=== PATIENT | female | born 1965 | race African-American/Black ===

== ENCOUNTER 2021-12-27 08:59 | Emergency (ER) | payer OTHER, SELFPAY ==
[2021-12-27 09:09] VITALS: BP 130/74; BP 130/85; PULSE 75; PULSE 91; RESP 16; TEMP 36.7; O2SAT 97; O2SAT 98; BMI 20.5
[2021-12-27 09:55] LABS: Glucose, Whole Blood 202 mg/dL (60-115)
[2021-12-27 10:04] LABS: MANUAL DIFF FLAG NO
[2021-12-27 10:06] LABS: Hematocrit 40.7 % (37.0-47.0); Hemoglobin 13.3 g/dl (12.0-16.0); Imm Gran Abs Auto 0.01 X10*3/uL (0.00-0.03); Imm Gran Pct Auto 0.3 % (0.0-0.4); Lymphocytes Absolute Auto 1.1 X10*3/uL (1.2-4.9); Lymphocytes Percent Auto 33.4 % (20-40); Mean Corpuscular HGB Conc 32.7 g/dl (31.0-35.0); Mean Corpuscular Hemoglobin 30.4 pg (27.0-33.0); Mean Corpuscular Volume 93.1 fL (80.0-98.0); Mean Platelet Volume 9.5 fL (9.4-12.3); Monocytes Absolute Auto 0.3 X10*3/uL (0.1-1.2); Monocytes Percent Auto 9.2 % (2-11); Neutrophils Absolute Auto 1.9 x10*3/uL (2.0-8.3); Neutrophils Percent Auto 57.1 % (45-73); Platelet Count 152 X10*3/uL (160-400); Red Blood Count 4.37 X10*6/uL (4.20-5.50); White Blood Count 3.3 X10*3/uL (4.8-10.8)
[2021-12-27 10:26] LABS: Alanine Aminotransferase 22 U/L (0-31); Albumin Level 4.1 g/dL (3.5-5.0); Alkaline Phosphatase 87 U/L (39-117); Anion Gap 11 (12-20); Aspartate Amino Transferase 25 U/L (5-31); Bilirubin Total 0.4 mg/dL (0.0-1.0); Blood Urea Nitrogen 16 mg/dL (9-16); Calcium 9.1 mg/dL (8.4-10.2); Carbon Dioxide 26 mmol/L (22-29); Chloride 103 mmol/L (96-108); Creatinine Clr Calc Pharmacy 64.8; Estimated Glomerular Filt Rate > 60; Glucose Random 247 mg/dL (60-115); Potassium 4.4 mmol/L (3.3-5.1); Sodium 136 mmol/L (135-145); Total Protein 7.7 g/dL (6.5-8.0)
--- NOTE | 2021-12-27 11:00 | ECG_ITS ---
Test Reason : NEAR SYNOPE Blood Pressure : / mmHG Vent. Rate : 063 BPM Atrial Rate : 063 BPM P-R Int : 194 ms QRS Dur : 082 ms QT Int : 426 ms P-R-T Axes : 061 031 037 degrees QTc Int : 435 ms Normal sinus rhythm Septal infarct (cited on or before 27-DEC-2021) Abnormal ECG When compared with ECG of 12-NOV-2018 21:11, No significant change was found Referred By: Rosa Elena Linton Electronically Signed By:Emmanuel Means
[2021-12-27] MEDS: Ketorolac Tromethamine 30 MG/ML VIAL IVPUSH (11:19)
[2021-12-27] MEDS: Cyclobenzaprine HCl 10 MG TABLET PO (11:19)
--- NOTE | 2021-12-27 11:33 | ED.BACK ---
HPI - Back Pain/Injury General Chief Complaint: Back Pain/Injury Stated Complaint: NEAR SYNCOPE Time Seen by Provider: 12/27/21 10:59 Source: patient Mode of arrival: EMS Limitations: no limitations History of Present Illness HPI Narrative: Patient presents to the emergency department for evaluation of right mid back pain. She reports that she experiences chronic lower back pain Secondary to bulging discs, arthritis, degenerative disc disease for which she treats with topical heat and Aleve. For the past week she has been having mid right-sided back pain that feels like a spasm . Today while she was at work the pain became very severe, and she sat herself on the floor. Denies lower extremity weakness or giving out of her legs. No head strike or precipitating dizziness/lightheadedness. Upon EMS arrival noted to have blood sugar of 351, reports she a yogurt earlier this morning, no history of diabetes, but has not been seen by primary care provider for at least 2 years. Denies fevers, chills, lightheadedness, dizziness, neck pain, chest pain, palpitations, shortness of breath, difficulty breathing, nausea, vomiting, abdominal pain, diarrhea, constipation, bloody or dark stools, dysuria, urinary frequency, hematuria, lower extremity edema, numbness or tingling to the extremities or perineum, bowel or bladder dysfunction. Denies any recent surgical procedures, any known immune compromising conditions, personal history of cancer, or IV drug usage. Related Data Allergies Allergy/AdvReac Type Severity Reaction Status Date / Time No Known Allergies Allergy Verified 12/27/21 09:13 Review of Systems Review of Systems: Constitutional: No weight loss, fever, chills, weakness or fatigue. Skin: No rash or itching. Cardiovascular: No chest pain, chest pressure or chest discomfort. No palpitations or pedal edema. Respiratory: No shortness of breath, cough or sputum production. Gastrointestinal: No anorexia, nausea, vomiting or diarrhea. No abdominal pain or blood in stool. Genitourinary: No burning micturition. No urinary frequency or incontinence. Musculoskeletal: positive back pain. No muscle pain, joint pain or stiffness. Psychiatric: No depression or anxiety. Yes all other systems are reviewed and are negative PMFSH Past Medical History Attestation statement: The following information was validated with the patient. Source: old records reviewed Medical History Arthritis DJD (degenerative joint disease) Hepatitis C Social History Social History Alcohol intake: current Patient Tobacco Use Status: Current everyday Tobacco user Use of substances other than those prescribed or required for medical reasons: No Advance Directives: No Advance Directives Information Provided: No Physical Exam Vital Signs: Vital Signs: Last Vital Signs Temp 98.1 F 12/27/21 09:09 Pulse 75 12/27/21 09:09 Resp 16 12/27/21 09:09 BP 130/74 12/27/21 09:09 Pulse Ox 97 12/27/21 09:09 BMI result Body Mass Index 20.5 Vital signs have been reviewed as normal and appeared to be correct. Blood pressure normal.? Heart rate normal.? Respiration rate normal. Temperature normal.? Oxygen saturation normal. Appearance: Alert.?Oriented to person, place and time. No acute distress.?Normal affect. Eyes: Pupils equal, round and reactive to light.? ENT: Pharynx normal.?? Neck: Normal inspection.? Neck supple.?? CVS: Heart sounds normal. Normal heart rate and rhythm.? Pulses normal; bilateral radial pulses 2+, bilateral posterior tibial/dorsalis pedis pulses 2+.? Respiratory: No respiratory distress.? Lung sounds clear to auscultation bilaterally?? Abdomen: Soft and non-tender. Normoactive bowel sounds. No pulsatile mass.?? Skin: Skin warm and dry.? Normal skin color.? Normal skin turgor.?? Extremities: No lower extremity edema.? No calf ttp? Back: + mild paraspinal muscular tenderness from lumbar region to coccyx. No CVA tenderness. No midline spinal tenderness, step-off's, or deformity. Full ROM intact in bilateral lower extremities. Straight leg test negative / positive on right; Straight leg test negative / positive on left. No rashes, lesions, areas of induration or fluctuance, or signs of infection noted., Neuro: Moves all extremities spontaneously. 5/5 strength in hip extension/flexion, abduction, adduction. Sensation to light touch intact bilaterally. Patellar and Achilles reflex 2+ bilaterally. No ataxia, gait normal and steady.. No focal neuro deficits. ( Squat and rise - L4 / Heel walk or dorsiflex - L5 / Toe walk - S1) Course Course Course Narrative: patient is a 56-year-old female with a past medical history degenerative disc disease, arthritis, hepatitis C reportedly has not been on treatment for the past 2 years, presenting to the emergency department for evaluation of right mid back pain that feels like spasming. Denies precipitating injury and does have chronic lower back pain. Pain seems most consistent with muscular pain, although cannot completely exclude herniated disc. On neurological exam there are no deficits. Not consistent with spinal fracture, spinal infection, epidural abscess, AAA, epidural abscess, or dissection. No high risk past medical history including incontinence, fever, immunosuppression, recent surgery or lumbar puncture, coagulopathy, significant trauma, recent unintentional weight loss, pulsatile mass, history of cancer, history of TB, history of IV drug use that would warrant MRI or CT. On exam no concern for cauda equina syndrome. No imaging is currently indicated at this time. For EMS patient was noted to have an elevated blood glucose reading in the 300s, without any prior history of known diabetes, repeat point of care glucose was 202. Discussed with patient that she may be diabetic based on this finding alone as it has been many hours since she last ate, will obtain urinalysis to evaluate for glucosuria. In addition will obtain CBC, CMP, troponin, EKG. Patient has arrived, her significant other, patient to be medicated with Toradol 30 mg IV push and Flexeril 10 mg p.o. Reevaluation(s) Reevaluation #1: presented to patient's room for re-evaluation at this time and she is not present, hospital attire on the bed, advised by nursing staff that patient had eloped. Urinalysis does reveal glucosuria, concern for new diagnosis of diabetes, BUN and creatinine are stable, anion gap is Magalys, not suspect DKA at this time. Troponin <3.5, EKG reveals normal sinus rhythm. Attempted to contact patient at her listed contact phone number, to advise her of concern for new diagnosis of diabetes, unable to make contact, left voicemail. Of note patient did report to me that she has an upcoming appointment with a new primary care provider next week, She reported she has not seen a primary care provider within the past 2 years at least. Time: 14:19 [facility] - Back Pain/Injury Medical Records Attestation: I reviewed the patient's medical records. Lab Data Attestation: I reviewed the patient's lab results. Result diagrams: 12/27/21 09:57 12/27/21 09:57 Labs: Lab Results 12/27/21 12/27/21 12/27/21 Range/Units 09:50 09:57 09:57 WBC 3.3 L (4.8-10.8) X10*3/uL RBC 4.37 (4.20-5.50) X10*6/uL Hgb 13.3 (12.0-16.0) g/dl Hct 40.7 (37.0-47.0) % MCV 93.1 (80.0-98.0) fL MCH 30.4 (27.0-33.0) pg MCHC 32.7 (31.0-35.0) g/dl RDW 11.0 (11.0-16.0) % Plt Count 152 L (160-400) X10*3/uL MPV 9.5 (9.4-12.3) fL Immature Gran % (Auto) 0.3 (0.0-0.4) % Neut % (Auto) 57.1 (45-73) % Lymph % (Auto) 33.4 (20-40) % Sanders % (Auto) 9.2 (2-11) % Eos % (Auto) 0.0 (0-4) % Baso % (Auto) 0.0 (0-2) % Lymph # (Auto) 1.1 L (1.2-4.9) X10*3/uL Sanders # (Auto) 0.3 (0.1-1.2) X10*3/uL Eos # (Auto) 0.0 (0.0-0.4) X10*3/uL Baso # (Auto) 0.0 (0.0-0.2) X10*3/uL Abs Immat Gran (auto) 0.01 (0.00-0.03) X10*3/uL Absolute Neuts (auto) 1.9 L (2.0-8.3) x10*3/uL Absolute Nucleated RBC 0.000 (0.0-0.012) X10*3/uL Nucleated RBC % (auto) 0.0 (0.0-0.2) /100WBC Sodium 136 (135-145) mmol/L Potassium 4.4 (3.3-5.1) mmol/L Chloride 103 (96-108) mmol/L Carbon Dioxide 26 (22-29) mmol/L Anion Gap 11 L (12-20) BUN 16 (9-16) mg/dL Creatinine 0.86 (0.5-1.4) mg/dL Estim Creat Clear Calc 64.8 Estimated GFR > 60 POC Glucose 202 H (60-115) mg/dL Random Glucose 247 H (60-115) mg/dL Calcium 9.1 (8.4-10.2) mg/dL Total Bilirubin 0.4 (0.0-1.0) mg/dL AST 25 (5-31) U/L ALT 22 (0-31) U/L Alkaline Phosphatase 87 (39-117) U/L Troponin I High Sens (<3.5-17.0) ng/L Total Protein 7.7 (6.5-8.0) g/dL Albumin 4.1 (3.5-5.0) g/dL Urine Color Urine Appearance Urine pH (5.0-8.0) Ur Specific [place] (1.005-1.025) Urine Protein (NEG-TRACE) MG/DL Urine Glucose (UA) (NEG) MG/DL Urine Ketones (NEG) MG/DL Urine Blood (NEG) Urine Nitrite (NEG) Ur Leukocyte Esterase (NEG) 12/27/21 12/27/21 Range/Units 09:57 11:22 WBC (4.8-10.8) X10*3/uL RBC (4.20-5.50) X10*6/uL Hgb (12.0-16.0) g/dl Hct (37.0-47.0) % MCV (80.0-98.0) fL MCH (27.0-33.0) pg MCHC (31.0-35.0) g/dl RDW (11.0-16.0) % Plt Count (160-400) X10*3/uL MPV (9.4-12.3) fL Immature Gran % (Auto) (0.0-0.4) % Neut % (Auto) (45-73) % Lymph % (Auto) (20-40) % Sanders % (Auto) (2-11) % Eos % (Auto) (0-4) % Baso % (Auto) (0-2) % Lymph # (Auto) (1.2-4.9) X10*3/uL Sanders # (Auto) (0.1-1.2) X10*3/uL Eos # (Auto) (0.0-0.4) X10*3/uL Baso # (Auto) (0.0-0.2) X10*3/uL Abs Immat Gran (auto) (0.00-0.03) X10*3/uL Absolute Neuts (auto) (2.0-8.3) x10*3/uL Absolute Nucleated RBC (0.0-0.012) X10*3/uL Nucleated RBC % (auto) (0.0-0.2) /100WBC Sodium (135-145) mmol/L Potassium (3.3-5.1) mmol/L Chloride (96-108) mmol/L Carbon Dioxide (22-29) mmol/L Anion Gap (12-20) BUN (9-16) mg/dL Creatinine (0.5-1.4) mg/dL Estim Creat Clear Calc Estimated GFR POC Glucose (60-115) mg/dL Random Glucose (60-115) mg/dL Calcium (8.4-10.2) mg/dL Total Bilirubin (0.0-1.0) mg/dL AST (5-31) U/L ALT (0-31) U/L Alkaline Phosphatase (39-117) U/L Troponin I High Sens < 3.5 (<3.5-17.0) ng/L Total Protein (6.5-8.0) g/dL Albumin (3.5-5.0) g/dL Urine Color YELLOW Urine Appearance CLEAR Urine pH 6.0 (5.0-8.0) Ur Specific [place] 1.015 (1.005-1.025) Urine Protein NEG (NEG-TRACE) MG/DL Urine Glucose (UA) 250 H (NEG) MG/DL Urine Ketones NEG (NEG) MG/DL Urine Blood NEG (NEG) Urine Nitrite NEG (NEG) Ur Leukocyte Esterase NEG (NEG) ECG Data Attestation: I personally reviewed and interpreted this ECG as follows: ECG interpretation date: 12/27/21 Interpretation: Rate: 63 Rhythm:? normal sinus rhythm [place]:? normal Normal P waves.? Normal RADHA.?? Normal QRS complex.?? ST T wave :?? no ST elevation, no ST depression qTC: 435 prior studies:? November 2018 The study has been interpreted contemporaneously by me. Discharge Plan Discharge Clinical Impression: Back pain, Acute hyperglycemia Patient Disposition: Elopement
[2021-12-27 11:36] LABS: Appearance Urine CLEAR; Color Urine YELLOW; Glucose Urine UA 250 MG/DL (NEG); Leukocyte Esterase Urine NEG (NEG); Nitrite Urine NEG (NEG); Specific Gravity - Urine 1.015 (1.005-1.025); Urine Blood NEG (NEG); Urine Ketones NEG (NEG); Urine Protein NEG (NEG-TRACE)
[2021-12-27 12:15] LABS: Troponin-I High Sensitivity < 3.5 ng/L (<3.5-17.0)
== END 2021-12-27 14:24 | disposition left against medical advice (07) ==
PROVIDERS: Nurse Practitioner Family; Emergency Provider Emergency Medicine Emergency Medical Services
DX: R55 Syncope and collapse (principal); M54.50 Low back pain, unspecified; E72.51 Non-ketotic hyperglycinemia; F17.200 Nicotine dependence, unspecified, uncomplicated; Z71.6 Tobacco abuse counseling; Z79.899 Other long term (current) drug therapy
CPT/HCPCS: 36415; 80053; 81003; 82947; 84484; 85025; 93005; 96374; 99284; J1885

== ENCOUNTER 2021-12-28 08:08 | Emergency (ER) | payer OTHER, SELFPAY ==
[2021-12-28 08:28] VITALS: BP 128/85; PULSE 88; RESP 18; TEMP 36.8; O2SAT 100; BMI 21.3
--- NOTE | 2021-12-28 10:55 | ED.FALL ---
HPI - Fall General Chief Complaint: Fall Stated Complaint: FALL WRI Time Seen by Provider: 12/28/21 09:58 Source: patient Mode of arrival: ambulatory Limitations: no limitations History of Present Illness HPI Narrative: 56 y/o female presenting to the ER for work clearance. She was seen here yesterday for low back pain s/p slip and fall at work. She eloped after being here for 7+ hours and went home without her d/c paperwork. Her work is requesting she get re-evaluated for clearance to return to work. She reports her low back is mildly sore but nothing unbearable. She took tylenol with some relief. She slept well. No numbness, weakness, or tingling in the legs. No bowel or bladder incontinence. She is walking well and would like to go back to work today. MD complaint: fall Onset (ago): day(s) (1) Fall from: standing Fall witnessed: yes, by bystander Place fall occurred: work Loss of consciousness: none Prolonged down time: no Symptoms prior to fall: none Context: tripped/slipped Location of injury: back and buttocks Severity: mild Severity scale (1-10): 2 Quality: aching Associated symptoms (after fall): denies Related Data Allergies Allergy/AdvReac Type Severity Reaction Status Date / Time No Known Allergies Allergy Verified 12/28/21 08:28 Review of Systems Review of Systems: Constitutional: No Fever, No Chills Cardiovascular: No Chest Pain, No SOB Gastrointestinal: No Nausea, No Vomiting, No abdominal Pain Genitourinary: No Dysuria, No Urinary Frequency, No Hematuria Musculoskeletal: + joint pain, + Myalgias Skin: No Skin Lesions, No rash Neuro: No Weakness, No Numbness, No Dizziness, No Headache Heme/Lymph: No Bruising Endocrine: No Polyuria, No Polydipsia PMFSH Past Medical History Medical History Arthritis DJD (degenerative joint disease) Hepatitis C Social History Social History Alcohol intake: current Patient Tobacco Use Status: Current everyday Tobacco user Advance Directives: No Advance Directives Information Provided: No Physical Exam Vital Signs: Vital Signs: Last Vital Signs Temp 98.3 F 12/28/21 08:28 Pulse 88 12/28/21 08:28 Resp 18 12/28/21 08:28 BP 128/85 12/28/21 08:28 Pulse Ox 100 12/28/21 08:28 BMI result Body Mass Index 21.3 Appearance: Alert. Oriented X3. No acute distress. HEENT: normal inspection CVS: Normal heart rate and rhythm. Pulses normal. Respiratory: No respiratory distress. Skin: Skin warm and dry. Normal skin color. Normal skin turgor. No rashes. ack: Normal inspection. Mild soft tissue tenderness of the low lumbar area bilaterally, no ecchymosis. Normal range of motion of the spine. No point tenderness or midline tenderness. Extremities: Atraumatic x4, normal inspection. Neuro: Oriented X 3. No motor deficit. No sensory deficit. steady gait. Course Course Course Narrative: 56-year-old female presents for re-evaluation and return to work after a low being from the ER yesterday after a fall. Her examination is largely unremarkable and she has no red flag symptoms of low back pain. At this time she is cleared to go back to work. She is meeting with her PCP next Saturday for the 1st time evaluation. She was hyperglycemic yesterday with no history of diabetes. She is stable for discharge home with outpatient follow-up. May return to work. Critical Care Time Critical Care Time Critical Care Time: No Discharge Plan Discharge Clinical Impression: Low back pain Patient Disposition: Home, Self-Care Additional Instructions: Follow up with your doctor next week as scheduled. Take Motrin and/or Tylenol as needed for back pain. If you develop new or worsening symptoms call 911 or come back to the ER for further evaluation. Stand Alone Forms: Work/School Release
== END 2021-12-28 11:11 | disposition home or self-care (01) ==
PROVIDERS: Emergency Provider Emergency Medicine
DX: Z04.2 Encounter for examination and observation following work accident (principal); M54.50 Low back pain, unspecified
CPT/HCPCS: 99282

== ENCOUNTER 2023-09-15 14:50 | Emergency (ER) | payer OTHER, SELFPAY ==
[2023-09-15 14:57] VITALS: BP 140/76; PULSE 90; RESP 18; TEMP 35.7; O2SAT 100; BMI 17.6
--- NOTE | 2023-09-15 15:02 | ED_ITS ---
HPI - Back Pain/Injury General Chief Complaint: Back Pain/Injury Stated Complaint: Dizziness/leg weakness Time Seen by Provider: 09/15/23 15:42 Source: patient Mode of arrival: ambulatory Limitations: no limitations History of Present Illness HPI Narrative: Patient is a 58 year old assigned female at with no reported medical history presenting to the emergency department today with low back pain. Patient states that she has been having low back pain for a few days that radiates down her legs, left more than right. Patient states that she had a muscle relaxer at home that she took and that made her dizzy. Patient states that Diclofenac works well but she does not have any more at home. Patient denies any dizziness, lightheadedness, abdominal pain, nausea, vomiting, fever, chills, blurry vision, double vision, loss of vision, chest pain, difficulty breathing, shortness of breath, night sweats, pain with urination, increased urinary frequency, increased urinary urgency, blood in her urine or stool, syncope or a near syncopal episode, recent trauma or falls, bowel incontinence, bladder incontinence, bowel retention, bladder retention, or any other complaints at this time. Onset (ago): day(s) Timing: constant Severity: mild Related Data Previous Rx's Medication Instructions Recorded diclofenac potassium 50 mg tablet 50 mg PO BID #14 tabs 09/15/23 Allergies Allergy/AdvReac Type Severity Reaction Status Date / Time No Known Allergies Allergy Verified 09/15/23 14:57 Review of Systems Constitutional: Constitutional: Reports no additional constitutional complaints, Denies chills, Denies fever(s) and Denies night sweats Eyes: Eyes: Reports no additional eye complaints, Denies blurry vision, Denies change in vision, Denies diplopia, Denies eye discharge, Denies loss of vision and Denies eye pain ENT: Denies dizziness Cardiovascular: Cardiovascular: Reports no additional cardiovascular complaints, Denies chest pain, Denies lightheadedness, Denies Loss of Consciousness and Denies dyspnea Respiratory: Respiratory: Reports no additional respiratory complaints and Denies dyspnea Gastrointestinal: Gastrointestinal: Reports no additional gastrointestinal complaints, Denies abdominal pain, Denies melena, Denies hematochezia, Denies change in bowel habits and Denies change in stool character Genitourinary: Genitourinary: Denies hematuria, Denies urinary frequency, Denies dysuria, Denies urinary incontinence, Denies urinary hesitancy and Denies urinary urgency Musculoskeletal: Musculoskeletal: Reports no additional musculoskeletal complaints, Reports back pain, Denies numbness and Denies tingling Neurologic: Denies dizziness, Denies loss of vision, Denies numbness and Denies tingling Psychiatric: Psychiatric: Reports no additional psychiatric complaints Endocrine: Endocrine: Reports no additional endocrine complaints Hematologic/Lymphatic: Hematologic/Lymphatic: Reports no additional hematologic/lymphatic complaints Allergic/Immunologic: Allergic/Immunologic: Reports no additional allergic/immunologic complaints [facility] Past Medical History Attestation statement: The following information was validated with the patient. Source: old records reviewed and nursing notes reviewed Medical History Hepatitis C Arthritis DJD (degenerative joint disease) Social History Social History Alcohol intake: current Patient Tobacco Use Status: Current everyday Tobacco user Advance Directives: No Advance Directives Information Provided: Yes Physical Exam Vital Signs: Vital Signs: Last Vital Signs Temp 96.2 F L 09/15/23 14:57 Pulse 90 09/15/23 14:57 Resp 18 09/15/23 14:57 BP 140/76 H 09/15/23 14:57 Pulse Ox 100 09/15/23 14:57 O2 Del Method Room Air 09/15/23 14:57 BMI result Body Mass Index 17.6 Const: General: cooperative, no acute distress, alert and awake Nutritional Appearance: well nourished Orientation/consciousness: patient oriented x3 Limitations: no limitations HEENT: Head: Yes normal to inspection and Yes atraumatic Ears: hearing grossly normal bilaterally and external ears normal General nose exam: Normal external nose present, no nasal discharge noted and no epistaxis Face and sinus: Yes normal facial exam, No abrasion and No laceration Mouth: Normal oral and palatal mucosa present, no drooling and no muffled voice Eyes: General: appearance normal, both eyes and all related structures Periorbital: periorbital findings normal Eyelids: Yes eyelids normal Conjunctivae: conjunctivae normal Pupils: Equal, round and reactive pupils present EOM: EOMs intact bilaterally Neck: Neck: Yes normal visual inspection, Yes full ROM and Yes no lymphadenopathy Chest: Chest palpation & inspection: normal inspection of the chest Resp: Effort & Inspection: normal respiratory effort and able to speak in complete sentences GI: Inspection: Yes normal to inspection : General: Yes no CVA tenderness Back/Spine/Pelvis: Back: no CVA tenderness Cervical Spine: normal cervical lordosis and cervical ROM normal Thoracic/Lumbar Spine: thoracic and lumbar spine normal to inspection Pelvis: no pain with anterior-posterior compression Neuro: General: patient oriented x3 and moves all extremities Cranial nerves: Yes Equal, round and reactive pupils present Cognition (Neuro): normal cognition Motor exam (neuro): 5/5 motor strength present throughout Sensory Exam: Normal double simultaneous stimulation for sensation Coordination: [id number] test normal Extrem: General: Yes normal to inspection, Yes full ROM and Yes capillary re fill normal Psych: Appearance: grossly normal Mental Status: mental status grossly normal Affect: normal affect Attitude: cooperative Thought process: Normal thought process present Thought content: Normal thought content present Insight: Good insight present (Psych) Course Course Course Narrative: RME; 58 yold female presents tot he ED for worsenig back pain. patient has known PMH of lumbar and cervical discs herniaiaont. feels sleepy due to taking muscle relaxer. be evaluated in [facility] Medications Administered Discontinued Medications Generic Name Dose Route Start Last Admin Trade Name Freq PRN Reason Stop Dose Admin Ketorolac Tromethamine 15 mg 09/15/23 15:56 09/15/23 16:51 Ketorolac Tromethamine 15 Mg/Ml Vial IM 09/15/23 15:57 15 mg ONCE ONE Administration Medical Decision Making Medical Decision Making [facility] Narrative: Patient is a 58 year old assigned female at with no reported medical histo ry presenting to the emergency department today with low back pain. Patient's physical exam was unremarkable. I explained my physical exam findings to the patient. I answered all questions asked by the patient. I stressed the importance of the patient taking her medication as prescribed. I stressed the importance of the patient following up with her primary care provider. I stressed the importance of the patient returning to the emergency department immediately if her symptoms were to worsen or if she were to develop any dizziness, shortness of breath, difficulty breathing, chest pain, blurry vision, loss of vision, nausea, vomiting, abdominal pain, fever, chills, back pain, or any other complaints. Patient verbalized agreement and understanding with this treatment plan and discharge. Differential Diagnosis Differential Diagnoses: The differential diagnosis associated with the presentation includes Low back pain Lumbar strain Sciatica Admission/Observation Consideration of admission/observation: Escalation of care including admission/observation considered Patient would have been admitted to the hospital had her clinical presentation warranted hospital admission. Prescription Management I considered prescription management with: Pain Medication (patient prescribed pain medication) Discharge Plan Discharge Clinical Impression: Strain of lumbar region Patient Disposition: Home, Self-Care Instructions: Acute Low Back Pain (ED) Additional Instructions: Follow up with your primary care provider. Return to the emergency department immediately if your symptoms worsen or if you develop any dizziness, shortness of breath, difficulty breathing, chest pain, blurry vision, loss of vision, nausea, vomiting, abdominal pain, fever, chills, back pain, or any other complaints. Prescriptions: New diclofenac potassium 50 mg tablet 50 mg PO BID Qty: 14 0RF Referrals: Dagoberto Miranda DO [Primary Care Provider] - Stand Alone Forms: Work/School Release Print Language: Pakistani
[2023-09-15] MEDS: Ketorolac Tromethamine 15 MG/ML VIAL IM (16:51)
--- NOTE | 2023-09-15 17:03 | PC.NURSE ---
pt medicated per OCT for 6/10 back pain.
== END 2023-09-15 17:04 | disposition home or self-care (01) ==
PROVIDERS: Emergency Provider Emergency Medicine Emergency Medical Services; PCP Pediatrics
DX: S39.012A Strain of muscle, fascia and tendon of lower back, initial encounter (principal); X58.XXXA Exposure to other specified factors, initial encounter; Y93.9 Activity, unspecified; Y92.9 Unspecified place or not applicable; Y99.8 Other external cause status
CPT/HCPCS: 96372; 99283; 99284; J1885

== ENCOUNTER 2023-09-18 08:49 | Outpatient (REF) | payer OTHER, SELFPAY | END 2023-09-18 08:50 | disposition home or self-care (01) | LOC: HO.HOSX 08:49 | PROVIDERS: Visit Provider Physical Medicine & Rehabilitation | DX: Z13.89 Encounter for screening for other disorder (principal) ==

== ENCOUNTER 2023-09-18 10:35 | Outpatient (AMB) | payer OTHER, SELFPAY ==
--- NOTE | 2023-09-18 10:54 | A.OFFVIS_ITS ---
Intake Intake Visit Reasons: Acute Low Back Pain Intake Note: Cele is a 58 year old female who presents toay with complaints of lower back pain. Patient reports that she has chronic lower back pain with tingling/pain radiating down the legs, left worse than right. She has tried muscle relaxer but this made her dizzy. She takes diclofenac which is helpful but she has run out. Hx of physical therapy that has been helpful. She feels pain all the time, with little releif. Allergies No Known Allergies Allergy (Verified 09/15/23 14:57) Medication List - Last Reconciled 09/18/23 by Marie Cowan MD diclofenac potassium 50 mg PO BID duloxetine 60 mg PO DAILY HPI HPI Comments History of Present Illness Details Here with . Been having lower back pain and leg pain, 3 weeks. Denies falls or accidents prior. 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 New onset constant left back pain, radiates goes to left groin, knee and you. Sometimes numbness on bottom of left foot. Pain with walking, left knee feels like it will give way. No incontinence. Been constipated. No urination issues. Had similar incident, 12 years ago, treated with PT, got better after. 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 Patient was appropriately conversant and oriented. Good historian. MSK: No specific abnormalities found on inspection of the spine and all extremities. Tender lumbar paraspinals and SI joints bilateral. No tenderness over spinous processes. Lumbar ROM was full. Bilateral hip, knee and ankle ROM WNL. No ligamentous laxity or crepitance. No increased effusion. Straight-leg raising test negative. FABERE test negative. Strength is 5/5 in all muscle groups tested. No increased tone noted. Neurological: Strength 5/5. Depressed reflexes bilateral patellar? Intact reflexes on ankles. Kimball?s negative bilaterally. Babinski was down going bilaterally. Clonus was negative. Gait is non-antalgic without loss of balance. Results Reviewed Results Reviewed: I independently reviewed the results of the following: She brought a CD of lumbar x-rays done externally. Decreased disc space seen between L3, L4, L5. Did not see fracture but images unclear. No official reading came with the CD. 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 Sending patient for urgent lumbar MRI to evaluate for disc herniation. Patient returning to work tomorrow but I will give her restrictions, no lifting above 10 lb and no bending. May continue NSAIDs and duloxetine. Discussed red flags to watch out for and to seek Urgent Care if so. Assessment and plan discussed with patient, and patient was agreeable. All questions were answered thoroughly. Follow-up after MRI. 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
== END 2023-09-18 11:29 | disposition home or self-care (01) ==
PROVIDERS: PCP Pediatrics; Visit Provider Physical Medicine & Rehabilitation
DX: M51.36 Other intervertebral disc degeneration, lumbar region (principal); M51.26 Other intervertebral disc displacement, lumbar region; M54.12 Radiculopathy, cervical region
CPT/HCPCS: 99204

== ENCOUNTER 2023-11-14 18:03 | Outpatient (REF) | payer SELFPAY ==
--- NOTE | ~2023-11-14 | MR_ITS ---
EXAMINATION: MR LUMBAR SPINE WITHOUT CONTRAST CLINICAL INFORMATION: Radiculopathy COMPARISON: Outside MRI lumbar spine 11/14/2018 TECHNIQUE: MRI of the lumbar spine was obtained using routine sequences without contrast. FINDINGS: Motion degraded examination Normal anatomic alignment. No suspicious marrow signal or focal osseous lesion. The vertebral body heights are maintained. Disc desiccation and height loss at L3-L4 and L4-L5 where there are degenerative endplate contour changes and mixed type I and type II endplate marrow signal changes. The conus medullaris terminates at the level of T12-L1. The distal spinal cord is normal in appearance. The cauda equina nerve roots appear normal. No significant abnormalities of the paraspinal musculature. Limited evaluation of the intra-abdominal structures without significant abnormalities. The abdominal aorta is of normal contour and caliber. SPINAL LEVELS: L1-L2: No significant spinal canal or neuroforaminal narrowing. L2-L3: Shallow broad-based disc bulge. Stable mild bilateral neural foraminal narrowing. L3-L4: Disc osteophyte complex, facet arthropathy. No significant central spinal canal stenosis. Stable subarticular zone narrowing with compression of the traversing L4 nerve roots and moderate right and severe left neural foraminal narrowing with impingement of the exiting L3 nerve roots. L4-L5: Disc osteophyte complex, facet arthropathy. No significant central spinal canal stenosis. Stable subarticular zone narrowing with mass effect on the traversing L5 nerve roots and severe right and moderate left neural foraminal narrowing with impingement of the exiting L4 nerve roots. L5-S1: No significant spinal canal or neuroforaminal narrowing. Shallow central disc protrusion and facet arthropathy. MR/MR lumbar spine wo con IMPRESSION: Motion degraded examination. Multilevel lumbar spondylosis has not significantly progressed compared to MRI from 11/14/2018, most notable at L3-L4 and L4-L5 where there is bilateral subarticular zone narrowing with mass effect on the traversing L4 and L5 nerve roots and moderate to severe bilateral neural foraminal narrowing with impingement of the exiting L3 and L4 nerve roots.
== END 2023-11-14 18:04 | disposition home or self-care (01) ==
LOC: HO.MRI 18:03
PROVIDERS: PCP Pediatrics; Visit Provider Physical Medicine & Rehabilitation
DX: M54.12 Radiculopathy, cervical region (principal); M51.36 Other intervertebral disc degeneration, lumbar region; M51.26 Other intervertebral disc displacement, lumbar region
CPT/HCPCS: 72148

== ENCOUNTER 2023-12-26 14:09 | Emergency (ER) | payer OTHER, SELFPAY ==
--- NOTE | ~2023-12-26 | XR_ITS ---
EXAMINATION: XR LUMBOSACRAL SPINE CLINICAL INFORMATION: Low back pain COMPARISON: MRI lumbar spine from 11/14/2023 TECHNIQUE: Three views of the lumbosacral spine. FINDINGS: 5 nonrib-bearing lumbar-type vertebral bodies. No acute visible fracture or dislocation. Slight levocurvature of the thoracolumbar junction. Moderate multilevel degenerative changes greatest at L3-L4 and L4-L5 with disc space narrowing, endplate process, vacuum disc phenomenon, osteophyte from it, and lower lumbar spine facet arthropathy. Vertebral body heights and disc spaces are maintained. Posterior bones are intact. Paraspinal soft tissues are unremarkable. Fecal loading the visualized colon. XR/XR lumbar spine 2-3V IMPRESSION: 1. No acute visible fracture or dislocation. 2. Slight levocurvature of the thoracolumbar junction. 3. Moderate multilevel degenerative changes greatest at L3-L4 and L4-L5.
--- NOTE | ~2023-12-26 | XR_ITS ---
EXAMINATION: XR ABDOMEN KUB CLINICAL INDICATION: Constipation COMPARISON: None available. TECHNIQUE: AP view of the abdomen. FINDINGS: No dilated loops of bowel to suggest obstruction. Mild to moderate fecal loading greatest in the distal transverse, descending, and sigmoid colon. Dextrocurvature of the thoracal lumbar spine. Visualized portions of the chest are unremarkable. Soft tissues are unremarkable. XR/XR KUB IMPRESSION: 1. No dilated loops of bowel to suggest obstruction. 2. Mild to moderate fecal loading greatest in the distal transverse, descending, and sigmoid colon.
[2023-12-26 14:25] VITALS: BP 131/84; PULSE 97; RESP 18; TEMP 36.2; O2SAT 100; BMI 17.0
--- NOTE | 2023-12-26 14:29 | ED_ITS ---
HPI - General Adult General Chief complaint: General Medical Stated complaint: Pain both legs, constipation Time Seen by Provider: 12/26/23 19:01 Source: patient Mode of arrival: ambulatory Limitations: no limitations History of Present Illness ED Provider: Lia Glez PA-C HPI narrative: 58 yo female with PMH significant for degeneration of lumbar intervertebral disc with acute herniation and recently diagnosed DM, presents to the ED for evaluation of constipation and lower back pain s/p injury. The patient states she has been constipated for greater than one month now. She reports having approximately one BM per week. Last BM was earlier today and described as small marbles. No blood in stool. She is passing flatus. Endorses associated abdominal pain at the level of the umbilicus, as well as abdominal bloating. She describes nausea, but no vomiting. She was prescribed stool softeners and laxatives by PCP, but provided minimal relief. Additionally, patient describes an injury to her back approximately one week ago. 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 She describes feeling lower back pain days following injury. She states she has taken tramadol prescribed by PCP, which has provided no relief. She has also taken Flexeril, which she states helps momentarily. Last taken yesterday. She describes movement and the cold worsen symptoms. She describes some relief with use of heat. Endorses associated radiation of pain and paresthesias into lower extremities bilaterally. She denies urinary symptoms. She thinks she may have experienced saddle paresthesias, but was unsure. complaint: Constipation, lower back pain Onset (ago): week(s) Location: back and abdomen (Abdominal discomfort ) Radiation: extremity Associated symptoms: nausea/vomiting Related Data Home Medications ?Medication ?Instructions ?Recorded ?Confirmed duloxetine 60 mg capsule,delayed 60 mg PO DAILY 09/18/23 09/18/23 release Previous Rx's ?Medication ?Instructions ?Recorded diclofenac potassium 50 mg tablet 50 mg PO BID #14 tabs 09/15/23 Allergies Allergy/AdvReac Type Severity Reaction Status Date / Time No Known Allergies Allergy Verified 12/26/23 14:26 Review of Systems 2 Review of Systems: Yes all other systems are reviewed and are negative PMFSH Past Medical History Medical History Hepatitis C Arthritis DJD (degenerative joint disease) Social History Social History (Updated 09/18/23 @ 10:59 by Ne Vera CMA) Alcohol intake: current Patient Tobacco Use Status: Current everyday Tobacco user Advance Directives: No Advance Directives Information Provided: No Do you have a plan to hurt others: No Plan Current occupational status: employed 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 Oriented X3. No acute distress. Head: normocephalic, atraumatic. Eyes: Pupils equal, round and reactive to light. ENT: Pharynx normal. Neck: Normal inspection. Neck supple. CVS: Normal heart rate and rhythm. Pulses normal. Respiratory: No respiratory distress. Abdomen: Tenderness to palpation right lateral umbilical region. Firm. Remainer of abdomen soft and non-tender. +BS x4 Skin: Skin warm and dry. Normal skin color. Normal skin turgor. No rashes. Extremities: No lower extremity edema. No joint swelling. Pedal pulses intact bilaterally. Tenderness to palpation of lumbar spine into right lateral region. Neuro/psych: Oriented X 3. No motor deficit. No sensory deficit. CN II-XII intact. Normal speech and cognition. Decreased sensation of bilateral feet. Course Course Course Narrative: This is a Rapid Medical Examination (RME) performed by Ilan Mtz PA-C in triage. Full HPI, ROS, assessment and treatment plan per primary provider in the Main ED. 58 yo female here for eval of constipation x1 month. Reports small bowel movement today the size of marbles. Last bowel movement for this was 1 week ago. She has been on bowel regimen the past month without much relief. +passing flatus. Additionally she endorses low back pain radiating to bilateral legs. History of ruptured and herniated discs. abd nd/nt. no peripheral or pedal edema. No midline spinous tenderness or step off deformity. No paraspinal muscle tenderness. Plan: labs, UA, KUB Medications Administered Discontinued Medications Generic Name Dose Route Start Last Admin Trade Name Florentino PRN Reason Stop Dose Admin Bisacodyl 10 mg 12/26/23 19:18 12/26/23 19:32 Bisacodyl 10 Mg Supp.Rect VA 12/26/23 19:19 10 mg ONCE ONE Administration Cyclobenzaprine HCl 10 mg 12/26/23 19:18 12/26/23 19:32 Cyclobenzaprine Hcl 10 Mg Tablet PO 12/26/23 19:19 10 mg ONCE ONE Administration Ketorolac Tromethamine 15 mg 12/26/23 19:18 12/26/23 19:33 Ketorolac Tromethamine 15 Mg/Ml Vial IM 12/26/23 19:19 Not Given ONCE ONE Lidocaine 1 patch 12/26/23 19:18 12/26/23 19:33 Lidocaine 4 % Patch Adh..Patch TRANSDERMA 12/26/23 19:19 Not Given ONCE ONE Protocol Polyethylene Glycol 17 gm 12/26/23 19:18 12/26/23 19:32 Polyethylene Glycol 3350 17 Gm Powd.Pack PO 12/26/23 19:19 17 gm ONCE ONE Administration Medical Decision Making Medical Decision Making [facility] Narrative: 58 yo female with PMH significant for degeneration of lumbar intervertebral disc with acute herniation and recently diagnosed DM, presents to the ED for evaluation of constipation and lower back pain s/p injury. HPI and physical exam as noted above. Labs unremarkable. KUB x-ray not concerning for bowel obstruction. Revealed mild to moderate fecal loading. Lumbar spine x-ray showed no acute fracture or dislocation. Patient most likely experiencing lower lumbar strain. Patient has no red flag symptoms of low back pain. She is comfortable. will plan to refer her to the product design specialist and have given multiple options for laxatives and stool softeners. She was given a Dulcolax suppository here. stable for discharge. Return precautions were discussed. Differential Diagnosis Differential Diagnoses: The differential diagnosis associated with the presentation includes Constipation, bowel obstruction, lumbar strain, herniated disc, sciatica. Low suspicion for cauda equina syndrome. Lab Data [facility] Lab Attestation statement: I reviewed the patient's lab results. Labs revealed no acute findings. 12/26/23 14:46 12/26/23 14:46 Labs: Lab Results 12/26/23 12/26/23 Range/Units 14:46 18:22 WBC 3.5 L (4.8-10.8) X10*3/uL RBC 4.16 L (4.20-5.50) X10*6/uL Hgb 13.0 (12.0-16.0) g/dl Hct 37.0 (37.0-47.0) % MCV 88.9 (80.0-98.0) fL MCH 31.3 (27.0-33.0) pg MCHC 35.1 H (31.0-35.0) g/dl RDW 11.1 (11.0-16.0) % Plt Count 232 D (160-400) X10*3/uL MPV 8.9 L (9.4-12.3) fL Immature Gran % (Auto) 0.0 (0.0-0.4) % Neut % (Auto) 40.7 L (45-73) % Lymph % (Auto) 48.6 H (20-40) % [place] % (Auto) 10.4 (2-11) % Eos % (Auto) 0.0 (0-4) % Baso % (Auto) 0.3 (0-2) % Lymph # (Auto) 1.7 (1.2-4.9) X10*3/uL [place] # (Auto) 0.4 (0.1-1.2) X10*3/uL Eos # (Auto) 0.0 (0.0-0.4) X10*3/uL Baso # (Auto) 0.0 (0.0-0.2) X10*3/uL Abs Immat Gran (auto) 0.00 (0.00-0.03) X10*3/uL Absolute Neuts (auto) 1.4 L (2.0-8.3) x10*3/uL Absolute Nucleated RBC 0.000 (0.0-0.012) X10*3/uL Nucleated RBC % (auto) 0.0 (0.0-0.2) /100WBC Sodium 138 (135-145) mmol/L Potassium 4.0 (3.3-5.1) mmol/L Chloride 98 (96-108) mmol/L Carbon Dioxide 30 H (22-29) mmol/L Anion Gap 14 (12-20) BUN 26 H (9-16) mg/dL Creatinine 1.08 (0.5-1.4) mg/dL Estim Creat Clear Calc 40.4 Estimated GFR 52 Random Glucose 210 H (60-115) mg/dL Calcium 9.4 (8.4-10.2) mg/dL Magnesium 2.0 (1.6-2.6) mg/dL Total Bilirubin 0.2 (0.0-1.0) mg/dL AST 20 (5-31) U/L ALT 28 (0-31) U/L Alkaline Phosphatase 73 (39-117) U/L Total Protein 7.9 (6.5-8.0) g/dL Albumin 4.1 (3.5-5.0) g/dL Lipase 26 (8-78) U/L Urine Color Yellow Urine Appearance Clear Urine pH 5.5 (5.0-9.0) Ur Specific [place] >= 1.030 H (1.005-1.025) Urine Protein Negative (Neg-Trace) mg/dL Urine Glucose (UA) >=1000 H (Negative) mg/dL Urine Ketones Negative (Negative) mg/dL Urine Blood Negative (Negative) Urine Nitrite Negative (Negative) Ur Leukocyte Esterase Trace H (Negative) Urine RBC 0-2 (0-2) /HPF Urine WBC 21-50 H (0-5) /HPF Ur Squamous Epith Cells 11-20 (0-2) /HPF Urine Bacteria 1+ (None Seen) Hyaline Casts 0-2 (0-2) /LPF Independent Interpretation I performed an independent interpretation of an: Plain X-Ray Interpretation: No acute fracture or dislocation of lumbar spine. KUB x-ray not suggestive of bowel obstruction. Revealed stool in colon. Radiology Impression Discussion of test interpretation with radiology: I have reviewed the radiologist's reading. Radiologist Impression: EXAMINATION: XR ABDOMEN KUB CLINICAL INDICATION: Constipation COMPARISON: None available. TECHNIQUE: AP view of the abdomen. FINDINGS: No dilated loops of bowel to suggest obstruction. Mild to moderate fecal loading greatest in the distal transverse, descending, and sigmoid colon. Dextrocurvature of the thoracal lumbar spine. Visualized portions of the chest are unremarkable. Soft tissues are unremarkable. XR/XR KUB IMPRESSION: 1. No dilated loops of bowel to suggest obstruction. 2. Mild to moderate fecal loading greatest in the distal transverse, descending, and sigmoid colon. EXAMINATION: XR LUMBOSACRAL SPINE CLINICAL INFORMATION: Low back pain COMPARISON: MRI lumbar spine from 11/14/2023 TECHNIQUE: Three views of the lumbosacral spine. FINDINGS: 5 nonrib-bearing lumbar-type vertebral bodies. No acute visible fracture or dislocation. Slight levocurvature of the thoracolumbar junction. Moderate multilevel degenerative changes greatest at L3-L4 and L4-L5 with disc space narrowing, endplate process, vacuum disc phenomenon, osteophyte from it, and lower lumbar spine facet arthropathy. Vertebral body heights and disc spaces are maintained. Posterior bones are intact. Paraspinal soft tissues are unremarkable. Fecal loading the visualized colon. XR/XR lumbar spine 2-3V IMPRESSION: 1. No acute visible fracture or dislocation. 2. Slight levocurvature of the thoracolumbar junction. 3. Moderate multilevel degenerative changes greatest at L3-L4 and L4-L5. Independent Historian Clinical information obtained from an independent historian. History obtained from or confirmed by: Spouse External Record Review External record reviewed: Inpatient record, Office record and Outpatient record Prescription Management I considered prescription management with: Pain Medication Chronic Conditions Patient?s care impacted by: Diabetes and Other (Acute on chronic lower back pain ) Critical Care Time Critical Care Time Critical Care Time: No Discharge Plan Discharge Clinical Impression: Sciatica, Lumbar spine strain, Constipation Patient Disposition: Home, Self-Care Instructions: Constipation (DC), Sciatica (ED) Additional Instructions: Your abdominal x-ray showed constipation. Your back x-ray showed degenerative disc changes which is similar to the MRI that you had done a month ago. Take Motrin and Tylenol as needed for your back pain. Recommend following up with the primary care doctor for further evaluation and treatment. Also recommend following up with the minimally invasive product design specialist. Call for an appointment. Recommend [id number] MiraLax, senna and Colace. You can also try magnesium citrate Or milk of magnesia If you develop new or worsening symptoms call 911 or come back to the ER for further evaluation. Prescriptions: No Action diclofenac potassium 50 mg tablet 50 mg PO BID Qty: 14 0RF duloxetine 60 mg capsule,delayed release(DR/EC) 60 mg PO DAILY Referrals: Dagoberto Miranda DO [Primary Care Provider] - Juan Carlos Meraz MD, PhD [Physician] - Interventions: ED Discharge Assessment Last Done: 12/26/23 20:36 Discharge Date/Time: 12/26/23 20:37 Print Language: Divehi
[2023-12-26 14:52] LABS: MANUAL DIFF FLAG NO
[2023-12-26 14:56] LABS: Basophils Percent Auto 0.3 % (0-2); Lymphocytes Absolute Auto 1.7 X10*3/uL (1.2-4.9); Lymphocytes Percent Auto 48.6 % (20-40); Mean Corpuscular HGB Conc 35.1 g/dl (31.0-35.0); Mean Corpuscular Hemoglobin 31.3 pg (27.0-33.0); Mean Corpuscular Volume 88.9 fL (80.0-98.0); Mean Platelet Volume 8.9 fL (9.4-12.3); Monocytes Absolute Auto 0.4 X10*3/uL (0.1-1.2); Monocytes Percent Auto 10.4 % (2-11); Neutrophils Absolute Auto 1.4 x10*3/uL (2.0-8.3); Neutrophils Percent Auto 40.7 % (45-73); Platelet Count 232 X10*3/uL (160-400); Red Blood Count 4.16 X10*6/uL (4.20-5.50); Red Cell Distribution Width 11.1 % (11.0-16.0); White Blood Count 3.5 X10*3/uL (4.8-10.8)
[2023-12-26 15:28] LABS: Alanine Aminotransferase 28 U/L (0-31); Albumin Level 4.1 g/dL (3.5-5.0); Alkaline Phosphatase 73 U/L (39-117); Anion Gap 14 (12-20); Aspartate Amino Transferase 20 U/L (5-31); Bilirubin Total 0.2 mg/dL (0.0-1.0); Blood Urea Nitrogen 26 mg/dL (9-16); Calcium 9.4 mg/dL (8.4-10.2); Carbon Dioxide 30 mmol/L (22-29); Chloride 98 mmol/L (96-108); Creatinine Clr Calc Pharmacy 40.4; Estimated Glomerular Filt Rate 52; Glucose Random 210 mg/dL (60-115); Lipase 26 U/L (8-78); Sodium 138 mmol/L (135-145); Total Protein 7.9 g/dL (6.5-8.0)
[2023-12-26 18:20] VITALS: BP 144/90; PULSE 95; RESP 16; TEMP 36.2; O2SAT 96
[2023-12-26 18:30] LABS: Appearance Urine Clear; Color Urine Yellow; Glucose Urine UA >=1000 mg/dL (Negative); Leukocyte Esterase Urine Trace (Negative); Nitrite Urine Negative (Negative); PH 5.5 (5.0-9.0); Specific Gravity - Urine >= 1.030 (1.005-1.025); UMIC TRIGGER UACC YES; Urine Blood Negative (Negative); Urine Ketones Negative (Negative); Urine Protein Negative (Neg-Trace)
[2023-12-26 18:32] LABS: Bacteria Urine 1+ (None Seen); Hyaline Casts Urine 0-2 /LPF (0-2); RBC Urine 0-2 /HPF (0-2); UACC Culture Trigger YES; WBC Urine 21-50 /HPF (0-5)
[2023-12-26] MEDS: Cyclobenzaprine HCl 10 MG TABLET PO (19:32)
[2023-12-26] MEDS: bisacodyL 10 MG SUPP.RECT PR (19:32)
[2023-12-26] MEDS: polyethylene glycoL 3350 17 GM POWD.PACK PO (19:32)
[2023-12-26 19:49] VITALS: BP 130/84; PULSE 92; RESP 16; TEMP 36.9; O2SAT 97
[2023-12-26 20:36] VITALS: BP 138/84; PULSE 92; RESP 16; TEMP 36.9; O2SAT 98
--- NOTE | 2023-12-26 20:37 | PC.NURSE ---
pt discharge by Lauren Morrison
== END 2023-12-26 20:37 | disposition home or self-care (01) ==
PROVIDERS: Physician Assistant Medical; Emergency Provider Emergency Medicine; PCP Pediatrics
DX: K59.00 Constipation, unspecified (principal); S39.012A Strain of muscle, fascia and tendon of lower back, initial encounter; X50.9XXA Other and unspecified overexertion or strenuous movements or postures, initial encounter; Y93.9 Activity, unspecified; Y92.9 Unspecified place or not applicable; Y99.9 Unspecified external cause status; M54.30 Sciatica, unspecified side; E11.9 Type 2 diabetes mellitus without complications; Z79.899 Other long term (current) drug therapy
CPT/HCPCS: 36415; 72100; 74018; 80053; 81001; 83690; 83735; 85025; 87086; 99283; 99284

== ENCOUNTER → 2024-01-02 09:30 | Outpatient (BNVA) | payer OTHER, SELFPAY | PROVIDERS: PCP Pediatrics; Visit Provider Physician Assistant ==

== ENCOUNTER 2024-01-06 09:57 | Outpatient (AMB) | payer OTHER, SELFPAY ==
--- NOTE | 2024-01-06 10:15 | A.SPINEOV_ITS ---
Intake Visit Reasons: ED follow up Intake Note: Ms. Bruner is here today for an ED F/u Recordak Operator Required: No Allergies No Known Allergies Allergy (Verified 01/02/24 09:46) Assessment & Plan Assessment & Plan (1) Degenerative disc disease, lumbar: Code(s): M51.36 - Other intervertebral disc degeneration, lumbar region Category: Medical Plan Dear colleague, Thank you for referring Davina to our office today. 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 She comes in today with a chief complaint of atraumatic low back pain with shooting pains into her bilateral legs. She denies any numbness/tingling /burning. No issues with micturition or bowel movements. She states that this has been ongoing for the last 6-7 years, but has worsened over the course of the last 1 month. When describing her radiation of pain she runs her hand down her right lateral thigh over her right knee, across the right anterior tibialis and over the top of her right foot. She states that her left lower extremity experi ences a similar radicular pain but it is waxing/waning and not nearly as bad as the right. She reports that ambulation is also quite difficult for. She is only able to walk with the assistance of a cane, and can only walk a short distance without needing to stop and rest. She has been to physical therapy past feels as though it was not helpful to mitigate her pain. She most recently has tried taking courses of Aleve, Tylenol, and tramadol without resolution of her pain. PMH: Depression. Osteoarthritis. Hepatitis C. Social hx: Patient does not smoke, reports no substance use. Medications: Duloxetine, diclofenac gel, tramadol, Aleve. Allergies: NKDA. Physical exam: The patient has 4/5 strength with left-sided EHL/dorsiflexion. The rest of her bilateral lower extremity strength is 5/5, however she does elicit pain to full strength testing of bilateral hip flexion. Hypoesthesia of left foot noted, with no other sensational changes. Reflexes completely diminished in bilateral patella. All other reflexes are 2+ intact, including Achilles. The patient ambulates with an antalgic gait favoring her right side. She rises from a seated position with the assistance of a chair. (-) Kimball's, (-) clonus, (-) bilateral straight leg raise. Imaging review: MRI of the lumbar spine completed here at [facility] shows severe degenerative disc disease at L3-4 and L4-5 with Type V degenerative modic endplate changes noted at these levels. There is severe bilateral foraminal stenosis at both of these levels. Only very mild central canal stenosis is noted. The patient does appear to have a level scoliosis that starts in the late thoracic spine on localize review of the MRI. Impression: Cele is a pleasant 58-year-old female who comes in today with severe degenerative disc disease causing bilateral foraminal stenosis and subsequent lumbar radiculopathy. Her radiation of pain is in a classic L4/L5 dermatomal distribution on the right. She does report it also affects the left foot is less severe. Interestingly her loss of strength and hypoesthesia is on the left, but her radiculopathy is worse on the right. I believe there are 2 possibilities to help alleviate the patient's symptoms. We discussed the possibility of a 2 level lumbar fusion to restore her disc height and free up space for the bilateral exiting nerve roots. She was informed that this would predominantly be to address her severe back pain and radiculopathy. Alternatively, we could do a 2 level decompression at L3-4 and L4-5, but this likely would not address her back pain. I would like to discuss this case with Dr. Meraz in clinic later this week, then we will call the patient back with an update. Thank you for allowing us to care for your patient. The total time spent with this visit with this patient was 45 minutes reviewing history, physical exam, MRI imaging review, and implementation of treatment plan or further diagnostic testing Raymond Meraz MD,PhD [facility] Coding Level of Care Code New Pt Level 4 (42561) Diagnoses Degenerative disc disease, lumbar M51.36
== END 2024-01-06 10:57 | disposition home or self-care (01) ==
PROVIDERS: PCP Pediatrics; Visit Provider Physician Assistant
DX: M51.36 Other intervertebral disc degeneration, lumbar region (principal)
CPT/HCPCS: 99204

== ENCOUNTER → 2024-01-06 09:57 | Outpatient (BNVA) | payer OTHER, SELFPAY | PROVIDERS: PCP Pediatrics; Visit Provider Physician Assistant ==

== ENCOUNTER 2024-01-24 16:24 | Emergency (ER) | payer OTHER, SELFPAY ==
--- NOTE | ~2024-01-24 | XR_ITS ---
RADIOGRAPH BILATERAL KNEES CLINICAL HISTORY: Pain, injury. COMPARISON: No relevant prior studies are available for comparison. TECHNIQUE: 4 views of each knee were obtained. FINDINGS: No acute fracture or subluxation. Mild bilateral tricompartmental degenerative osteoarthritis. No osseous erosions. No abnormal soft tissue calcifications. No joint effusion. XR/XR knee RT 4V IMPRESSION: No acute fracture or subluxation. Mild bilateral tricompartmental degenerative osteoarthritis.
--- NOTE | ~2024-01-24 | XR_ITS ---
RADIOGRAPH BILATERAL KNEES CLINICAL HISTORY: Pain, injury. COMPARISON: No relevant prior studies are available for comparison. TECHNIQUE: 4 views of each knee were obtained. FINDINGS: No acute fracture or subluxation. Mild bilateral tricompartmental degenerative osteoarthritis. No osseous erosions. No abnormal soft tissue calcifications. No joint effusion. XR/XR knee LT 4V IMPRESSION: No acute fracture or subluxation. Mild bilateral tricompartmental degenerative osteoarthritis.
--- NOTE | 2024-01-24 16:37 | ED_ITS ---
HPI - General Adult General Chief complaint: Extremity Injury, Lower Stated complaint: Fall Time Seen by Provider: 01/24/24 18:54 Source: patient Mode of arrival: wheelchair Limitations: no limitations History of Present Illness ED Provider: Fátima Lawson PA-C HPI narrative: Patient is a 58 year old assigned female at with no reported medical history presenting to the emergency department today with bilateral knee pain after a fall. Patient states that 2 days ago she fell off of a porch onto both of her knees and is having pain. Patient denies any head strike or loss of consciousness. Patient denies any dizziness, lightheadedness, abdominal pain, nausea, vomiting, fever, chills, blurry vision, double vision, loss of vision, chest pain, difficulty breathing, shortness of breath, back pain, night sweats, pain with urination, increased urinary frequency, increased urinary urgency, blood in her urine or stool, syncope or a near syncopal episode, bowel incontinence, bladder incontinence, or any other complaints at this time. Onset (ago): day(s) (2) Location: left, right and lower extremity Radiation: non-radiation Severity: mild Severity scale (1-10): 3 Quality: aching and dull Pain Consistency: constant Relieving factors: none Exacerbating factors: none Associated symptoms: denies other symptoms Treatments prior to arrival: none Related Data Home Medications ?Medication ?Instructions ?Recorded ?Confirmed duloxetine 60 mg capsule,delayed 60 mg PO DAILY 09/18/23 09/18/23 release Previous Rx's ?Medication ?Instructions ?Recorded diclofenac potassium 50 mg tablet 50 mg PO BID #14 tabs 09/15/23 Allergies Allergy/AdvReac Type Severity Reaction Status Date / Time No Known Allergies Allergy Verified 01/24/24 16:39 Review of Systems Constitutional: Constitutional: Reports no additional constitutional complaints, Denies chills, Denies fever(s) and Denies night sweats Eyes: Eyes: Reports no additional eye complaints, Denies blurry vision, Denies change in vision, Denies diplopia, Denies eye discharge, Denies loss of vision and Denies eye pain ENT: Denies dizziness Cardiovascular: Cardiovascular: Reports no additional cardiovascular complaints, Denies chest pain, Denies lightheadedness, Denies Loss of Consciousness and Denies dyspnea Respiratory: Respiratory: Reports no additional respiratory complaints and Denies dyspnea Gastrointestinal: Gastrointestinal: Reports no additional gastrointestinal complaints, Denies abdominal pain, Denies melena, Denies hematochezia, Denies change in bowel habits and Denies change in stool character Genitourinary: Genitourinary: Denies hematuria, Denies urinary frequency, Denies dysuria, Denies urinary incontinence, Denies urinary hesitancy and Denies urinary urgency Musculoskeletal: Musculoskeletal: Reports no additional musculoskeletal complaints, Denies numbness and Denies tingling Comments: bilateral knee pain Neurologic: Denies dizziness, Denies loss of vision, Denies numbness and Denies tingling Psychiatric: Psychiatric: Reports no additional psychiatric complaints Endocrine: Endocrine: Reports no additional endocrine complaints Hematologic/Lymphatic: Hematologic/Lymphatic: Reports no additional hematologic/lymphatic complaints Allergic/Immunologic: Allergic/Immunologic: Reports no additional allergic/immunologic complaints FOR[facility]LY [facility], [facility] Past Medical History Attestation statement: The following information was validated with the patient. 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 Physical Exam ED Vital Signs: Vital Signs - 24 hr 01/24/24 16:38 01/24/24 19:18 01/24/24 19:19 Temperature 97.8 F 98.6 F 98.6 F Pulse Rate 92 94 94 Respiratory Rate 20 17 17 Blood Pressure 144/78 H 142/90 H 142/90 H Pulse Oximetry 100 100 100 Oxygen Delivery Method Room Air Room Air Room Air BMI result Body Mass Index 16.0 Const General: cooperative, no acute distress, alert and awake Nutritional Appearance: well nourished Orientation/consciousness: patient oriented x3 Limitations: no limitations HENMT Head: Yes normal to inspection and Yes atraumatic Ears: hearing grossly normal bilaterally and external ears normal General nose exam: Normal external nose present, no nasal discharge noted and no epistaxis Face and sinus: Yes normal facial exam, No abrasion and No laceration Mouth: Normal oral and palatal mucosa present, no drooling and no muffled voice Eyes General: appearance normal, both eyes and all related structures Periorbital: periorbital findings normal Eyelids: Yes eyelids normal Conjunctivae: conjunctivae normal Pupils: Equal, round and reactive pupils present EOM: EOMs intact bilaterally Neck Neck: Yes normal visual inspection, Yes full ROM and Yes no lymphadenopathy Chest Chest palpation & inspection: normal inspection of the chest Resp Effort & Inspection: normal respiratory effort and able to speak in complete sentences GI Inspection: Yes normal to inspection Neuro General: patient oriented x3 and moves all extremities Cranial nerves: Yes Equal, round and reactive pupils present Cognition (Neuro): normal cognition Motor exam (neuro): 5/5 motor strength present throughout Sensory Exam: Normal double simultaneous stimulation for sensation Coordination: [id number] test normal Extrem General: Yes normal to inspection, Yes full ROM and Yes capillary refill normal Psych Appearance: grossly normal Mental Status: mental status grossly normal Affect: normal affect Attitude: cooperative Thought process: Normal thought process present Thought content: Normal thought content present Insight: Good insight present (Psych) Course Course Course Narrative: RME performed by Fátima Lawson PA-C. Patient is a 58 year old assigned female at presenting to the emergency department with bilateral knee pain. Patient states she fell off a country porch and landed on her knees. Patient denies any head strike or loss of consciousness. Detailed physical exam and review of systems are deferred to the summer law associate. Imaging ordered. Patient placed back in the waiting room pending room availability and results. Medications Administered Discontinued Medications Generic Name Dose Route Start Last Admin Trade Name Freq PRN Reason Stop Dose Admin Oxycodone HCl 10 mg 01/24/24 19:05 01/24/24 19:14 Oxycodone Hcl Immed Release 5 Mg Tablet PO 01/24/24 19:06 10 mg ONCE ONE Administration Medical Decision Making Medical Decision Making MDM Narrative: Patient is a 58 year old assigned female at with no reported medical history presenting to the emergency department today with bilateral knee pain. Patient's physical exam was unremarkable. Patient was able to ambulate without incident. Patient's left and right knee x-rays showed no acute process. I explained my physical exam findings as well as all test results to the patient. I answered all questions asked by the patient. I stressed the importance of the patient taking her medication as prescribed. I stressed the importance of the patient following up with her primary care provider. I stressed the importance of the patient returning to the emergency department immediately if her symptoms were to worsen or if she were to develop any dizziness, shortness of breath, difficulty breathing, chest pain, blurry vision, loss of vision, nausea, vomiting, abdominal pain, fever, chills, back pain, or any other complaints. Patient verbalized agreement and understanding with this treatment plan and discharge. Differential Diagnosis Differential Diagnoses: The differential diagnosis associated with the presentation includes Knee pain Knee fracture Knee strain Contusion Admission/Observation Consideration of admission/observation: Escalation of care including admission/observation considered Patient would have been admitted to the hospital had her work up had any findings where hospital admission was appropriate and her clinical presentation warranted hospital admission. Independent Interpretation I performed an independent interpretation of an: Plain X-Ray Interpretation: My interpretation is in agreement with the radiologist's impression of these imaging studies. RADIOGRAPH BILATERAL KNEES CLINICAL HISTORY: Pain, injury. COMPARISON: No relevant prior studies are available for comparison. TECHNIQUE: 4 views of each knee were obtained. FINDINGS: No acute fracture or subluxation. Mild bilateral tricompartmental degenerative osteoarthritis. No osseous erosions. No abnormal soft tissue calcifications. No joint effusion. XR/XR knee RT 4V IMPRESSION: No acute fracture or subluxation. Mild bilateral tricompartmental degenerative osteoarthritis. Dictated By: Dianna Gonzalez Signed By: Electronically signed by Dianna Gonzalez 01/24/24 3507 Radiology Impression Discussion of test interpretation with radiology: I have reviewed the radiologist's reading. Discharge Plan Discharge Clinical Impression: Fall, Acute pain of both knees Patient Disposition: Home, Self-Care Instructions: Fall Prevention for Older Adults (ED), Knee Pain (ED) Additional Instructions: Follow up with your primary care provider. Return to the emergency department immediately if your symptoms worsen or if you develop any dizziness, shortness of breath, difficulty breathing, chest pain, blurry vision, loss of vision, nausea, vomiting, abdominal pain, fever, chills, back pain, or any other complaints. Prescriptions: No Action diclofenac potassium 50 mg tablet 50 mg PO BID Qty: 14 0RF duloxetine 60 mg capsule,delayed release(DR/EC) 60 mg PO DAILY Referrals: Dagoberto Miranda DO [Primary Care Provider] - Interventions: ED Discharge Assessment Last Done: 01/24/24 19:19 Discharge Date/Time: 01/24/24 19:20 Print Language: Tajik
[2024-01-24 16:38] VITALS: BP 144/78; PULSE 92; RESP 20; TEMP 36.6; O2SAT 100; BMI 16.0
[2024-01-24] MEDS: oxyCODONE HCl Immed Release 5 MG TABLET 10 MG PO (19:14)
[2024-01-24 19:18] VITALS: BP 142/90; PULSE 94; RESP 17; TEMP 37; O2SAT 100
[2024-01-24 19:19] VITALS: BP 142/90; PULSE 94; RESP 17; TEMP 37; O2SAT 100
== END 2024-01-24 19:20 | disposition home or self-care (01) ==
PROVIDERS: Emergency Provider Emergency Medicine; PCP Pediatrics
DX: M25.561 Pain in right knee (principal); M25.562 Pain in left knee; Z79.899 Other long term (current) drug therapy
CPT/HCPCS: 73564; 99283; 99284

== ENCOUNTER 2024-02-05 09:03 | Outpatient (AMB) | payer OTHER, SELFPAY ==
--- NOTE | 2024-02-05 09:09 | A.OFFVIS_ITS ---
Vital Signs 02/05/24 09:10 Height 5 ft 5 in Weight 100 lb BMI 16.6 Intake Visit Reasons: OV - MRI review of the Lumbar spine Intake Note: Cele is a 58 year old female who presents today for a MRI review of the Lumbar spine. Patient reports she is in a lot of pain and is finding no relief with Tylenol or Advil. She has not returned back to work due to her pain. Allergies No Known Allergies Allergy (Verified 02/05/24 09:12) Medication List - Last Reconciled 02/05/24 by Marie Cowan MD diclofenac potassium 50 mg PO BID duloxetine 60 mg PO DAILY HPI Comments Details: 09/18/23 - Been having lower back pain and leg pain, 3 weeks. Denies falls or accidents prior. 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 New onset constant left back pain, radiates goes to left groin, knee and you. Sometimes numbness on bottom of left foot. Pain with walking, left knee feels like it will give way. No incontinence. Been constipated. No urination issues. Had similar incident, 12 years ago, treated with PT, got better after. Treatment done so far: NSAIDs, duloxetin chronically for depression but found it helps with pain therapy - finished (She tells me today she has not had PT for years) We obtained MRI done 11/13. Attempted to call patient but usually no answer. Patient has no showed to appointments since then. Looks like she did see Neurospine 01/06/24 - offered her a L3-4, L4-5 transkambin lumbar fusion to address her low back pain and shooting radicular pains. After some discussion Cele would like to proceed with surgery . Had gone to ED 01/26 after fall and for knee pain. She tells me that she has not scheduled the surgery yet. She wants to get PT first because she does not think she's in shape for such surgery. Continues to have back pain, goes down both legs, knees, and feet. Numbness on both feet and you. No new bladder/bowel changes. Does not work at [employer] anymore. 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 Sometimes she has to lift mom which aggravates for surgery. Takes flexeril, alleve. Takes aspirin also as needed, says works faster. 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 Patient was appropriately conversant and oriented. Good historian. MSK: No specific abnormalities found on inspection of the spine and all extremities. Tender lumbar paraspinals and SI joints bilateral. No tenderness over spinous processes. Lumbar ROM was full. Bilateral hip, knee and ankle ROM WNL. No ligamentous laxity or crepitance. No increased effusion. Straight-leg raising test negative. FABERE test negative. Give-way weakness left dorsiflexion. Neurological: Question left footdrop. Depressed reflexes bilateral patellar. Kimball?s negative bilaterally. Babinski was down going bilaterally. Clonus was negative. Gait is antalgic without loss of balance. Results Reviewed Results Reviewed: Ordering Physician: Marie Guzmán Date of Service: 11/14/23 Procedure(s): MR lumbar spine wo con Accession Number(s): [id number] cc: Dagoberto Miranda DO; Marie Guzmán~ EXAMINATION: MR LUMBAR SPINE WITHOUT CONTRAST CLINICAL INFORMATION: Radiculopathy COMPARISON: Outside MRI lumbar spine 11/14/2018 TECHNIQUE: MRI of the lumbar spine was obtained using routine sequences without contrast. FINDINGS: Motion degraded examination Normal anatomic alignment. No suspicious marrow signal or focal osseous lesion. The vertebral body heights are maintained. Disc desiccation and height loss at L3-L4 and L4-L5 where there are degenerative endplate contour changes and mixed type I and type II endplate marrow signal changes. The conus medullaris terminates at the level of T12-L1. The distal spinal cord is normal in appearance. The cauda equina nerve roots appear normal. No significant abnormalities of the paraspinal musculature. Limited evaluation of the intra-abdominal structures without significant abnormalities. The abdominal aorta is of normal contour and caliber. SPINAL LEVELS: L1-L2: No significant spinal canal or neuroforaminal narrowing. L2-L3: Shallow broad-based disc bulge. Stable mild bilateral neural foraminal narrowing. L3-L4: Disc osteophyte complex, facet arthropathy. No significant central spinal canal stenosis. Stable subarticular zone narrowing with compression of the traversing L4 nerve roots and moderate right and severe left neural foraminal narrowing with impingement of the exiting L3 nerve roots. L4-L5: Disc osteophyte complex, facet arthropathy. No significant central spinal canal stenosis. Stable subarticular zone narrowing with mass effect on the traversing L5 nerve roots and severe right and moderate left neural foraminal narrowing with impingement of the exiting L4 nerve roots. L5-S1: No significant spinal canal or neuroforaminal narrowing. Shallow central disc protrusion and facet arthropathy. MR/MR lumbar spine wo con IMPRESSION: Motion degraded examination. Multilevel lumbar spondylosis has not significantly progressed compared to MRI from 11/14/2018, most notable at L3-L4 and L4-L5 where there is bilateral subarticular zone narrowing with mass effect on the traversing L4 and L5 nerve roots and moderate to severe bilateral neural foraminal narrowing with impingement of the exiting L3 and L4 nerve roots. Reviewed notes from Neurosurgery. Assessment & Plan Assessment & Plan (1) Degenerative disc disease, lumbar: Code(s): M51.36 - Other intervertebral disc degeneration, lumbar region Category: Medical (2) Lumbar radiculopathy: Code(s): M54.16 - Radiculopathy, lumbar region Category: Medical (3) Left foot drop: Code(s): M21.372 - Foot drop, left foot Category: Medical Plan Appears more weak now, especially left foot dorsiflexion, since I first saw her in September. [facility] has offered surgery but patient is afraid. She would like to trial PT first, which I will order. I will ask PT to evaluate need for left AFO. I did encourage her to call [facility] meg to schedule the surgery as I believe it would prevent further weakness. She is emotional about this but says she will think about it. She was also advised against taking Alleve with ASA together, discussed side effects and complications. Advised against lifting her mom at home, fall prevention. Assessment and plan discussed with patient, and patient was agreeable. All questions were answered thoroughly. Marie Cowan MD, AMY Board Certified, [place] Board [employer] and Rehabilitation (ABPMR) Board Certified, [place] Board [employer] Electrodiagnostic [employer] (ABEM) Orders: Orders PT Evaluation and Treatment Today M21.372 - Foot drop, left foot, M51.36 - Other intervertebral disc degeneration, lumbar region, M54.16 - Radiculopathy, lumbar region Coding Level of Care Code Est Pt Level 4 (67865) Diagnoses Degenerative disc disease, lumbar M51.36 Lumbar radiculopathy M54.16 Left foot drop M21.372
[2024-02-05 09:10] VITALS: BMI 16.6
== END 2024-02-05 09:28 | disposition home or self-care (01) ==
PROVIDERS: PCP Pediatrics; Visit Provider Physical Medicine & Rehabilitation
DX: M51.36 Other intervertebral disc degeneration, lumbar region (principal); M54.16 Radiculopathy, lumbar region; M21.372 Foot drop, left foot
CPT/HCPCS: 99213

== ENCOUNTER → 2024-02-05 09:03 | Outpatient (BNVA) | payer OTHER, SELFPAY | PROVIDERS: PCP Pediatrics; Visit Provider Physical Medicine & Rehabilitation ==

== ENCOUNTER 2024-03-02 08:30 | Outpatient (REF) | payer OTHER, SELFPAY | END 2024-03-02 08:31 | disposition home or self-care (01) | LOC: HO.HOSX 08:30 | PROVIDERS: Visit Provider Physician Assistant | DX: Z13.89 Encounter for screening for other disorder (principal) ==

== ENCOUNTER 2024-05-12 | Outpatient (REF) | payer OTHER, SELFPAY ==
--- NOTE | 2024-05-12 | ECG_ITS ---
Test Reason : Pre OP Blood Pressure : / mmHG Vent. Rate : 076 BPM Atrial Rate : 076 BPM P-R Int : 172 ms QRS Dur : 074 ms QT Int : 396 ms P-R-T Axes : 008 038 048 degrees QTc Int : 445 ms Normal sinus rhythm Low voltage QRS Borderline ECG When compared with ECG of 27-DEC-2021 11:37, No significant change was found Referred By: Anny Estrada Electronically Signed By:MELQUIADES RUSS MD
[2024-05-12 10:35] VITALS: BP 114/64; PULSE 87; RESP 16; O2SAT 99; BMI 18.8
--- NOTE | 2024-05-12 10:47 | HO.ANESPROP2 ---
HPI - Anesthesia Eval Consult details Narrative: 58yo F for L3-4,L4-5 Transkambin Lumbar Interbody Fusion, 05/26/24 No recent illness No CP/SOB with limited activity - left ankle instability (no clear injury or hx of surgery) DM: FBS ~ 80-120 GERD: pepto rare Hep C s/p treatment completed couple years ago Pt declines blood transfusion r/t personal beliefs PMFSH Active Problems Active Problems: All Active Problems Left foot drop (Acute) Degenerative disc disease, lumbar (Acute) Degeneration of lumbar intervertebral disc with acute herniation (Acute) Acute cervical radiculopathy (Acute) Lumbar radiculopathy (Acute) Past Medical History Medical History (Updated 05/12/24 @ 10:23 by Pamela Sage RN) History of trigger finger GERD (gastroesophageal reflux disease) Anxiety Numbness Neuropathy Diabetes Lumbar radiculopathy Hepatitis C Arthritis DJD (degenerative joint disease) Family History Family history of problems with anesthesia: No Surgical History Surgical History (Updated 05/12/24 @ 10:23 by Pamela Sage RN) Hx of oral surgery History of carpal tunnel release of both wrists History of surgical removal of pilonidal cyst H/O colonoscopy History of Problems with Anesthesia: No Social History Social History Are you a primary physician primary care sports medicine to a significant other at home: No Do you presently have visiting nurse or other home services: No Alcohol intake: current Alcohol intake frequency: 0-2 drinks per day Patient Tobacco Use Status: Current everyday Tobacco user Tobacco use type: Cigarette Cigarettes Per Day: 4 Current occupational status: employed 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 Med Allergies Allergy/AdvReac Type Severity Reaction Status Date / Time No Known Allergies Allergy Verified 02/05/24 09:12 Home Medications ?Medication ?Instructions ?Recorded ?Confirmed ?Last Taken ?Type duloxetine 60 mg capsule,delayed 60 mg PO DAILY 09/18/23 05/12/24 Unknown History release aspirin 81 mg tablet,delayed 81 mg PO 2XW 05/12/24 05/12/24 Unknown History release bismuth subsalicylate 525 mg/15 mL 525 mg PO DAILY PRN Acid Reflux 05/12/24 05/12/24 Unknown History oral suspension calcium carb-D3-mag ox-zinc ox 1 tab PO DAILY 05/12/24 05/12/24 Unknown History clonazepam 0.5 mg tablet 0.5 mg PO DAILY PRN Anxiety 05/12/24 05/12/24 Unknown History diclofenac sodium 75 mg 75 mg PO BID PRN Pain 05/12/24 05/12/24 Unknown History tablet,delayed release insulin glargine 100 unit/mL (3 20 unit subcut QAM 05/12/24 05/12/24 Unknown History mL) subcutaneous pen multivitamin 1 tab PO DAILY 05/12/24 05/12/24 Unknown History oxycodone-acetaminophen 5 mg-325 1 tab PO Q4-6H PRN Pain 05/12/24 05/12/24 Unknown History mg tablet (Percocet) turmeric 400 mg capsule 400 mg PO DAILY 05/12/24 05/12/24 Unknown History Exam Height,Weight and Vital Signs: Height 5 ft 5 in Weight 51.256 kg Last Vital Signs Pulse 87 05/12/24 10:35 Resp 16 05/12/24 10:35 BP 114/64 05/12/24 10:35 Pulse Ox 99 05/12/24 10:35 O2 Del Method Room Air 05/12/24 10:35 Pertinent Lab Results Pertinent Lab Results: Laboratory Tests 12/26/23 14:46 WBC 3.5 L Hgb 13.0 Hct 37.0 Plt Count 232 D Sodium 138 Potassium 4.0 Chloride 98 Carbon Dioxide 30 H BUN 26 H Creatinine 1.08 Narrative Narrative: EKG 05/2024 Vent. Rate : 076 BPM Atrial Rate : 076 BPM P-R Int : 172 ms QRS Dur : 074 ms QT Int : 396 ms P-R-T Axes : 008 038 048 degrees QTc Int : 445 ms Normal sinus rhythm Low voltage QRS Borderline ECG When compared with ECG of 27-DEC-2021 11:37, No significant change was found Airway Mallampati Class: I TM Dist: >3cm Neck ROM: Full Denture: Upper Partial: Lower Heart: RRR Lungs: CTAB Assessment and Plan Assessment Anesthesia Assessment: Anesthesia Plan Discussed and PAT Visit Final Anesthetic Review Family History of Problems with Anesthesia: No History of Problems with Anesthesia: No
== END 2024-05-12 00:01 ==
LOC: HO.PAT
PROVIDERS: PCP Pediatrics; Visit Provider Neurological Surgery
DX: Z01.812 Encounter for preprocedural laboratory examination (principal); M51.360 Other intervertebral disc degeneration, lumbar region with discogenic back pain only
CPT/HCPCS: 93005

== ENCOUNTER → 2024-05-12 11:20 | Outpatient (BNV) | payer OTHER, SELFPAY | PROVIDERS: Admitting Provider Neurological Surgery; PCP Pediatrics; Visit Provider Internal Medicine Cardiovascular Disease | DX: R94.31 Abnormal electrocardiogram [ECG] [EKG] (principal); Z01.810 Encounter for preprocedural cardiovascular examination | CPT/HCPCS: 93010 ==

== ENCOUNTER 2025-04-02 14:08 | Outpatient (AMB) | payer MEDICAID, SELFPAY ==
--- OUTSIDE RECORDS SUMMARY | 2025-03-31 14:15 | XMS_ITS | Encounter Summary ---
Author Organization [facility] Address [address] [place] [address] Phone Care Team Providers Care Burrer Machine Name Role Phone Dagoberto Miranda DO Primary Care Provider Reason for Visit * Physical Therapy (Within 2 weeks) - Authorized Specialty Diagnoses / Procedures Referred By Contac t Referred To Contact Physical Therapy Diagnoses Lumbar herniated disc Nadege Li CNP [address] [place] [address] Phone: tel: fax: [email or web address] [facility] [address] [place] [address] Phone: tel: Referral ID Status Reason Start Date Expiration Date V isits Requested Visits Authorized [id number] Authorized 01/20/2025 05/27/2025 20 20 Encounter Details Date Type Department Care Team (Late st Contact Info) Description 03/31/2025 2:15 PM EDT Office Visit [facility] [address] [place] [address] Nadege Li, COLIN [address] [place] [address] Mehnaz Wall, PT [address] [place] [address] Chronic bilateral low back pain with bilateral sciatica (Primary Dx); Foot drop, left Social History Tobacco Use Types Packs/Day Years Used Date Smoking Tobacco: Every Day Cigarettes 0.5 45 Smokeless Tobacco: Never Alcohol Use Standard Drinks/Week Comments Yes 14 (1 standard drink = 0.6 oz pu re alcohol) Education Answer Date Recorded Are you interested in more education? Not on quique e 11/30/2022 Are you concerned about learning? Not on file 11/30/2022 No 11/30/2022 No 11/30/2022 Digital Access Answer Date Recorded No 12/29/2022 No 12/29/2022 Reliable internet access at home? Not on file 12/29/2022 Device with a working camera? Not on file Intimate Partner Violence Answer Date R ecorded Are you denied basic needs s uch as food, clothing, or medical care? No 03/13/2024 In the past 12 months have y ou been in a relationship with a person who hurts, threatens, or tries to control you? No 03/13/2024 Are you denied basic needs s uch as food, clothing, or medical care? No 03/13/2024 In the past 12 months have y ou been in a relationship with a person who hurts, threatens, or tries to control you? No 03/13/2024 Comments No Sex and Gender Information Value Date Recorded Sex Assigned at Female 08/12/2017 9:38 AM EST Legal Sex Female 9:43 PM EDT Gender Identity Female 09/30/2017 4:37 PM EST Sexual Orientation Straight 09/09/2018 11 :57 AM EST documented as of this encounter Progress Notes * Mehnaz Wall, PT - 03/31/2025 2:15 PM EDT Physical Therapy Treatment Note Patient Name: Cele Bruner Date of : 1965 This patient has attended 6 visits since the onset Physical Therapy. Referring MD: Nadege Li, COP WINDER [address] [place] [address] Chronic bilateral low back pain with bilateral sciatica [M54.42, M54.41, G89.29] Subjective: I have a lot of tension in my back. I am going camping this weekend. Patient reports that she does own an inversion table but tends not to use it. LB tension 5/10. MRI L-spine 2019: 1. Degenerative changes at L3-L4 and L4-L5 have mildly progressed from 2018. Moderate/severe neuroforaminal stenosis on the left at L3-L4 and on the right at L4-L5. No significant canal stenosis of the lumbar spine. 2. Abnormal signal in the endplates of L3-L4 and L4-L5 have progressed from 2018 and are likely degenerative in nature Date of Surgery: none Precautions: none Pertinent Medical History and Co-morbidities: DM insulin injections Functional Limitations: I cannot go shopping. 2. Some days I cannot get out of bed. 3. Limited standing for 30 min. 4. Limited walking (only 100 ft unless medicated). 5. Sitting can produce back pain. Previous Functional Level: Lives with her in 2 story home. 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 I like to shop and garden but it is hard on my back. I have fallen 10x in the past year, the L foot will turn inward on me. Reports sometimes she will use a cane. Pain? yes Pain Comments: Intermittent LBP, constant LE symptoms anteriorly to feet/ankles, spasms in feet, 5-9/10 Easing factors: changing position, percocet 10 mg, cyclobenzaprine, diclofenac Aggravating factors: walking, standing, sitting Interventions: See encounter report for minutes associated with each intervention. Indicates done today:[x] Indicates not done today:[] Interventions Min. Parameters MANUAL THERAPY 30 [x]Manual lumbar traction supine 90/90 with LEs up on stool using harness/straps and mobilization belt x 30 min followed by 5 min resting in this position at the conclusion of traction THERAPEUTIC EXERCISE [x]Recommended holding on HEP today and doing some unloading, walking, limiting long stretches of sitting today []Seated ankle DF L AROM (fatigues) []Seated ankle isometric eversion L (fatigues) []Isometric L ankle DF and eversion x 10 reps with PT resistance []gastroc stretch at counter 3 reps x 30 sec []Marching on heels x 10 reps []Bridge on heels x 10 reps (bridges partially) []Hooklying TrA bracing with leg extension x 10 reps []Bridge with legs extended on half foam roller x 10 reps []Holding 90/90 TrA bracing 3 reps x 15 sec hold THERAPEUTIC ACTIVITIES NEURO RE-EDUCATION []Yarsani pew sway []3/4 tandem stance in corner added in head turns, mildly unsteady with L foot in rear position with head turn L []Heel raises with 3 sec hold at counter (unable to actively DF to lift L forefoot standing) []Leaning back on wall, use feet/ankles to come forward off the wall x 10 reps []Tandem stance in corner L foot in rear position (challenged moving the R foot in and out of position w/o touching the wall) []seated BAPS board L3 for L ankle DF/PF, INV/EVER, CW/CCW (patient has hard time with eversion component) Home Exercise Program: Access Code: [email or web address] URL: [email or web address] Date: 03/24/2025 Prepared by: Mehnaz Wall Exercises - Seated Ankle Dorsiflexion AROM - 2 x daily - 7 x weekly - 3 sets - 10 reps - Isometric Ankle Eversion at Wall - 2 x daily - 7 x weekly - 1 sets - 10 reps - 5 sec hold - Yarsani Pew - 2 x daily - 7 x weekly - 1 sets - 10 reps - Standing Romberg to 3/4 Tandem Stance - 2 x daily - 7 x weekly - 1 sets - 3 reps - 15-30 sec hold - Heel Raises with Counter Support - 1 x daily - 7 x weekly - 1 sets - 10 reps - 3 sec hold - Supine March - 1 x daily - 7 x weekly - 1 sets - 10 reps ON HEELS - Bridge on Heels - 1 x daily - 7 x weekly - 1 sets - 10 reps - Standing Gastroc Stretch at Counter - 1 x daily - 7 x weekly - 1 sets - 3 reps - 30 sec hold Patient Education - Lifting Techniques - Household Activities Assessment: Patient referred to PT with lumbar radiculopathy with patient reporting fall hx 10+ times due to L foot and ankle weakness, B/L pain in legs worse than the back. Clinical findings include; L foot/ankle weakness ankle DF/eversion/EHL with drop foot in gait, weakness L hip and HS not as severe as foot/ankle, DTRs only intact is diminished L4, reports minimal sensation in the bottom of feet but also with DM so some of this could be neuropathy, lumbar AROM full. MRI findings; T11-T12: Disc bulge and facet hypertrophy. Mild spinal canal stenosis. Moderate foraminal stenosis. T12-L1: Facet arthropathy. No spinal or foraminal stenosis. L1-L2: Minimal disc bulging and facet arthropathy. No significant spinal canal stenosis. Moderate bilateral foraminal stenosis. L2-L3: Disc bulge and facet joint arthropathy. Ligamentum flavum thickening. No significant spinal canal stenosis. Moderate foraminal stenosis. L3-L4: Disc/osteophyte complex. Facet joint hypertrophy and ligamentum flavum thickening. Mild spinal canal stenosis. Severe left greater than right foraminal stenosis. L4-L5: Disc osteophyte complex. Facet hypertrophy and ligamentum flavum thickening. Mild spinal canal stenosis. Severe bilateral foraminal stenosis. L5-S1: Disc bulge with possible small central disc protrusion. Facet joint arthropathy. No high-grade spinal canal stenosis. Moderate bilateral foraminal stenosis. Patient reports her insurance is all set and she will be seeing a CERTIFIED APPLIANCE SERVICE TECHNICIAN on Saturday at Dr. Meraz office. She reports that she has not had any falls. Her foot/ankle function appears to me to be unchanged based on gait. Provided manual traction today for relief of tension in her back /10, reduced to /10. Held off on exercise today to allow patient some recovery time due to increased discomfort compared to other visits. Plan: Therapeutic Exercise (strengthening), NM Re-education (balance, gait, possible AFO), Manual Therapy, Therapeutic Activities (body mechanics), Self Care/HEP Mehnaz Wall PT [id number] documented in this encounter Plan of Treatment Upcoming Encounters Date Type Department Care Team (Late st Contact Info) Description 04/07/2025 2:15 PM EDT Office Visit [facility] [address] [place] [id number] Nadege Li, COP WINDER [address] [facility] [place] [address] Mehnaz Wall PT [address] [place] [address] 04/14/2025 9:45 AM EDT Office Visit [facility] [address] [place] [address] Nadege Li, COP WINDER [address] [facility], [address] [place] [address] Mehnaz Wall, PT [address] [place] [address] 08/06/2025 1:30 PM EST Office Visit [facility] [address] [place] [address] [place] [address] Dagoberto Miranda DO [address] [place] [id number] documented as of this encounter Visit Diagnoses Diagnosis Chronic bilateral low back pain with bilateral sciatica- Primary Foot drop, left Other acquired deformity of ankle and foot documented in this encounter Additional Health Concerns Assessment Noted Time PHQ-2 Depression Total Score: 2 10/08/19 24 8:07 AM EST documented as of this encounter Care Teams Burrer Machine Relationship Specialty Start Date End Date Dagoberto Miranda DO [address] [place] [id number] PCP - General Internal Medicine 04/29/23 documented as of this encounter Additional Source Comments The information contained in this document represents components of the legal health record. It is not the complete legal health record.[facility]
--- OUTSIDE RECORDS SUMMARY | 2025-04-02 14:12 | XMS_ITS | Clinical Summary ---
Author Organization [facility] Address [address] [place] [address] Phone Care Team Providers Care Medical Lab Tech Instructor Name Role Phone Miranda, Dagobertobryna Castillow Primary Care Provider Allergies No known active allergies Medications therapeutic multivitamin tablet Take 1 tablet by mouth daily. Active calcium-magnesiu m-zinc Tab Take by mouth. Acti ve turmeric 400 mg Cap Take by mouth. Activ e polyethylene glycol (MIRALAX) 17 gram/dose powder Take 17 g by mouth daily. 595 g 1 024 Active docusate sodium (COLACE) 100 MG capsule Take 1 capsule (100 mg total) by mouth 2 (two) times a day. 60 capsule 1 024 Active Additional Information Patient not taking.Reported on 12/03/2024 lancets 28 gauge Misc 1 each by Miscellaneous route as needed. 90 each 3 024 Active blood-glucose meter,continuous (DEXCOM G6 MARKET RESEARCH ANALYST) Misc Replace every 360 days for blood sugar monitoring in diabetes. 1 each 024 Active Additional Information Patient not taking.Reported on 12/03/2024 blood-glucose transmitter (DEXCOM G6 TRANSMITTER) Kerry Replace every 90 days for blood sugar monitoring in diabetes. 1 each 3 024 Active RED BEET ROOT-SOUR VELEZ EXT ORAL Take by mouth. Activ e biotin, bulk, 100 % Powd by Miscellaneous route. Active ascorbic acid, vitamin C, (VITAMIN C) 250 MG tablet Take 250 mg by mouth daily. Active capsaicin (CAPZASIN-HP) 0.1 % Crea Apply topically 3 (three) times a day. 56.6 g 1 024 Active Additional Information Patient not taking.Reported on 12/03/2024 aspirin buffered 325 mg Tab tablet Take 325 mg by mouth daily. As needed Active insulin glargine 100 unit/mL (3 mL) InPn injection penIndications:T ype 1 diabetes mellitus with hyperglycemia Inject 30 Units under the skin daily. 18 mL 3 025 Active blood sugar diagnostic Strp stripsIndication s:Type 1 diabetes mellitus with hyperglycemia 1 each by Miscellaneous route 3 (three) times a day before meals. Contour Next EZ 100 strip 3 025 Active blood-glucose sensor (3 Four 5 Group G6 SENSOR) Kerry Replace every 10 days for blood sugar monitoring in diabetes. 5 each 3 025 Active blood-glucose meter kit Use as instructed for glucose testing. DM Type 1, on insulin. 1 each 025 Active blood sugar diagnostic Strp strips 1 each by Miscellaneous route 4 (four) times a day before meals and nightly. DM Type 1, on insulin. 400 strip 3 025 Active cyclobenzaprine (FLEXERIL) 10 MG tabletIndication s:Chronic bilateral low back pain with right-sided sciatica Take 1 tablet (10 mg total) by mouth 3 (three) times a day as needed (muscle spasm). 90 tablet 3 025 Active clonazePAM (KLONOPIN) 0.5 MG tabletIndication s:Anxiety state Take 1 tablet (0.5 mg total) by mouth 2 (two) times a day as needed for anxiety. 60 tablet 025 Active DULoxetine (CYMBALTA) 60 MG capsule TAKE 1 CAPSULE BY MOUTH DAILY 90 capsule 3 025 Active ULTICARE PEN NEEDLE 32 gauge x 1/4 Ndle USE ONCE DAILY WITH INSULIN 100 each 3 025 Active diclofenac sodium (VOLTAREN) 75 MG EC tabletIndication s:Chronic bilateral low back pain with right-sided sciatica Take 1 tablet (75 mg total) by mouth 2 (two) times a day. 60 tablet 2 025 Active oxyCODONE-acetam inophen (PERCOCET) 10-325 mg per tablet Take 1 tablet by mouth every 4 (four) hours as needed for pain (specific location in comments). Partial fill ok 60 tablet 025 Active insulin pen needles, disposable, 32 gauge x 1/4 Ndle 1 each by Miscellaneous route daily. 100 each 3 024 2024 Discontinued DULoxetine (CYMBALTA) 60 MG capsule Take 1 capsule (60 mg total) by mouth daily. 90 capsule 3 024 2024 Discontinued diclofenac sodium (VOLTAREN) 75 MG EC tabletIndication s:Chronic bilateral low back pain with right-sided sciatica Take 1 tablet (75 mg total) by mouth 2 (two) times a day. 60 tablet 2 025 2024 Discontinued(R eorder) oxyCODONE-acetam inophen (PERCOCET) 10-325 mg per tablet Take 1 tablet by mouth every 4 (four) hours as needed for pain (specific location in comments). Partial fill ok 60 tablet 025 2024 Discontinued(R eorder) oxyCODONE-acetam inophen (PERCOCET) 10-325 mg per tablet Take 1 tablet by mouth every 4 (four) hours as needed for pain (specific location in comments). Partial fill ok 60 tablet 025 2024 Discontinued(R eorder) Active Problems Problem Noted Date Diagnosed Date Right ovarian cyst 03/17/2024 Overview (03/17/2024): October 2023: 4.8 x 1.3 x 3 cm on the right, suspected to be hydrosalpinx She has recall of a similar diagnosis from a scan greater than 10 years ago, records not found Has some relatively mild cramping sensations on a daily basis on the right Assessment & Plan (03/17/2024 10:42 AM EDT): Discussed the diagnosis of suspected hydrosalpinx, the role of repeat ultrasound now as well as tumor markers. If tumor marker is elevated, would refer to [facility] for removal Ms villa is considering surgical removal even if this is unchanged and the tumor markers are normal, as she is bothered by this discomfort. I discussed that surgery can have risk of infection bleeding pain injury to internal organs, we do laparoscopically and I would encourage a BSO with possible removal of the right ovary if it is difficult to separate from hydrosalpinx, or if the cyst is arising from the ovary. She would like to wait for the results of the ultrasound the tumor markers before deciding Abnormal drug screen 03/07/2024 Assessment & Plan (03/07/2024 2:23 PM EDT): On controlled substances due to back pain and chronic anxiety, cannot be using nonprescribed illicit substances (cocaine) and obtain controlled substances for prescription. Will repeat drug screening. Type 1 diabetes mellitus without complication Assessment & Plan (02/05/2025 1:12 PM EDT): Stable well-controlled on current medication, continue monitoring. No change at this time. Assessment & Plan (08/30/2024 1:16 PM EST): Stable and well-controlled per patient-continue monitoring. Repeat labs before next visit. Assessment & Plan (05/03/2024 2:18 PM EDT): Should continue monitoring blood sugars and adjust further down or back up based on target ranges as discussed. Increased pain in back may also cause increase in sugar due to steroid response to pain. Assessment & Plan (03/07/2024 2:18 PM EDT): Continue working on blood sugar control, CGM ordered for better tracking of blood sugar throughout the day. Went over use of device. Assessment & Plan (01/07/2024 3:31 PM EDT): Recheck labs, monitor but no change to meds currently. Assessment & Plan (11/28/2023 11:11 PM EDT): Improving control however still running above goal range with wide variation from 80-300. Recheck labs in 6 weeks, follow-up with diabetic clinic as scheduled. Assessment & Plan (11/13/2023 10:32 PM EDT): Recent lab results reviewed, discussed with Karen She has type 1 diabetes based on ab positivity, she had preserved insulin production for now and is likely to require less insulin for a period of time which may last months to years, honeymoon phase We discussed the very strong likelihood of progression to MDI as mealtime insulin requirement emerges with reduced endogenous insulin production We discussed taking basal insulin once daily at current TDD dose which Karen is splitting bid We also discussed lowering this dosage by 25% as she begins once daily dosing given the much lower readings today, this likely represents the beginning of the honeymoon phase and reduced insulin requirement, proactively lowering basal insulin should help reduce hypoglycemia risk Karen is advised to self monitor blood sugars frequently so that further adjustments can be made, she is not interested in CGMS, either personal use, for which she would qualify, or for brief professional evaluation; also states she will not be interested in insulin pump therapy should that become an option for her We discussed general principles of healthy eating and Karen is encouraged to return to meet with our outreach educator/director of billing, we will meet next month for routine follow up, Karen is encouraged to contact me with any questions or concerns Assessment & Plan (10/17/2023 10:05 PM EDT): Patient with significantly improved glucose control on 24 units split twice daily. We discussed continuing to monitor and adjust insulin dosing-will go up by 2 units if sugars still near 200. May also need to add short acting insulin due to presumed type I status. Referral placed to diabetes clinic for further discussion and management. Patient agreeable to this plan. Assessment & Plan (10/09/2023 10:10 PM EST): Patient's glucose significantly elevated in clinic, denies need for return to ER at this time. We discussed starting insulin at 10 units in the evening, will check back in a few days to titrate up (as will likely be needed). Patient to monitor and if any significant change in symptoms or worsening should go to the ER for emergent evaluation. Labs ordered for evaluation of possible type I diabetic physiology based on rapidity of change and patient's overall body habitus. 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 Acute on chronic injury. Assessment & Plan (08/30/2024 1:16 PM EST): Back pain stable, continue monitoring. Referral placed to PT. Assessment & Plan (05/03/2024 2:19 PM EDT): Surgical intervention planned for herniated disc, continue monitoring. Follow-up with neurosurgery as scheduled. Assessment & Plan (03/07/2024 2:19 PM EDT): Significant lower extremity dysfunction with falls, suspect she needs to move forward with surgery however she is nervous to do so. Continue working with PT but would recommend AFO evaluation to help prevent falls. Recommend follow-up with neurosurgery again to discuss treatment options and reevaluate due to suspected progression of weakness. Assessment & Plan (01/07/2024 3:32 PM EDT): Worsening course recently- follow up with neurosurgery as planned. Agree with need for intervention, will try to optimize other medical conditions due to potential upcoming surgery. Assessment & Plan (11/28/2023 11:07 PM EDT): Continues to be problematic, order placed for tramadol. Continue to monitor and follow-up with orthopedics as planned. Assessment & Plan (10/17/2023 10:06 PM EDT): Chronic low back pain, well-controlled with diclofenac, needs refill today. Assessment & Plan (01/07/2022 11:37 AM EDT): She reports having degenerative disc disease in the neck and the low back, as well as herniated disks With back pain being more bothersome than neck pain - Good supportive shoes - Modified work environment when possible -Restart diclofenac instead of other NSAIDs, if renal function is normal. Does not take Tylenol, due to history of hepatitis C. -Add in cyclobenzaprine as needed for spasm Depression 09/16/2018 DJD (degenerative joint disease) of cervical spi ne 09/16/2018 Lumbar herniated disc 09/16/2018 Assessment & Plan (02/05/2025 1:12 PM EDT): Previously noted herniated lumbar disc-has had some up-and-down with pain, looking to do more definitive treatment. We discussed repeat MRI as first step. She is in agreement. Assessment & Plan (12/06/2024 1:52 PM EDT): Suspect worsening of previous herniated lumbar disc, recommend continuing monitoring and follow-up after PT. Tobacco abuse 09/16/2018 Assessment & Plan (11/13/2023 10:25 PM EDT): Advised to stop smoking Increased CV risks related to diabetes and also due to active tobacco smoking history Tobacco smoking may also lead to inaccuracies/false elevations of A1c Anxiety state 09/16/2018 Assessment & Plan (03/07/2024 2:24 PM EDT): Stable currently, continue monitoring. Refill medication. Assessment & Plan (01/07/2024 3:32 PM EDT): Stable and well controlled on current meds. Assessment & Plan (10/09/2023 10:10 PM EST): Stable on prior medicines, continue monitoring. Refills placed today. Trigger finger of both hands 09/16/2018 Resolved Problems Problem Noted Date Diagnosed Date Resolved Date Hepatitis C 09/16/2018 10/17/2023 Assessment & Plan (01/07/2022 11:35 AM EDT): Has been treated with antivirals, she reports successfully Will check hepatitis C viral load Encounters Date Type Department Care Team Description 04/01/2025 Refill [facility] [address] [place] [address] [place] [id number] Shelbi Guerra 03/31/2025 2:15 PM EDT Office Visit [facility] [address] [place] [address] [place] [address] Guillermo Nadege Ireland, HEALTH COUNSELOR Wall, Mehnaz, PT Chronic bilateral low back pain with bilateral sciatica (Primary Dx); Foot drop, left 03/24/2025 11:15 AM EDT Office Visit [facility] [address] [place] [phone] Dolores Limukesh Ireland, HEALTH COUNSELOR Wall, Mehnaz, PT Chronic bilateral low back pain with bilateral sciatica (Primary Dx); Foot drop, left 03/17/2025 8:15 AM EDT Office Visit [facility] [address] [place] [address] Guillermo Nadege Ireland, HEALTH COUNSELOR Wall, Mehnaz, PT Chronic bilateral low back pain with bilateral sciatica (Primary Dx); Foot drop, left 03/16/[address] [place] [address] Dagoberto Miranda, DO Medication Refill 03/11/2025 7:00 AM EDT Office Visit [facility] [address] [place] [address] Guillermo Nadege Ireland, HEALTH COUNSELOR Wall, Mehnaz, PT Chronic bilateral low back pain with bilateral sciatica (Primary Dx) 03/11/[address] [place] [address] Dagoberto Miranda, DO Medication Refill (Pen needles ) 03/08/[address] [place] [address] Dagoberto Miranda, DO Medication Refill 03/08/2025 Ancillary Orders [facility],Outside Imaging [address] [place] [phone] Angelica, MD Angelica 03/07/2025 3:36 PM EDT - 03/07/2025 11:59 PM EDT Hospital Encounter [facility], [facility] [address] [place] [address] Dagoberto Miranda, Discharge Disposition: Home or Self Care 03/03/2025 8:15 AM EDT Office Visit [facility] [address] [place] [address] Nadege Li, Mehnaz Amaya, PT Chronic bilateral low back pain with bilateral sciatica (Primary Dx) 02/24/2025 8:15 AM EDT Office Visit [facility] [address] [place] [address] Nadege Li, Mehnaz Amaya, PT Chronic bilateral low back pain with bilateral sciatica (Primary Dx); Foot drop, left 02/24/[address] [place] [address] Dagoberto Miranda, 02/24/2025 Telephone [facility] [address] [place] [address] Mehnaz Wall, PT 02/23/[address] [place] [address] Dagoberto Miranda, Medication Refill 02/09/2025 9:47 AM EDT - 02/09/2025 11:59 PM EDT Hospital Encounter [facility] [address] [place] [address] [place] [address] Dagoberto Miranda, Discharge Disposition: Home or Self Care 02/09/[address] [place] [address] Dagoberto Miranda, Referral 02/09/[address] [place] [address] Dagoberto Miranda, 02/02/2025 2:30 PM EDT Office Visit [address] [place] [address] Dagoberto Miranda, Type 1 diabetes mellitus without complication (Primary Dx); Mass of upper inner quadrant of left breast; Lumbar herniated disc; Lumbar radiculopathy; Annual physical exam 02/02/2025 Procedure Pass [facility], [facility] [address] [place] [address] 02/02/2025 Telephone [facility] [address] [place] [address] Dagoberto Miranda, DO Forms & Paperwork 01/22/[address] [place] [address] Dagoberto Miranda, DO Medication Prior Authorization 01/20/[address] [place] [address] Dagoberto Miranda, DO Medication Refill 01/20/[address] [place] [address] Dagoberto Miranda, DO PT Treatment 01/11/[address] [place] [address] Dagoberto Miranda, Medication Refill 01/08/[address] [place] [address] Dagoberto Miranda, Medication Prior Authorization 01/08/[address] [place] [address] Dagoberto Miranda, DO Request For Records from Last 3 Months Immunizations Immunization Administration Dates Next Due COVID-19 (Pre-05/27) Moderna Vaccine, mRNA, PF 10/19/2020,09/21/2020 Influenza Quadrivalent Preservative Free IM 06/05,06/13/2020,07/03/2017 Td (adult),2 Lf Tetanus Toxo id, PF, Adsorbed 12/23/2017 Family History Medical History Relation Comments Autism Brother Diabetes Brother Hyperlipidemia Brother Hypertension Brother Obesity Brother Alcohol abuse Father Anxiety disorder Father Depression Father Hypertension Father Lung cancer Father Stroke Father Goiter Maternal Grandmother Lung cancer Maternal Grandmother Relation Status Comments Brother Father smoker Maternal Grandmother smoker Mother Social History Tobacco Use Types Packs/Day Years Used Date Smoking Tobacco: Every Day Cigarettes 0.5 45 Smokeless Tobacco: Never Tobacco Cessation:Ready to Q uit: Not Asked; Counseling Given: Not Answered Alcohol Use Standard Drinks/Week Comments Yes 14 [...] Orientation Straight 09/09/2018 11 :57 AM EST Last Filed Vital Signs Vital Sign Reading Time Taken Comments Blood Pressure 122/76 02/02/2025 2:17 PM EDT Pulse 80 02/02/2025 2:17 PM EDT Temperature 36.7 C (98 F) 10/16/2024 2:35 PM EDT Respiratory Rate 17 01/07/2024 10:20 AM EDT Oxygen Saturation 98% 02/02/2025 2:17 PM EDT Inhaled Oxygen Concentration - - Weight 59 kg (130 lb) 03/03/2025 7:49 PM EDT Height 165.1 cm (5' 5 ) 03/03/2025 7:49 PM EDT Body Mass Index 21.63 03/03/2025 7:49 PM EDT Plan of Treatment Upcoming Encounters Date Type Department Care Team (Late st Contact Info) Description 04/07/2025 2:15 PM EDT Office Visit [facility] [address] [place] [address] Nadege Li, HEALTH COUNSELOR [address] [facility] [place] [address] Mehnaz Wall, PT [address] [place] [address] [email or web address] 04/14/2025 9:45 AM EDT Office Visit [facility] [address] [place] [address] Nadege Li, HEALTH COUNSELOR [address] [facility] [place] [address] Mehnaz Wall, PT [address] [place] [address] [email or web address] 08/06/2025 1:30 PM EST Office Visit [facility] [address] [place] [address] [place] [address] Dagoberto Miranda, [address] [facility] [place] [address] Health Maintenance Due Date Last Done Comments PNEUMOCOCCAL VACCINES (50+ years) (1 of 2 - PCV) 1982 MAMMOGRAM 2003 COLOGUARD 2008 COLONOSCOPY 2008 COLORECTAL CANCER SCREENING 2008 FIT TEST 2008 FOBT 2008 SIGMOIDOSCOPY 2008 VIRTUAL COLONOSCOPY 2008 LUNG CANCER SCREENING (LDCT Only) 2013 ZOSTER VACCINES (1 of 2) 2013 DIABETIC EYE EXAM 01/07/2022 RSV VACCINE (1 - Risk 60-74 years 1-dose series) 2023 COVID-19 VACCINE ( season) 2024 09/08/2021, 10/19/2020, 09/21/2020 DEPRESSION SCREENING 10/07/2024 10/08/2023 INFLUENZA VACCINE (#1) 2025 , 06/13/2020, 07/03/2017 BLOOD PRESSURE 08/05/2025 02/02/2025 HEMOGLOBIN A1C 08/12/2025 02/09/2025, 10/03, 10/09/2023, Additional history exists LIPID PANEL 10/21/2025 10/21/2024, 0608/2021, 11/03/2018 URINE MICROALBUMIN/CREATININE RATIO 10/21/2025 10/21/2024, 01/03/2022 SMOKING Hx and SMOKELESS TOBACCO SCREENING 02/02/2026 02/02/2025 PAP SMEAR 03/17/2027 03/17/2024 Adult Td,Tdap Booster 12/24/2027 12/23/2017 HEPATITIS C SCREENING Completed 01/03/2022 , 08/10/2019, 05/27/2019, Additional history exists HIV ONE-TIME SCREENING (18-65 YEARS) Completed 10/09/2023 HEPATITIS A VACCINES Aged Out No long er eligible based on patient's age to complete this topic HIB VACCINES Aged Out No longer eligi ble based on patient's age to complete this topic MENINGOCOCCAL VACCINES (ACWY) Aged Out No longer eligible based on patient's age to complete this topic MENINGOCOCCAL VACCINES (B) Aged Out N o longer eligible based on patient's age to complete this topic Medical Devices Not on file Procedures Procedure Name Priority Date/Time Associated Diagnosis Comments MRI LUMBAR SPINE (NEURO) WITHOUT CONTRAST Routine 03/07/2025 4:33 PM EDT Lumbar herniated disc Lumbar radiculopathy COMPREHENSIVE METABOLIC PANEL Routine 02/09/2025 9:48 AM EDT Annual physical exam TSH WITH REFLEX Routine 02/09/2025 9:48 AM EDT Annual physical exam CBC Routine 02/09/2025 9:48 AM EDT Annual physical exam HEMOGLOBIN A1C Routine 02/09/2025 9:48 AM EDT Type 1 diabetes mellitus without complication MICROALBUMIN/CREATINI NE RATIO, RANDOM URINE Routine 10/21/2024 9:29 AM EDT Type 1 diabetes mellitus with hyperglycemia LIPID PANEL Routine 10/21/2024 9:22 AM EDT Type 1 diabetes mellitus with hyperglycemia PAP TEST Routine 03/17/2024 12:00 AM EDT HEPATITIS C VIRAL LOAD (PCR) Routine 01/03/2022 11:20 AM EDT Chronic hepatitis C without hepatic coma from Last 3 Months or Most Recently Relevant to Health Maintenance Results * MRI LUMBAR SPINE (NEURO) WITHOUT CONTRAST (03/07/2025 4:33 PM EDT) Anatomical Region Laterality Modality L-spine Magnetic Resonan ce 03/08/2025 3:59 PM EDT Impressions 03/08/2025 4:41 PM EDT 1. Increased irregularities along the endplates at L4-L5 with apparent widening of the intervertebral disc space, without intervertebral disc fluid signal or adjacent marrow edema to suspect infection; findings which could be due to erosive changes or erosive osteoarthritis. 2. Extensive degenerative disc disease and facet joint arthropathy at multiple levels, with mild canal stenosis at multiple levels, and multilevel foramina stenosis, severe at L3-L4 and L4-L5. Narrative 03/08/2025 4:41 PM EDT MRI LUMBAR SPINE (NEURO) WITHOUT CONTRAST Referring clinician's provided indication for this examination in Epic: * Lumbar radiculopathy, > 6 wks TECHNIQUE: MRI LUMBAR SPINE (NEURO) WITHOUT CONTRAST Multi-sequence, multi-planar MRI of the lumbar spine was performed without intravenous contrast. COMPARISON: Abdomen CT from 10/30/2023. Lumbar spine MRI November 14, 2018. FINDINGS: LUMBAR SPINE: Alignment and Vertebrae: S-shaped scoliosis of the spine with dextroconvexity in the thoracolumbar junction and levoconvex curvature in the lower lumbar spine. In the sagittal plane the alignment is normal without listhesis. Vertebral body height is normal. No compression fracture. Marrow: No worrisome bone marrow replacing lesion. Discs and Endplates: There is loss of disc height at L4-L5 and L5-S1. There are increased irregularities along the endplates apparent widening of the intervertebral disc space. However, there is no intervertebral disc fluid signal or adjacent marrow edema to suspect infection. There are Modic type II endplate changes along the L3-L4 and L4-L5 endplates. The presumably widening of the intervertebral disc space and irregularity of the endplates may be due to erosive changes or erosive osteoarthritis. There is loss of disc height and signal at T11-T12. Conus: The tip of the conus ends at T12-L1. No compression. Soft Tissues: No prevertebral edema. Posterior paraspinal soft tissues are unremarkable. Other Findings: None. Findings by level: T11-T12: Disc bulge and facet hypertrophy. Mild [...] spinal canal stenosis. Moderate bilateral foraminal stenosis. Procedure Note Karissa Gallardo MD - 03/08/2025 MRI LUMBAR SPINE (NEURO) WITHOUT CONTRAST Referring clinician's provided indication for this examination in Epic: *Lumbar radiculopathy, > 6 wks TECHNIQUE: MRI LUMBAR SPINE (NEURO) WITHOUT CONTRAST Multi-sequence, multi-planar MRI of the lumbar spine was performed withoutintravenous contrast. COMPARISON: Abdomen CT from 10/30/2023. Lumbar spine MRI November 14, 2018. FINDINGS: LUMBAR SPINE: Alignment and Vertebrae: S-shaped scoliosis of the spine withdextroconvexity in the thoracolumbar junction and levoconvex curvature inthe lower lumbar spine. In the sagittal plane the alignment is normalwithout listhesis. Vertebral body height is normal. No compressionfracture. Marrow: No worrisome bone marrow replacing lesion. Discs and Endplates: There is loss of disc height at L4-L5 and L5-S1.There are increased irregularities along the endplates apparent wideningof the intervertebral disc space. However, there is no intervertebral discfluid signal or adjacent marrow edema to suspect infection. There areModic type II endplate changes along the L3-L4 and L4-L5 endplates. Thepresumably widening of the intervertebral disc space and irregularity ofthe endplates may be due to erosive changes or erosive osteoarthritis.There is loss of disc height and signal at T11-T12. Conus: The tip of the conus ends at T12-L1. No compression. Soft Tissues: No prevertebral edema. Posterior paraspinal soft tissues areunremarkable. Other Findings: None. Findings by level: T11-T12: Disc bulge and facet hypertrophy. Mild spinal canal stenosis.Moderate foraminal stenosis. T12-L1: Facet arthropathy. No spinal or foraminal stenosis. L1-L2: Minimal disc bulging and facet arthropathy. No significant spinalcanal stenosis. Moderate bilateral foraminal stenosis. L2-L3: Disc bulge and facet joint arthropathy. Ligamentum flavumthickening. No significant spinal canal stenosis. Moderate foraminalstenosis. L3-L4: Disc/osteophyte complex. Facet joint hypertrophy and ligamentumflavum thickening. Mild spinal canal stenosis. Severe left greater thanright foraminal stenosis. L4-L5: Disc osteophyte complex. Facet hypertrophy and ligamentum flavumthickening. Mild spinal canal stenosis. Severe bilateral foraminalstenosis. L5-S1: Disc bulge with possible small central disc protrusion. Facet jointarthropathy. No high-grade spinal canal stenosis. Moderate bilateralforaminal stenosis. IMPRESSION: 1. Increased irregularities along the endplates at L4-L5 with apparentwidening of the intervertebral disc space, without intervertebral discfluid signal or adjacent marrow edema to suspect infection; findings whichcould be due to erosive changes or erosive osteoarthritis. 2. Extensive degenerative disc disease and facet joint arthropathy atmultiple levels, with mild canal stenosis at multiple levels, andmultilevel foramina stenosis, severe at L3-L4 and L4-L5. us Dagoberto Tremaine Miranda DO IMG MR XSPECIALTY Final Result * (ABNORMAL) Comprehensive metabolic panel (02/09/2025 9:48 AM EDT) SODIUM 135 133 - 146 mmol/L [facility] POTASSIUM 4.2 3.3 - 5.1 mmol/L [facility] CHLORIDE 98 96 - 108 mmol/L [facility] CO2 26 21 - 35 mmol/L [facility] BUN 21(H) 6 - 19 mg/dL [facility] CREATININE 1.00 0.5 - 1.5 mg/dL [facility] GLUCOSE 221(H) 70 - 99 mg/dL [facility] ALBUMIN 4.3 3.9 - 4.8 g/dL [facility] TOTAL PROTEIN 7.9 6.5 - 8.0 g/dL [facility] CALCIUM 9.1 8.4 - 10.3 mg/dL [facility] ALKALINE PHOSPHATASE 85 39 - 117 U/L [facility] TOTAL BILIRUBIN <0.2 0.0 - 1.2 mg/dL [facility] AST 29 0 - 37 U/L [facility] ALT 24 0 - 40 U/L [facility] GLOBULIN 3.6 1 - 4.8 g/dL [facility] EGFR 64 >59 mL/min/1.7 3m2 [facility] Comment:Estimated glomerular filtration rate calculated using the CKD-EPI refit equation. ANION GAP 15 10 - 20 mmol/L [facility] Blood 02/09/2025 9:48 AM EDT 02/09/2025 9:53 AM EDT [employer] Dagoberto Miranda DO LAB BLOOD ORDERABLES Fi nal Result [address] [address] * TSH with reflex (02/09/2025 9:48 AM EDT) TSH 0.81 0.27 - 4.20 uIU/mL [facility] Blood 02/09/2025 9:48 AM EDT 02/09/2025 9:53 AM EDT Dagoberto Miranda LAB BLOOD ORDERABLES Fi nal Result Performing Organization Address [facility] Co de Phone Number [address] [address] * (ABNORMAL) CBC (02/09/2025 9:48 AM EDT) WBC 4.38 4.00 - 11.00 K/uL [facility] RBC 4.05 4.00 - 5.20 M/uL [facility] HGB 12.6 12.0 - 16.0 g/dL [facility] HCT 38.4 36.0 - 46.0 % [facility] PLT 202 150 - 450 K/uL [facility] MCV 94.8 80.0 - 100.0 fL [facility] MCH 31.1(H) 27.0 - 31.0 pg [facility] MCHC 32.8 32.0 - 36.0 g/dL [facility] RDW 11.2(L) 11.5 - 14.5 % [facility] MPV 10.1 8.4 - 12.0 fL [facility] NRBC 0.00 0.00 /100 WBCs [facility] ABSOLUTE NRBC 0.00 0.00 K/uL [facility] Blood 02/09/2025 9:48 AM EDT 02/09/2025 9:53 AM EDT [employer] Dagoberto Miranda DO LAB BLOOD ORDERABLES Fi nal Result Performing Organization Address City/[facility]/ZIP Co de Phone Number [address] [address] * Hemoglobin A1c (02/09/2025 9:48 AM EDT) HEMOGLOBIN A1C 5.8 4.3 - 5.8 % [facility] Blood 02/09/2025 9:48 AM EDT 02/09/2025 9:55 AM EDT us Dagoberto Miranda DO LAB BLOOD ORDERABLES Fi nal Result Performing Organization Address [facility] Co de Phone Number [address] [address] * Microalbumin/creatinine ratio, random urine (10/21/2024 9:29 AM EDT) URINE MICROALBUMIN <1.2 0 - 2.3 mg/dL [facility] URINE CREATININE 66 mg/dL [facility] MICROALB/CRE RATIO NOT CALCULATED 0 - 20 mg/g Cre [facility] Comment:due to Microalbumin <1.2 Urine 10/21/2024 9:29 AM EDT 10/21/2024 9:32 AM EDT us Dagoberto Miranda DO URINE ORDERABLES Final Result Performing Organization Address [facility] Co de Phone Number [address] [address] * Lipid panel (10/21/2024 9:22 AM EDT) HDL 48 mg/dL [facility] Comment: Interpretation <40 mg/dL: Low HDL cholesterol (major risk factor for CHD) Greater than or equal to 60 mg/dL: High HDL cholesterol ( negative risk factor for CHD) HDL - cholesterol is affected by a number of factors, e.g. smoking, excerise, hormones, sex and age. CHOLESTEROL 163 0 - 240 mg/dL [facility] TRIGLYCERIDES 135 30 - 160 mg/dL [facility] LDL 88 50 - 129 mg/dL [facility] Comment: LDL levels in terms of risk for coronary heart disease: <100 mg/dL: Optimal 100-129 mg/dL: Near or above optimal 130-159 mg/dL: Borderline high 160-189 mg/dL: High >190 mg/dL: Very High CARDIAC RISK RATIO 3.4 3.3 - 4.4 C [facility] Blood 10/21/2024 9:22 AM EDT 10/21/2024 9:27 AM EDT us Dagoberto Miranda DO LAB BLOOD ORDERABLES Fi nal Result [address] [address] * Pap Test (03/17/2024 12:00 AM EDT) 03/17/2024 03/18/2024 9:0 1 AM EDT Narrative SEE NARRATIVE - 03/23/2024 5:07 PM EDT [address] [address] Cherry Cutter: Emily Parker MD OVER[employer]AVER Cytology Report FINAL DIAGNOSIS A. PAP SMEAR (THIN PREP) CE: SPECIMEN ADEQUACY: Satisfactory for evaluation; transformation zone absent/insufficient. INTERPRETATION: NEGATIVE FOR INTRAEPITHELIAL LESION OR MALIGNANCY. This specimen was analyzed by the automated ThinPrep Imaging System ([employer] and the selected larios were reviewed by a forestry crew chief. Electronically Signed Out By: JHONNY Ham(ASCP) The Pap test is a screening test primarily for squamous cancers and precursors and has associated false-negative and false-positive results. New technologies such as liquid-based preparations may decrease but will not eliminate all false-negative results. Regular sampling and follow-up of unexplained clinical signs and symptoms are recommended to minimize false negative results. PROCEDURES/ADDENDA HPV Testing (Requested) Ordered Date: 03/18/2024 A. PAP SMEAR (THIN PREP) CE: Human Papilloma Virus Test NEGATIVE for high-risk Human Papilloma Virus types 16, 18, 45 and the Other high risk probe set (Includes 31, 33, 35, 39, 51, 52, 56, 58, 59, 66, 68) Note: Testing performed by [employer] Onclarity HR-HPV analysis. Clinical correlation is advised. This HPV test was performed at [facility], [address] [place] [address]. This test has been FDA approved for both SurePath and ThinPrep cervical cytology specimens. The accuracy and precision of this test for all other specimen sources has been verified in the Cytopathology Laboratory of the [facility] and has not been cleared or approved by the U.S. Food and Drug Administration. Clinical correlation is advised. CLINICAL HISTORY Date of Last Menstrual Period: Not Provided Menstrual History: Post Menopausal Other Clinical Conditions: Screening Pap SPECIMEN SOURCE A: PAP SMEAR (THIN PREP) CE Patient Name: KAREN VILLA : 1965 (Age: 58) Sex: F Institution: [facility] Location: [facility] Date of Collection: 03/17/2024 Date of Reported: 03/23/2024 17:07 Results to: Deonna Munguia MD Deonna Munguia MD CYTOLOGY ORDERABLES Final Result SEE NARRATIVE * Hepatitis C viral load (PCR) (01/03/2022 11:20 AM EDT) HCV RNA DETECT/QNT Undetected Undetected IU/mL [facility] [address] Comment: (NOTE) Result in log IU/mL is Undetected. ADDITIONAL INFORMATION The quantification range of this assay is 15 to 100,000,000 IU/mL (1.18 log to 8.00 log IU/mL). Testing was performed using the colten HCV test ([employer] with the colten [place]0 System. Blood (Blood) 01/03/2022 11: 20 AM EDT 01/03/2022 11:28 AM EDT us Aletha Peguero MD NON CULTURE MICROBIOLOGY Final R esult [facility] [address] [place] [address] from Last 3 Months or Most Recently Relevant to Health Maintenance Insurance [facility] MGP ACO [facility] ACO MGP ACO [place] [id number] [facility] INSURANCE Care Teams Medical Lab Tech Instructor Relationship Specialty Start Date End Date Dagoberto Miranda DO [address] [place] [address], [address] [place] [address] [email or web address] PCP - General Internal Medicine 9/25/23 Additional Source Comments The information contained in this document represents components of the legal health record. It is not the complete legal health record.[facility]
--- OUTSIDE RECORDS SUMMARY | 2025-04-02 14:12 | XMS_ITS | Encounter Summary ---
Author Organization [facility] Address [address] [place] [address] [place] [address] Phone Care Team Providers Care Finished Goods Inspector Name Role Phone Kassidy Centeno RNsteam drier tender Provider [phone] Unknown, Unknown Primary Care Provider Aletha Flores MD Primary Care Provider [email or web address] Dagoberto Miranda DO Primary Care Provider Encounter Details Date Type Department Care Team (Late st Contact Info) Description 10/16/2018 Ancillary Orders Virtual Department [address] [place] [address] Ashley Velez PA-C [address] [place] [address] [email or web address] Hepatitis C virus infection without hepatic coma, unspecified chronicity Social History Tobacco Use Types Packs/Day Years Used Date Smoking Tobacco: Every Day Cigarettes 0.5 45 Smokeless Tobacco: Never Alcohol Use Standard Drinks/Week Comments Yes 14 (1 standard drink = 0.6 oz pu re alcohol) Comments No Sex and Gender Information Value Date Recorded Sex Assigned at Female 08/12/2017 9:38 AM EST Legal Sex Female 9:43 PM EDT Gender Identity Female 09/30/2017 4:37 PM EST Sexual Orientation Straight 09/09/2018 11 :57 AM EST documented as of this encounter Plan of Treatment Upcoming Encounters Date Type Department Care Team (Late st Contact Info) Description 04/07/2025 2:15 PM EDT Office Visit [facility] [address] [place] [address] Nadege Li, COLIN [address] [address] [email or web address] Mehnaz Wall, PT [address] [place] [address] 04/14/2025 9:45 AM EDT Office Visit [facility] [address] [place] [address] Nadege Li, COLIN [address] [address] [email or web address] Mehnaz Wall, PT [address] [place] [address] 08/06/2025 1:30 PM EST Office Visit [facility] [address] [place] [address] [place] [address] Dagoberto Miranda DO [address] [place] [address] [email or web address] documented as of this encounter Visit Diagnoses Diagnosis Hepatitis C virus infection without hepatic coma, unspecified chronicity documented in this encounter Care Teams Finished Goods Inspector Relationship Specialty Start Date End Date Kassidy Centeno RN [address] [place] [id number] PCP - General Internal Medicine 09/15/18 09/28/20 Unknown, Angelica, PCP - General 12/28/21 01/06/22 Aletha Peguero MD [email or web address] PCP - General Family Medicine 01/07/2204/28 Dagoberto Miranda DO [address] [place] [address], [address] [place] [address] [email or web address] PCP - General Internal Medicine 04/29/23 documented as of this encounter Additional Source Comments The information contained in this document represents components of the legal health record. It is not the complete legal health record.[facility]
--- OUTSIDE RECORDS SUMMARY | 2025-04-02 14:12 | XMS_ITS | Encounter Summary ---
Author Organization [facility] Address [address] [place] [address] Phone Care Team Providers Care Rn Practitioner Name Role Phone Norris Silverman MD Primary Care Provider [email or web address] Kassidy Centeno RNtours hostess Provider [phone] Unknown, Unknown Primary Care Provider Aletha Flores MD Primary Care Provider [email or web address] Dagoberto Miranda DO Primary Care Provider Reason for Referral * MRI/CAT Scan - Closed Specialty Diagnoses / Procedures Referred By Elia messina Referred To Contact Radiology Diagnoses Lumbar radiculopathy Procedures MRI Lumbar Spine Solomon Mason NP Phone: tel: fax: [email or web address] Referral ID Status Reason Start Date Expiration Date Visits Re quested Visits Authorized [id number] Closed 10/01/2017 11/30/2017 1 1 Encounter Details Date Type Department Care Team (Latest Contact Info) Description 10/04/2017 Ancillary Orders [facility] Department [address] [place] [address] Solomon Mason NP [address] [place] [address] [email or web address] Lumbar radiculopathy Social History Tobacco Use Types Packs/Day Years Used Date Smoking Tobacco: Unknown Comments Unknown Sex and Gender Information Value Date Recorded Sex Assigned at Female 08/12/2017 9:38 AM EST Legal Sex Female 9:43 PM EDT Gender Identity Female 09/30/2017 4:37 PM EST Sexual Orientation Straight 09/09/2018 11 :57 AM EST documented as of this encounter Plan of Treatment Upcoming Encounters Date Type Department Care Team (Late st Contact Info) Description 04/07/2025 2:15 PM EDT Office Visit [facility] [address] [place] [address] Nadege Li, COLIN 170 [facility], [address] [place] [address] Mehnaz Wall, PT [address] [place] [address] 04/14/2025 9:45 AM EDT Office Visit [facility] [address] [place] [address] Nadege Li, KEYBOARD INSTRUMENT REPAIRER 170 [facility], [address] [place] [address] Mehnaz Wall, PT [address] [place] [address] 08/06/2025 1:30 PM EST Office Visit [facility] [address] [place] [address] [place] [address] Dagoberto Miranda DO [address] [facility], [address] [place], [place] [id number] documented as of this encounter Results * MRI LUMBAR SPINE (BONE) WITHOUT CONTRAST (10/18/2017 3:00 PM EDT) Anatomical Region Laterality Modality L-spine Magnetic Resonan ce 10/18/2017 4:01 PM EDT Impressions 10/18/2017 4:25 PM EDT Multilevel spondylotic changes with compression of both L3 nerve roots in their foramina as well as the right L4 nerve root in its foramen and narrowing at the right lateral recess L4 which may compress the L5 nerve root on the right. Ordering provider: Solomon Mason NP POS - [id number] Edited by: Mehreen Leo on 10/18/2017 4:18 PM Narrative 10/18/2017 4:25 PM EDT HISTORY: Low back pain with right radiculopathy. COMPARISON: None. TECHNIQUE: Exam performed on a 1.5 Margret high-field MRI scanner. Sagittal T1, T2 and STIR, axial T1 and T2 sequences were obtained. FINDINGS: T11-12: Degenerative disc disease with disc bulging. No significant canal or foraminal stenosis. Minor facet degenerative change. Minor foraminal narrowing. T12-L1 and L1-2: On sagittal views no finding of concern. L2-3: No finding of concern. L3-4: Advanced degenerative disc disease with endplate irregularity and sclerosis. Disc ridge complex and some facet arthropathy are present as well. In combination with some foraminal disc bulging there appears to be compression of the right L3 nerve root in its foramen. There is also compression of the left L3 nerve root in its foramen from similar changes. No high-grade central canal stenosis. There is some lateral recess narrowing bilaterally. L4-5: Degenerative disc disease with disc ridge complex as well as focal disc bulge and protrusion extending out to the left foramen and right paracentrally in the thecal sac causing impression on the lateral recess which may impinge on the L5 nerve root on the right. There appears to be mass effect on the L4 nerve root in its foramen from the facet and endplate changes present. Lesser narrowing on the left without the degree of nerve root compression seen at the other levels. L5-S1: No findings of concern. Some minor facet degenerative change is present. No worrisome marrow signal change. No compression deformity. Study is not tailored for evaluation of regional soft tissues but no soft tissue findings of clear concern are identified within the [id number]. Conus appears to be present at L1. No syrinx in the visualized lower thoracic cord. Procedure Note Cici Pastrana MD - 10/18/2017 HISTORY: Low back pain with right radiculopathy. COMPARISON: None. TECHNIQUE: Exam performed on a 1.5 Margret high-field MRI scanner. SagittalT1, T2 and STIR, axial T1 and T2 sequences were obtained. FINDINGS: T11-12: Degenerative disc disease with disc bulging. No significant canalor foraminal stenosis. Minor facet degenerative change. Minor foraminalnarrowing. T12-L1 and L1-2: On sagittal views no finding of concern. L2-3: No finding of concern. L3-4: Advanced degenerative disc disease with endplate irregularity andsclerosis. Disc ridge complex and some facet arthropathy are present aswell. In combination with some foraminal disc bulging there appears to becompression of the right L3 nerve root in its foramen. There is alsocompression of the left L3 nerve root in its foramen from similar changes.No high-grade central canal stenosis. There is some lateral recessnarrowing bilaterally. L4-5: Degenerative disc disease with disc ridge complex as well as focaldisc bulge and protrusion extending out to the left foramen and rightparacentrally in the thecal sac causing impression on the lateral recesswhich may impinge on the L5 nerve root on the right. There appears to bemass effect on the L4 nerve root in its foramen from the facet andendplate changes present. Lesser narrowing on the left without the degreeof nerve root compression seen at the other levels. L5-S1: No findings of concern. Some minor facet degenerative change ispresent. No worrisome marrow signal change. No compression deformity. Study is not tailored for evaluation of regional soft tissues but no softtissue findings of clear concern are identified within the [id number].Conus appears to be present at L1. No syrinx in the visualized lowerthoracic cord. IMPRESSION: Multilevel spondylotic changes with compression of both L3 nerve roots intheir foramina as well as the right L4 nerve root in its foramen andnarrowing at the right lateral recess L4 which may compress the L5 nerveroot on the right. Ordering provider: Solomon Mason NP POS - [id number] Edited by: Mehreen Leo on 10/18/2017 4:18 PM Solomon Urbano Mason CALL CENTER TRAINER IMG MR XSPECIALTY Final R esult documented in this encounter Visit Diagnoses Diagnosis Lumbar radiculopathy Thoracic or lumbosacral neuritis or radiculitis, unspecified Lumbar radiculopathy Thoracic or lumbosacral neuritis or radiculitis, unspecified documented in this encounter Care Teams Rn Practitioner Relationship Specialty Start Date End Date Norris Silverman MD [email or web address] PCP - General Family Medicine 07/18/17 09/14/18 Kassidy Centeno RN [address] [place] [address] [email or web address] PCP - General Internal Medicine 09/15/18 09/28/20 Unknown, Angelica, PCP - General 12/28/21 01/06/22 Aletha Peguero MD [email or web address] PCP - General Family Medicine 01/07/2204/28 Dagoberto Miranda DO [address] [place] [address], [address] [place] [address] PCP - General Internal Medicine 04/29/23 documented as of this encounter Additional Source Comments The information contained in this document represents components of the legal health record. It is not the complete legal health record.[facility]
--- OUTSIDE RECORDS SUMMARY | 2025-04-02 14:12 | XMS_ITS | Encounter Summary ---
Author Organization [facility] Address [address] [place] [address] [place] [address] Phone Care Team Providers Care Replanting Machine Crew Name Role Phone Kassidy Centeno RNcreative intern Provider [phone] Unknown, Unknown Primary Care Provider Aletha Flores MD Primary Care Provider [email or web address] Dagoberto Miranda DO Primary Care Provider Encounter Details Date Type Department Care Team (Latest Contact Info) Description 02/17/2019 Transcribe Orders [facility] Laboratory 10 [facility] 2nd [place] [address] Ashley Velez PA-C [address] [place] [address] [email or web address] Hepatitis C virus infection without hepatic coma, unspecified chronicity (Primary Dx) Social History Tobacco Use Types Packs/Day Years [...] Description 04/07/2025 2:15 PM EDT Office Visit [facility] [address] [place] [address] Nadege Li, MULTIMEDIA SERVICES COORDINATOR 170 [facility], 2nd [place] [address] [email or web address] Mehnaz Wall, PT 380 [place] [address] [email or web address] 04/14/2025 9:45 AM EDT Office Visit [facility] [address] [place] [address] Nadege Li, MULTIMEDIA SERVICES COORDINATOR 170 [facility], [address] [place] [address] [email or web address] Mehnaz Wall, PT 380 [place] [address] 08/06/2025 1:30 PM EST Office Visit [facility] [address] [place] [address] [place] [address] Dagoberto Miranda, 170 [facility], [address] [place] [address] documented as of this encounter Results * (ABNORMAL) Hepatitis C genotyping (02/17/2019 2:12 PM EDT) HCV GENOTYPE 1a(A) Undetected [facility] EPT LAB MED/PATH SUPERIOR Comment: (NOTE) ADDITIONAL INFORMATION This test was performed using the [employer] RealTime HCV Genotype II assay ([employer] [place], [place]). Blood (Blood) 02/17/2019 2:1 2 PM EDT 02/17/2019 2:18 PM EDT us Ashley Velez PA-C NON CULTURE MICROBIOLOGY Final Result [facility]PATH SUPERIOR DR [address] [place] [address] * Hepatitis B surface antigen (02/17/2019 2:12 PM EDT) HBV SURFACE ANTIGEN Negative Negative [facility] Blood 02/17/2019 2:12 PM EDT 02/17/2019 2:18 PM EDT us Ashley ZULUAGA-C LAB BLOOD ORDERABLES Final Resu lt Performing Organization Address City/[facility]/ZIP Co de Phone Number [facility] [address] [place] [address] documented in this encounter Visit Diagnoses Diagnosis Hepatitis C virus infection without hepatic coma, unspecified chronicity- Primary documented in this encounter Additional Health Concerns Assessment Noted Time PHQ-2 Depression Total Score: 0 11/04/19 19 3:01 PM EDT documented as of this encounter Care Teams Replanting Machine Crew Relationship Specialty Start Date End Date Kassidy Centeno RN [address] [place] [address] [email or web address] PCP - General Internal Medicine 09/15/18 09/28/20 Unknown, Angelica, PCP - General 12/28/21 01/06/22 Aletha Peguero MD [email or web address] PCP - General Family Medicine 01/07/2204/28 Dagoberto Miranda DO [address] [place] [address], 2nd [place] [address] [email or web address] PCP - General Internal Medicine 04/29/23 documented as of this encounter Additional Source Comments The information contained in this document represents components of the legal health record. It is not the complete legal health record.[facility]
--- OUTSIDE RECORDS SUMMARY | 2025-04-02 14:12 | XMS_ITS | Encounter Summary ---
Author Organization [facility] Address [address] [place] [address] Drive [address] [place] [address] Phone Care Team Providers Care Head Of Research & Insights Name Role Phone Miranda, Dagobertobryan Castillow Primary Care Provider Encounter Details Date Type Department Care Team (Late st Contact Info) Description 05/04/2024 Procedure Pass [facility] Endoscopy Admitting Dept Virtual Department 30 [place] [address] Social History Tobacco Use Types Packs/Day Years [...] Description 04/07/2025 2:15 PM EDT Office Visit [facility] [address] [place] [address] Nadege Li, COLIN 170 [facility], 2nd [place] [address] Mehnaz Wall, PT 380 [place] [address] [email or web address] 04/14/2025 9:45 AM EDT Office Visit [facility] [address] [place] [address] Nadege Li, MANAGER SOCIAL WORK 170 [facility], [address]nd [place] [address] Mehnaz Wall, PT [address] [place] [address] [email or web address] 08/06/2025 1:30 PM EST Office Visit [facility] [address] [place] [address] [place] [address] Dagoberto Miranda DO 170 [facility], [address]nd [place] [address] [email or web address] documented as of this encounter Visit Diagnoses Not on filedocumented in this encounter Additional Health Concerns Assessment Noted Time PHQ-2 Depression Total Score: 2 10/08/19 24 8:07 AM EST documented as of this encounter Care Teams Head Of Research & Insights Relationship Specialty Start Date End Date Dagoberto Miranda DO [address] [place] [address], 2nd Floor [place] [phone] [email or web address] PCP - General Internal Medicine 04/29/23 documented as of this encounter Additional Source Comments The information contained in this document represents components of the legal health record. It is not the complete legal health record.[facility]
--- OUTSIDE RECORDS SUMMARY | 2025-04-02 14:12 | XMS_ITS | Encounter Summary ---
Author Organization [facility] Address [address] [place] [address] [address] [place] [address] Phone Care Team Providers Care Rate Examiner Name Role Phone Miranda, Dagobertobryan Penaloza DO Primary Care Provider Encounter Details Date Type Department Care Team (Late st Contact Info) Description 02/02/2025 Procedure Pass [facility], [address] [address] Social History Tobacco Use Types Packs/Day Years [...] Office Visit [facility] 380 [place] [address] Nadege Li, COLIN 170 [facility], 2nd [place] [address] Mehnaz Wall, PT 380 [place] [address] 04/14/2025 9:45 AM EDT Office Visit [facility] 380 [place] [address] Nadege Li, STOVE MECHANIC 170 [facility], [address] [place] [address] Mehnaz Wall, PT 380 [place] [address] 08/06/2025 1:30 PM EST Office Visit [facility] [address] [place] [address] [place] [address] Dagoberto Miranda DO 170 [facility], [address] [place] [address] documented as of this encounter Visit Diagnoses Not on filedocumented in this encounter Additional Health Concerns Assessment Noted Time PHQ-2 Depression Total Score: 2 10/08/19 24 8:07 AM EST documented as of this encounter Care Teams Rate Examiner Relationship Specialty Start Date End Date Dagoberto Miranda DO [address] [place] [address], 2nd [place] [address] [email or web address] PCP - General Internal Medicine 04/29/23 documented as of this encounter Additional Source Comments The information contained in this document represents components of the legal health record. It is not the complete legal health record.[facility]
--- OUTSIDE RECORDS SUMMARY | 2025-04-02 14:12 | XMS_ITS | Encounter Summary ---
Author Organization [facility] Address [address] [place] [address] [address] [place] [address] Phone Care Team Providers Care Parts Professional Name Role Phone Miranda, Dagoberto Tremaine Primary Care Provider Encounter Details Date Type Department Care Team (Late st Contact Info) Description 10/01/2023 Procedure Pass [facility], Ct Scan - [facility] 30 [place] [address] Social History Tobacco Use Types Packs/Day Years [...] with a working camera? Not on file Comments No Sex and Gender Information Value Date Recorded Sex Assigned at Female 08/12/2017 9:38 AM EST Legal Sex Female 9:43 PM EDT Gender Identity Female 09/30/2017 4:37 PM EST Sexual Orientation Straight 09/09/2018 11 :57 AM EST documented as of this encounter Functional Status * Calculated C-SSRS Risk Score (Lifetime/Recent) Answer Date of Assessment Author No Risk Indicated 10/01/2023 10:01 AM Denia Tuttle RN * [place] Suicide Severity Rating Scale (Screener/Recent Self-Report) Question Answer Date of Assessment Author 1. Wish to be (Past 1 Month) No 024 10:01 AM Denia Tuttle RN 2. Non-Specific Active Suici can Thoughts (Past 1 Month) No 10/01/2023 10:01 AM Jeison Tuttle RN 6. Suicidal Behavior (Lifetime) No 10:01 AM Denia Tuttle RN documented as of this encounter Plan of Treatment Upcoming Encounters Date Type Department Care Team (Late st Contact Info) Description 04/07/2025 2:15 PM EDT Office Visit [address] [address] Nadege Li, [facility] 170 [facility], [address] [place] [address] Mehnaz Wall, PT 380 [place] [address] 04/14/2025 9:45 AM EDT Office Visit [address] [address] Nadege Li, [facility] 170 [facility], [address] [place] [address] eMhnaz Wall, PT [address] [place] [address] 08/06/2025 1:30 PM EST Office Visit [facility] [address] [place] [address] [place] [address] Dagoberto Miranda, DO [address] [place] [address], [address] [place] [address] documented as of this encounter Visit Diagnoses Not on filedocumented in this encounter Additional Health Concerns Assessment Noted Time PHQ-2 Depression Total Score: 1 01/04/20 22 10:37 AM EDT documented as of this encounter Care Teams Parts Professional Relationship Specialty Start Date End Date Dagoberto Miranda DO [address] [place] [address], 2nd [place] [address] [email or web address] PCP - General Internal Medicine 04/29/23 documented as of this encounter Additional Source Comments The information contained in this document represents components of the legal health record. It is not the complete legal health record.[facility]
--- OUTSIDE RECORDS SUMMARY | 2025-04-02 14:12 | XMS_ITS | Encounter Summary ---
Author Organization [facility] Address [address] [place] [address] [place] [address] Phone Care Team Providers Care Technology Program Manager Name Role Phone Kassidy Centeno RNvegetable farmworker Provider [phone] Unknown, Unknown Primary Care Provider Aletha Flores MD Primary Care Provider [email or web address] Dagoberto Miranda DO Primary Care Provider Encounter Details Date Type Department Care Team (Late st Contact Info) Description 01/27/2019 Ancillary Orders Virtual Department [address] [place] [address] Ashley Velez PA-C [address] [place] [address] [email or web address] Hepatitis C virus infection without hepatic coma, [...] Description 04/07/2025 2:15 PM EDT Office Visit [facility] [address] [place] [address] Nadege Li, [facility] 170 [facility], 2nd [place] [address] Mehnaz Wall, PT [address] [place] [address] 04/14/2025 9:45 AM EDT Office Visit [facility] [address] [place] [address] Nadege Li, [facility] 170 [facility], 2nd [place] [address] Mehnaz Wall, PT [address] [place] [address] 08/06/2025 1:30 PM EST Office Visit [facility] [address] [place], [place] [address] [place] [address] Dagoberto Miranda, 170 [facility], [address] [place] [address] documented as of this encounter Results * US ABDOMEN LIMITED RIGHT UPPER QUADRANT (02/10/2019 10:23 AM EDT) Anatomical Region Laterality Modality Abdomen Ultrasound 02/10/2019 1:02 PM EDT Impressions 02/10/2019 1:25 PM EDT Normal ultrasound appearance of the liver. No liver masses. Normal Doppler flow in the main portal vein. POS - [id number] Narrative 02/10/2019 1:25 PM EDT EXAM: US ABDOMEN LIMITED RIGHT UPPER QUADRANT HISTORY: Hepatitis C. TECHNIQUE: Limited abdominal ultrasound was performed of the right upper quadrant with grayscale and color Doppler imaging. COMPARISON: 12/02/2015 ultrasound. FINDINGS: Liver: Normal liver echogenicity and liver echotexture. The liver capsule is smooth. There are no focal liver masses. Normal Doppler flow in the main portal vein in the correct direction and with normal velocity and waveform. Gallbladder: Normal for contracted state. No shadowing gallstones. No gallbladder wall thickening or pericholecystic fluid. Negative sonographic Mcallister sign. Biliary tree: No intrahepatic or extrahepatic biliary ductal dilatation. The common duct at the doris hepatis measures 2.4 mm, normal. Pancreas: Sonographically normal. Right kidney: Survey imaging shows no hydronephrosis. Spleen: Normal in size and echogenicity, 10.9 cm. Free fluid: None in the right upper quadrant. Procedure Note Dorothy Orlando MD - 02/10/2019 EXAM: US ABDOMEN LIMITED RIGHT UPPER QUADRANT HISTORY: Hepatitis C. TECHNIQUE: Limited abdominal ultrasound was performed of the right upperadrant with grayscale and color Doppler imaging. COMPARISON: 12/02/2015 ultrasound. FINDINGS: Liver: Normal liver echogenicity and liver echotexture. The liver capsuleis smooth. There are no focal liver masses. Normal Doppler flow in the main portal vein in the correct direction andwith normal velocity and waveform. Gallbladder: Normal for contracted state. No shadowing gallstones. Nogallbladder wall thickening or pericholecystic fluid. Negativesonographic Mcallister sign. Biliary tree: No intrahepatic or extrahepatic biliary ductal dilatation.The common duct at the doris hepatis measures 2.4 mm, normal. Pancreas: Sonographically normal. Right kidney: Survey imaging shows no hydronephrosis. Spleen: Normal in size and echogenicity, 10.9 cm. Free fluid: None in the right upper quadrant. IMPRESSION: Normal ultrasound appearance of the liver. No liver masses. Normal Dopplerflow in the main portal vein. POS - [id number] us Ashley Velez PA-C IMBrian US ABDOMEN Final Result documented in this encounter Visit Diagnoses Diagnosis Hepatitis C virus infection without hepatic coma, unspecified chronicity Hepatitis C virus infection without hepatic coma, unspecified chronicity documented in this encounter Additional Health Concerns Assessment Noted Time PHQ-2 Depression Total Score: 0 11/04/19 19 3:01 PM EDT documented as of this encounter Care Teams Technology Program Manager Relationship Specialty Start Date End Date Kassidy Centeno, RN [address] [place] [address] [email or web address] PCP - General Internal Medicine 09/15/18 09/28/20 Unknown, Angelica, MD PCP - General 12/28/21 01/06/22 Aletha Peguero MD [email or web address] PCP - General Family Medicine 01/07/2204/28 Dagoberto Miranda DO [address] [place] [address], 2nd [place] [address] [email or web address] PCP - General Internal Medicine 04/29/23 documented as of this encounter Additional Source Comments The information contained in this document represents components of the legal health record. It is not the complete legal health record.[facility]
--- OUTSIDE RECORDS SUMMARY | 2025-04-02 14:12 | XMS_ITS | Encounter Summary ---
Author Organization [facility] Address [address] [place] [address] Phone Care Team Providers Care Mc Kay Machine Operator Name Role Phone Kassidy Centeno RNhotel operation manager Provider [phone] Unknown, Unknown Primary Care Provider Aletha Flores MD Primary Care Provider [email or web address] Dagoberto Miranda DO Primary Care Provider Encounter Details Date Type Department Care Team (Late st Contact Info) Description 01/27/2019 Ancillary Orders [facility] 30 [place] [address] Ashley Velez PA-C [address] [place] [address] [email or web address] Social History Tobacco Use Types Packs/Day Years [...] Description 04/07/2025 2:15 PM EDT Office Visit [facility] [address] [place] [address] Nadege Li, UNDRAPED ARTIST MODEL 170 [facility], [address]nd [place] [address] [email or web address] WallMehnaz, PT [address] [place] [address] [email or web address] 04/14/2025 9:45 AM EDT Office Visit [facility] [address] [place] [address] Nadege Li, UNDRAPED ARTIST MODEL 170 [facility], [address] [place] [address] [email or web address] WallMehnaz, PT [address] [place] [address] 08/06/2025 1:30 PM EST Office Visit [facility] [address] [place] [address] [place] [address] Dagoberto Miranda DO 170 [facility], [address] [place] [address] [email or web address] documented as of this encounter Visit Diagnoses Not on filedocumented in this encounter Additional Health Concerns Assessment Noted Time PHQ-2 Depression Total Score: 0 11/04/19 19 3:01 PM EDT documented as of this encounter Care Teams Mc Kay Machine Operator Relationship Specialty Start Date End Date Kassidy Cenetno RN [address] [place] [address] [email or web address] PCP - General Internal Medicine 09/15/18 09/28/20 Unknown, Angelica, PCP - General 12/28/21 01/06/22 Aletha Peguero MD [email or web address] PCP - General Family Medicine 01/07/2204/28 Dagoberto Miranda DO [address] [place] [address], 2nd [place] [address] [email or web address] PCP - General Internal Medicine 04/29/23 documented as of this encounter Additional Source Comments The information contained in this document represents components of the legal health record. It is not the complete legal health record.[facility]
--- OUTSIDE RECORDS SUMMARY | 2025-04-02 14:12 | XMS_ITS | Encounter Summary ---
Author Organization [facility] Address [address] [facility] [address] [place] [address] Phone Care Team Providers Care Immigration Paralegal Name Role Phone Norris Silverman MD Primary Care Provider [email or web address] Kassidy Centeno RNguest room attendant Provider [phone] Unknown, Unknown Primary Care Provider Aletha Flores MD Primary Care Provider [email or web address] Dagoberto Miranda DO Primary Care Provider Encounter Details Date Type Department Care Team (Late st Contact Info) Description 10/04/2017 Procedure Pass [facility], [address] [address] Social History Tobacco Use Types Packs/Day Years [...] Description 04/07/2025 2:15 PM EDT Office Visit [facility] [address] [place] [address] Nadege Li, NUCLEAR DESIGN ENGINEER [address], 2nd [place] [address] Mehnaz Wall, PT [address] [place] [address] 04/14/2025 9:45 AM EDT Office Visit [facility] [address] [place] [address] Nadege Li, NUCLEAR DESIGN ENGINEER [address] [place] [address] Davy Wallne, PT [address] [place] [address] 08/06/2025 1:30 PM EST Office Visit [address] [address] Dagoberto Miranda DO [address] [place] [address] [email or web address] documented as of this encounter Visit Diagnoses Not on filedocumented in this encounter Care Teams Immigration Paralegal Relationship Specialty Start Date End Date Norris Silverman MD [email or web address] PCP - General Family Medicine 07/18/17 09/14/18 Kassidy Centeno RN [address] [place] [address] [email or web address] PCP - General Internal Medicine 09/15/18 09/28/20 Unknown, Angelica, MD PCP - General 12/28/21 01/06/22 Aletha Peguero MD [email or web address] PCP - General Family Medicine 01/07/2204/28 Dagoberto Miranda DO [address] [place] [address] [email or web address] PCP - General Internal Medicine 04/29/23 documented as of this encounter Additional Source Comments The information contained in this document represents components of the legal health record. It is not the complete legal health record.[facility]
--- OUTSIDE RECORDS SUMMARY | 2025-04-02 14:12 | XMS_ITS | Encounter Summary ---
Author Organization [facility] Address [address] [place] [address] Phone Care Team Providers Care Cardiology Physician Assistant Name Role Phone Miranda, Dagoberto Tremaine Primary Care Provider Encounter Details Date Type Department Care Team (Late st Contact Info) Description 04/01/2025 Refill [facility] [address] [facility] [place] [address] Shelbi Guerra 170 [place], [place] [id number] [email or web address] Social History Tobacco Use Types Packs/Day Years [...] as of this encounter Progress Notes * Shelbi Guerra - 04/01/2025 12:00 PM EDT Images from the original note were not included. Patient LVM for refill of diclofenac and percocet. Rx Care Gap Status - Instructions for Clinical Staff (prescriber discretion applies): > Mismatch review guide > Check PDMP for all controlled medication requests. Visit Info Last visit: 02/02/2025 Dagoberto Miranda, [facility] > Requested f/u: Return in about 3 months (around 05/05/2025) for Recheck. Upcoming visit: 08/06/2025 Dagoberto Miranda, [facility] ACTIONS TAKEN BY Shelbi Guerra - Checked PDMP/MassPAT. Opioid Rx Protocol - oxycodone HCl/acetaminophen Controlled substance renewals are at prescriber discretion. Pain mgmt profile/toxicology (urine/saliva) may be considered annually or more frequently if indicated. In-person visit in past 2 years: Yes (Last in-person visit: 02/02/2025 (Dagoberto Miranda, [facility])) Visit in past 4 months: Yes Benzodiazepine on medication list Opioid agreement on file: No Pain management profile/toxicology in past 12 months: No NSAID Rx Protocol - Daily treatment for inflammatory arthritis/rheumatology use - diclofenac sodium Criteria met; renew for up to 12 months. Visit in the past 14 months: Yes Clinical criteria: - BMP within past year: Yes - LFTs within past year: Yes - CBC within past year: Yes Lab Results Component Value Date SODIUM 135 02/09/2025 POTASSIUM 4.2 02/09/2025 CHLORIDE 98 02/09/2025 CO2 26 02/09/2025 BUN 21 (H) 02/09/2025 CREATININE 1.00 02/09/2025 EGFR 64 02/09/2025 Lab Results Component Value Date WBC 4.38 02/09/2025 HCT 38.4 02/09/2025 HGB 12.6 02/09/2025 PLT 202 02/09/2025 Lab Results Component Value Date AST 29 02/09/2025 ALT 24 02/09/2025 ALKALINE PHOSPHATASE 85 02/09/2025 TOTAL BILIRUBIN <0.2 02/09/2025 DIRECT BILIRUBIN <0.2 10/01/2023 documented in this encounter Plan of Treatment Upcoming Encounters Date Type Department Care Team (Late st Contact Info) Description 04/07/2025 2:15 PM EDT Office Visit [address] [address] Nadege Li, BIOMASS TECHNICIAN [address] [address] Mehnaz Wall, PT [address] [place] [address] [email or web address] 04/14/2025 9:45 AM EDT Office Visit [address] [address] Nadege Li, COLIN [address] [address] Mehnaz Wall, PT [address] [place] [address] [email or web address] 08/06/2025 1:30 PM EST Office Visit [facility] [address] [place] [address] [place] [address] Dagoberto Miranda DO 170 [facility], [address] [place] [address] [email or web address] documented as of this encounter Visit Diagnoses Diagnosis Chronic bilateral low back pain with right-sided sciatica documented in this encounter Additional Health Concerns Assessment Noted Time PHQ-2 Depression Total Score: 2 10/08/19 24 8:07 AM EST documented as of this encounter Care Teams Cardiology Physician Assistant Relationship Specialty Start Date End Date Dagoberto Miranda DO [address] [place] [address], [address] [place] [address] [email or web address] PCP - General Internal Medicine 04/29/23 documented as of this encounter Additional Source Comments The information contained in this document represents components of the legal health record. It is not the complete legal health record.[facility]
--- OUTSIDE RECORDS SUMMARY | 2025-04-02 14:12 | XMS_ITS | Encounter Summary ---
Author Organization [facility] Address [address] [place] [address] Phone Care Team Providers Care Chemical Dependency Therapist Name Role Phone Dagoberto Miranda DO Primary Care Provider Reason for Visit * Reason Onset Date Comments Request For Records 01/08/2025 Encounter Details Date Type Department Care Team (Late st Contact Info) Description 01/08/2025 Telephone [facility] [address] [place] [address] Dagoberto Miranda DO [address] [place] [address] [email or web address] Request For Records Social History Tobacco Use Types Packs/Day Years [...] as of this encounter Progress Notes * Diya Suárez - 01/08/2025 9:20 AM EDT Pt called in regarding a request for medical records pertaining to a back injury. Pt stated she called in many times regarding this request. Pt stated it was related to worker's comp claim. See TE 11/10. Advised pt to reach out to medical records department. Provided numbers for imaging records and medical records and transferred pt. [facility] Central Support Rejector (Please do not reply to this user; this inbox is not monitored.) Thank you. documented in this encounter Plan of Treatment Upcoming Encounters Date Type Department Care Team (Late st Contact Info) Description 04/07/2025 2:15 PM EDT Office Visit [facility] [address] [place] [address] Nadege Li, CHUCKING LATHE OPERATOR [address] [facility], 2nd [place] [address] Mehnaz Wall, PT 380 [place] [address] [email or web address] 04/14/2025 9:45 AM EDT Office Visit [facility] [address] [place] [address] Nadege Li, CHUCKING LATHE OPERATOR [address] [facility], 2nd [place] [address] Mehnaz Wall, PT 380 [facility] [place] [address] 08/06/2025 1:30 PM EST Office Visit [facility] [address] [place] [address] [place] [address] Dagoberto Miranda DO [address] [facility], [address]nd [place] [address] [email or web address] documented as of this encounter Visit Diagnoses Not on filedocumented in this encounter Additional Health Concerns Assessment Noted Time PHQ-2 Depression Total Score: 2 10/08/19 24 8:07 AM EST documented as of this encounter Care Teams Chemical Dependency Therapist Relationship Specialty Start Date End Date Dagoberto Miranda DO [address] [place] [address], [address] [place] [address] [email or web address] PCP - General Internal Medicine 04/29/23 documented as of this encounter Additional Source Comments The information contained in this document represents components of the legal health record. It is not the complete legal health record.[facility]
--- OUTSIDE RECORDS SUMMARY | 2025-04-02 14:12 | XMS_ITS | Encounter Summary ---
Author Organization [facility] Address [address] [facility] [address] [place] [address] Phone Care Team Providers Care Pie Crimping Machine Operator Name Role Phone Kassidy Centeno RNforest manager Provider [phone] Unknown, Unknown Primary Care Provider Aletha Flores MD Primary Care Provider [email or web address] Dagoberto Miranda DO Primary Care Provider Encounter Details Date Type Department Care Team (Late st Contact Info) Description 11/04/2018 Procedure Pass [address] [place] [address] Social History Tobacco Use Types Packs/Day Years [...] Description 04/07/2025 2:15 PM EDT Office Visit [facility] [address] [place] [address] [place] [address] Nadege Li, [facility] 170 [facility], 2nd Floor [place] [address] Mehnaz Wall, PT 380 [place] [address] 04/14/2025 9:45 AM EDT Office Visit [facility] 380 [place] [address] Nadege Li, CUSTOM WOOD STAIR BUILDER [address] [place] [address] Mehnaz Wall, PT 380 [place] [address] 08/06/2025 1:30 PM EST Office Visit [facility] [address] [place] [address] Dagoberto Miranda DO [address] [place] [address] [email or web address] documented as of this encounter Visit Diagnoses Not on filedocumented in this encounter Additional Health Concerns Assessment Noted Time PHQ-2 Depression Total Score: 0 11/04/19 19 3:01 PM EDT documented as of this encounter Care Teams Pie Crimping Machine Operator Relationship Specialty Start Date End Date Kassidy Centeno RN [address] [place] [phone] PCP - General Internal Medicine 09/15/18 09/28/20 Unknown, Angelica, MD PCP - General 12/28/21 01/06/22 Aletha Peguero MD [email or web address] PCP - General Family Medicine 01/07/2204/28 Dagoberto Miranda DO [address] [place] [address] [email or web address] PCP - General Internal Medicine 04/29/23 documented as of this encounter Additional Source Comments The information contained in this document represents components of the legal health record. It is not the complete legal health record.[facility]
--- OUTSIDE RECORDS SUMMARY | 2025-04-02 14:12 | XMS_ITS | Encounter Summary ---
Author Organization [facility] Address [address] [place] [address] Drive [address] [place] [address] Phone Care Team Providers Care News Operations Manager Name Role Phone Miranda, Dagobertobryan Castillow Primary Care Provider Encounter Details Date Type Department Care Team (Late st Contact Info) Description 03/16/2024 Procedure Pass [facility] Admitting Dept Virtual Department [address] [place] [address] Social History Tobacco Use Types Packs/Day Years [...] Description 04/07/2025 2:15 PM EDT Office Visit [facility] [address] [place] [address] Nadege Li, COLIN [address] [facility], [address] [place] [address] Mehnaz Wall, PT 380 [place] [address] [email or web address] 04/14/2025 9:45 AM EDT Office Visit [facility] 380 [place] [address] Nadege Li, COUNTERSINKER [address] [facility], [address] [place] [address] Mehnaz Wall, PT 380 [place] [address] [email or web address] 08/06/2025 1:30 PM EST Office Visit [facility] [address] [place] [address] [place] [address] Dagoberto Miranda DO 170 [facility], [address] [place] [address] [email or web address] documented as of this encounter Visit Diagnoses Not on filedocumented in this encounter Additional Health Concerns Assessment Noted Time PHQ-2 Depression Total Score: 2 10/08/19 24 8:07 AM EST documented as of this encounter Care Teams News Operations Manager Relationship Specialty Start Date End Date Dagoberto Miranda DO [address] [place] [address], 2nd Floor [place] [phone] [email or web address] PCP - General Internal Medicine 04/29/23 documented as of this encounter Additional Source Comments The information contained in this document represents components of the legal health record. It is not the complete legal health record.[facility]
--- OUTSIDE RECORDS SUMMARY | 2025-04-02 14:12 | XMS_ITS | Encounter Summary ---
Author Organization [facility] Address [address] [facility] [address] [place] [address] Phone Care Team Providers Care Coffee Maker Servicer Name Role Phone Norris Silverman MD Primary Care Provider [email or web address] Kassidy Centeno RNbaked goods stock clerk Provider [phone] Unknown, Unknown Primary Care Provider Aletha Flores MD Primary Care Provider [email or web address] Dagoberto Miranda DO Primary Care Provider Encounter Details Date Type Department Care Team (Late st Contact Info) Description 07/18/2017 Procedure Pass [facility], Ct Scan - [address] [address] Social History Tobacco Use Types Packs/Day Years [...] Description 04/07/2025 2:15 PM EDT Office Visit [facility] [address] [place] [address] Nadege Li, ACCOUNT MANAGER FOREST SERVICE [address], [address]nd [place] [address] Davy Wallne, PT [address] [place] [address] 04/14/2025 9:45 AM EDT Office Visit [facility] 380 [place] [address] Nadege Li, ACCOUNT MANAGER [employer] [address] [place] [address] Davy Wallne, PT 380 [place] [address] 08/06/2025 1:30 PM EST Office Visit [address] [address] Dagoberto Miranda DO [address] [place] [address] documented as of this encounter Visit Diagnoses Not on filedocumented in this encounter Care Teams Coffee Maker Servicer Relationship Specialty Start Date End Date Norris Silverman MD [email or web address] PCP - General Family Medicine 07/18/17 09/14/18 Kassidy Centeno RN [address] [place] [address] [email or web address] PCP - General Internal Medicine 09/15/18 09/28/20 Unknown, Angelica, PCP - General 12/28/21 01/06/22 Aletha Peguero MD [email or web address] PCP - General Family Medicine 01/07/2204/28 Dagoberto Miranda DO [address] [place] [address] [email or web address] PCP - General Internal Medicine 04/29/23 documented as of this encounter Additional Source Comments The information contained in this document represents components of the legal health record. It is not the complete legal health record.[facility]
--- NOTE | 2025-04-02 14:16 | HO.SPINEOV ---
Intake Visit Reasons: Low back pain Intake Note: Mrs. Bruner is here today C/o Low back pain. 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 She is due to undergo an L3-4, L4-5 trans Kambin lumbar interbody fusion for back pain and leg pain. For various reasons which I believe to be were insurance related the surgery was unable to be performed. In the interim she returns for a follow-up. She reports that she really has no back pain now. She continues to have bilateral lower extremity pain and she localizes it to the front of her knees radiating down her tibial region. She has nothing coming down from the buttock area to the posterolateral thighs. There is tingling and numbness in the bottom of her right foot. She reports footdrop for the last year in the left foot. She is a diabetic but tells me that her A1c generally runs in the 4 range so she is very well controlled. On exam, she is able to stand and walk independently. Motor examination reveals she does have weakness of her left dorsiflexion which is 0/5 and plantar flexion is also about 3/5. Proximal strength on the left leg is normal. Strength on the right side is normal. Reflexes are absent. I went back and reviewed her [place] lumbar MRI again which showed degenerative disc disease at L3-4 and L4-5. She has foraminal stenosis in the right L4 foramen and in the left L3 foramen. There was no meaningful central canal stenosis. I am a bit confused to explain her current set of symptoms based on her imaging. She does not have classic stenosis type symptoms. Her footdrop is on the opposite side of where she has the foraminal stenosis in the L4 foramen. She also has multi myotome weakness in the left foot which would not be able to be explained by a left L3 stenosis. Therefore, I think we should get an EMG to be a little more clear about whether this could be somehow diabetic polyneuropathy related versus something coming from the lumbar origin. She did have a more recent lumbar MRI done at [facility] so she is going to bring this into our office when she comes back in follow up to review the EMG. Total amount of time spent in this visit was 20 minutes in discussion of symptoms, lumbar imaging results and subsequent plan of care Petar Meraz MD,PhD [facility] Orders: Orders NE electromyogram (EMG) Today M21.372 - Foot drop, left foot, M54.16 - Radiculopathy, lumbar region Coding Level of Care Code Est Pt Level 3 (56743) Diagnoses Lumbar radiculopathy M54.16 Left foot drop M21.372
== END 2025-04-02 14:29 | disposition home or self-care (01) ==
LOC: HO.HNS 14:09
PROVIDERS: PCP Pediatrics; Visit Provider Physician Assistant
DX: M54.16 Radiculopathy, lumbar region (principal); M21.372 Foot drop, left foot
CPT/HCPCS: 99213

== ENCOUNTER → 2025-04-02 14:08 | Outpatient (BNVA) | payer MEDICAID, SELFPAY | PROVIDERS: PCP Pediatrics; Visit Provider Physician Assistant | DX: M54.16 Radiculopathy, lumbar region (principal); M21.372 Foot drop, left foot | CPT/HCPCS: 99212 ==

== ENCOUNTER 2025-04-20 09:47 | Outpatient (AMB) | payer MEDICAID, SELFPAY ==
[2025-04-20 09:49] VITALS: BP 116/74; PULSE 69; O2SAT 97; BMI 21.6
--- NOTE | 2025-04-20 09:49 | A.OFFVIS_ITS ---
Vital Signs 04/20/25 09:49 Height 5 ft 5 in Weight 130 lb 1.164 oz BMI 21.6 BP 116/74 Blood Pressure Location Rt brachial Position Sitting Pulse 69 Pulse Source Pulse Oximeter Pulse Oximetry (%) 97 Oxygen Delivery Method Room Air Intake Visit Reasons: Diabetes Type 1 Intake Note: NEW Patient presents today to establish treatment for Type 1 Diabetes Mellitus: Last Diabetic eye exam was on: 10/2024, [facility], had cataracts surgery Last Podiatry exam was on: Patient does not see a Multigraph Operator Most recent HbA1c: 5.8%, 02/09/2025, blood work drawn at PCP Random Glucose: 166 mg/dL Cooker Mechanic Required: No Accompanied by: Self / Same As Patient Allergies No Known Allergies Allergy (Verified 04/20/25 09:49) HPI Comments Details: History of Present Illness - Past medical history: - Hypertension, Hepatitis C (treated) - Date and context of diagnosis: Diagnosed approximately a year and a half ago after experiencing lightheadedness at work and subsequently measured blood glucose of 601 mg/dL. - Presenting symptoms: Weight loss, increased thirst, polyuria. - Recent blood glucose values: Patient did not bring meter, reports that her blood glucose are typically under 200 mg/dL; occasional spikes over 200 mg/dL, occurring rarely. - Reports hypoglycemia sporadically (1-3 times per month, lowest value 65, she does not experience symptoms of hypoglycemia) - Recent A1C: Initially 17.5%, currently around 5.0%. - Precipitating factors: None identified. - Family history of diabetes or autoimmune disease: Brother with Type 2 diabetes. - Previously seen by Dr. Miranda (PCP) at [facility], last visit 02/02/2025. - Current medications: 30 units of Lantus daily, no mealtime insulin - review of records shows diagnosis of type 1 diabetes, no sina 65 or ZNT8 antibodies. Patient denies history of ketoacidosis Physical exam General: Alert, well-nourished, no acute distress. Neck: Supple, no thyromegaly Cardiac:Regular rate and rhythm, no murmurs. Peripheral pulses 1+, no edema. Lungs: Clear to auscultation bilaterally. Abdomen: Soft, non-tender, no organomegaly. No lipohypertrophy. Extremities: No ulcers, lesions, or edema Neuro: Alert, oriented. Cranial nerves intact. sensation normal to monofilament testing in toes, plantar areas sensation decreased, but patient noted to have calluses. Skin: Warm, intact. No rashes or ulcers. Labs Today in office blood glucose was 166 02/09/2025 Creatinine 1.0 GFR 64 A1c 5.8 TSH 0.81 [facility] Medical History (Updated 04/20/25 @ 10:57 by Junior Bhatt MD) History of trigger finger GERD (gastroesophageal reflux disease) Anxiety Numbness Neuropathy Diabetes Lumbar radiculopathy Hepatitis C Arthritis DJD (degenerative joint disease) Surgical History (Updated 04/20/25 @ 09:57 by PANTERA Womack) Hx of cataract surgery Hx of oral surgery History of carpal tunnel release of both wrists History of surgical removal of pilonidal cyst H/O colonoscopy Social History Are you a primary care support representative to a significant other at home: No Do you presently have visiting nurse or other home services: No Alcohol intake: current Alcohol intake frequency: 0-2 drinks per day Patient Tobacco Use Status: Current everyday Tobacco user Tobacco use type: Cigarette Cigarettes Per Day: 4 Current occupational status: employed 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 Physical Exam Vital Signs: Last Vital Signs Pulse 69 04/20/25 09:49 BP 116/74 04/20/25 09:49 Pulse Ox 97 04/20/25 09:49 Oxygen Delivery Method Room Air 04/20/25 09:49 BMI result Body Mass Index 21.6 Results Reviewed Results Reviewed: Laboratory Last Values Glucose (Clinic) 166 mg/dL (60-115) H 04/20/25 09:57 Assessment & Plan Assessment & Plan (1) Type 1 diabetes mellitus: Code(s): E10.9 - Type 1 diabetes mellitus without complications Category: Medical Plan Assessment - Diagnosed with Type 1 diabetes, no antibodies, no history of DKA, family history of type 2 diabetes, points more towards type 2 diabetes. If patient does actually have type 1 diabetes she might currently be in the honeymoon phase with good glucose control on Lantus alone. Recent A1c in February 2025 was 5.8%. No renal or thyroid dysfunction. Plan - Discussed Type 1 diabetes diagnosis and management. - will order sina 65, ZnT8 a antibodies and screening for celiac disease. We will obtain lipid panel. - Emphasized importance of lifestyle modifications, including diet and exercise. - SMBG encouraged four times daily. Strongly advised the patient to bring meter/glucose logs next visit for better assessment of her diabetes control. - Continue Lantus 30 units daily. - Discussed possible need for mealtime insulin in the future. - Ophthalmology: Last eye exam with cataract removal in October 2024, she was told she was not have diabetic retinopathy - Podiatry: Referral suggested. - Diabetes education: Referral to prosthodontist/educator. - Schedule follow-up in 3 months. Orders: Orders Glutamic acid decarboxylase Ab Today E10.9 - Type 1 diabetes mellitus without complications ZNT8 Antibodies Today E10.9 - Type 1 diabetes mellitus without complications Celiac Disease Panel Today E10.9 - Type 1 diabetes mellitus without complications Referrals Diabetes Education Referral E10.9 - Type 1 diabetes mellitus without complications Coding Level of Care Code New Pt Level 4 (86094) Diagnoses Type 1 diabetes mellitus E10.9 Time Spent (min) 45 Comment Time spent on review of previous records, history, exam/plan and patient education.
[2025-04-20 10:02] LABS: Glucose, Whole Blood 166 mg/dL (60-115)
--- OUTSIDE RECORDS SUMMARY | 2025-04-20 12:34 | XMS_ITS | Encounter Summary ---
Author Organization [facility] Address [address] [place] [address] [place] [address] Phone Care Team Providers Care Election Judge Name Role Phone Kassidy Centeno RNseat nailer Provider [phone] Unknown, Unknown Primary Care Provider Aletha Flores MD Primary Care Provider [email or web address] Dagoberto Miranda DO Primary Care Provider Encounter Details Date Type Department Care Team (Late st Contact Info) Description 01/27/2019 Ancillary Orders [facility] [address] [place] [address] Ashley Velez PA-C [address] [place] [address] [email or web address] Social History Tobacco Use Types Packs/Day Years [...] st Contact Info) Description 02/02/2025 Procedure Pass [address] Rudolph [place] [address] 02/02/2025 Procedure Pass [address] Rudolph [place] [address] 05/20/2025 9:30 AM EDT Appointment [address] Rudolph [place] [address] Dagoberto Miranda, DO [address] [place] [address], 2nd Floor SERGEI Rudolph [address] 05/20/2025 10:00 AM EDT Appointment [address] Rudolph [place] [address] Dagoberto Miranda, DO [address] [place] [address], 2nd [facility] SERGEI Rudolph [address] 08/06/2025 1:30 PM EST Office Visit [facility] [address] [place] [address] Dr Rudolph [place]I [address] Dagoberto Miranda, DO [address] [place] [address], [address] [place] [address] SERGEI Rudolph [address] documented as of this encounter Visit Diagnoses Not on filedocumented in this encounter Additional Health Concerns Assessment Noted Time PHQ-2 Depression Total Score: 0 11/04/19 19 3:01 PM EDT documented as of this encounter Care Teams Election Judge Relationship Specialty Start Date End Date Kassidy Centeno RN [address] [place] [address] [email or web address] PCP - General Internal Medicine 09/15/18 09/28/20 Unknown, Unknown, PCP - General 12/28/21 01/06/22 Aletha Peguero MD PCP - General Family Medicine 01/07/2204/28 Dagoberto Miranda DO [address] [place] [address], 2nd [place] [address] [email or web address] PCP - General Internal Medicine 04/29/23 documented as of this encounter Additional Source Comments The information contained in this document represents components of the legal health record. It is not the complete legal health record.[facility]
--- OUTSIDE RECORDS SUMMARY | 2025-04-20 12:34 | XMS_ITS | Encounter Summary ---
Author Organization [facility] Address [address] [place] [address] Drive [address] [place] [address] Phone Care Team Providers Care Deputy Clerk Name Role Phone Miranda, Dagobertobryan Penaloza DO Primary Care Provider Encounter Details Date Type Department Care Team (Late st Contact Info) Description 02/02/2025 Procedure Pass [facility], [address] [address] Social History Tobacco Use Types Packs/Day Years [...] st Contact Info) Description 02/02/2025 Procedure Pass [address] [place] [address] 02/02/2025 Procedure Pass [address] [place] [address] 05/20/2025 9:30 AM EDT Appointment [address] [place] [address] Dagoberto Miranda, DO [address] [place] [address], 2nd [facility] [place] [address] 05/20/2025 10:00 AM EDT Appointment [address] [place] [address] Dagoberto Miranda, [address] [place] [address], [address] [place] [address] Ronni SERGEI [address] 08/06/2025 1:30 PM EST Office Visit [facility] [address] [place] [address] [place] [address] Dagoberto Miranda, [address] [place] [address], [address] [place] [address] [place] haider [address] documented as of this encounter Visit Diagnoses Not on filedocumented in this encounter Additional Health Concerns Assessment Noted Time PHQ-2 Depression Total Score: 2 10/08/19 24 8:07 AM EST documented as of this encounter Care Teams Deputy Clerk Relationship Specialty Start Date End Date Dagoberto Miranda DO [address] [place] [address], 2nd Floor [place] [id number] [email or web address] PCP - General Internal Medicine 04/29/23 documented as of this encounter Additional Source Comments The information contained in this document represents components of the legal health record. It is not the complete legal health record.[facility]
--- OUTSIDE RECORDS SUMMARY | 2025-04-20 12:34 | XMS_ITS | Encounter Summary ---
Author Organization [facility] Address [address] [place] [address] [place] [address] Phone Care Team Providers Care Salesperson Women'S Hats Name Role Phone Kassidy Centeno RNjava j2ee software engineer Provider [phone] Unknown, Unknown Primary Care Provider Aletha Flores MD Primary Care Provider [email or web address] Dagoberto Miranda DO Primary Care Provider Encounter Details Date Type Department Care Team (Latest Contact Info) Description 02/17/2019 Transcribe Orders [facility] 2nd [place] [address] Ashley Velez PA-C [address] [place] [address] [email or web address] Hepatitis C virus infection without hepatic coma, [...] st Contact Info) Description 02/02/2025 Procedure Pass [address] Rudolph [place] [address] 02/02/2025 Procedure Pass [address] Rudolph [place] [address] 05/20/2025 9:30 AM EDT Appointment [address] Rudolph [place] [address] Dagoberto Miranda, DO [address] [place] [address], 2nd [facility] [place] [address] 05/20/2025 10:00 AM EDT Appointment [address] Rudloph [place] [address] Dagoberto Miranda, DO [address] [place] [address], [address] [place] [address] [place] [address] 08/06/2025 1:30 PM EST [facility] [address] [place] [address] Dr Rudolph [place]GE[place] [address] Dagoberto Miranda, DO [address] [place] [address], [address] [place], [place] [address], [place] [address] documented as of this encounter Results * (ABNORMAL) Hepatitis C genotyping (02/17/2019 2:12 PM EDT) HCV GENOTYPE 1a(A) Undetected [facility]PERIOR Comment: (NOTE) ADDITIONAL INFORMATION This test was performed using the [employer] RealTime HCV Genotype II assay ([employer] [place], [place]). Blood (Blood) 02/17/2019 2:1 2 PM EDT 02/17/2019 2:18 PM EDT us Ashley ZULUAGA-Julisa NON CULTURE MICROBIOLOGY Final Result [facility]PATH [address] DR Rodriguez[address] [place] [address] * Hepatitis B surface antigen (02/17/2019 2:12 PM EDT) HBV SURFACE ANTIGEN Negative Negative [facility] Blood 02/17/2019 2:12 PM EDT 02/17/2019 2:18 PM EDT us Ashley ZULUAGA-C LAB BLOOD ORDERABLES Final Resu lt Performing Organization Address [facility] Co de Phone Number [facility] [address] [place] [address] documented in this encounter Visit Diagnoses Diagnosis Hepatitis C virus infection without hepatic coma, unspecified chronicity- Primary documented in this encounter Additional Health Concerns Assessment Noted Time PHQ-2 Depression Total Score: 0 11/04/19 19 3:01 PM EDT documented as of this encounter Care Teams Salesperson Women'S Hats Relationship Specialty Start Date End Date Kassidy Centeno RN [address] [place] [address] [email or web address] PCP - General Internal Medicine 09/15/18 09/28/20 Unknown, Angelica, PCP - General 12/28/21 01/06/22 Aletha Peguero MD [email or web address] PCP - General Family Medicine 01/07/2204/28 Dagoberto Miranda DO [address] [place] [address], 2nd [place] [address] [email or web address] PCP - General Internal Medicine 04/29/23 documented as of this encounter Additional Source Comments The information contained in this document represents components of the legal health record. It is not the complete legal health record.[facility]
--- OUTSIDE RECORDS SUMMARY | 2025-04-20 12:34 | XMS_ITS | Encounter Summary ---
Author Organization [facility] Address [address] [place] [address] [place] [address] Phone Care Team Providers Care Inside Technical Sales Representative Name Role Phone Kassidy Centeno RNengagement mgr Provider [phone] Unknown, Unknown Primary Care Provider Aletha Flores MD Primary Care Provider [email or web address] Dagoberto Miranda DO Primary Care Provider Encounter Details Date Type Department Care Team (Late st Contact Info) Description 10/16/2018 Ancillary Orders Virtual Department 30 [place] [address] Ashley Velez PA-C [address] [place] [address] [email or web address] Hepatitis C virus infection without hepatic coma, [...] st Contact Info) Description 02/02/2025 Procedure Pass [address] Rudolph [place] [address] 02/02/2025 Procedure Pass [address] Rudolph [place] [address] 05/20/2025 9:30 AM EDT Appointment [address] Rudolph [place] [address] Dagoberto Miranda, DO [address] [place] [address], 2nd [place] [address] 05/20/2025 10:00 AM EDT Appointment [address] Rudolph [place] [address] Dagoberto Miranda, DO [address] [place] [address], 2nd [place] [address] 08/06/2025 1:30 PM EST Office Visit [facility] [address] [place] [address] Dr Rudolph [place]I [address] Dagoberto Miranda, DO [address] [place] [address], 2nd [place] [address] documented as of this encounter Visit Diagnoses Diagnosis Hepatitis C virus infection without hepatic coma, unspecified chronicity documented in this encounter Care Teams Inside Technical Sales Representative Relationship Specialty Start Date End Date Kassidy Centeno RN [address] [place] [address] PCP - General Internal Medicine 09/15/18 09/28/20 Unknown, Angelica, PCP - General 12/28/21 01/06/22 Aletha Peguero MD [email or web address] PCP - General Family Medicine 01/07/2204/28 Dagoberto Miranda DO [address] [place] [address], 2nd [place] [address] [email or web address] PCP - General Internal Medicine 04/29/23 documented as of this encounter Additional Source Comments The information contained in this document represents components of the legal health record. It is not the complete legal health record.[facility]
--- OUTSIDE RECORDS SUMMARY | 2025-04-20 12:34 | XMS_ITS | Encounter Summary ---
Author Organization [facility] Address [address] [place] [address] [place] [address] Phone Care Team Providers Care Lace Finisher Name Role Phone Kassidy Centeno RNproposal manager writer Provider [phone] Unknown, Unknown Primary Care Provider Aletha Flores MD Primary Care Provider [email or web address] Dagoberto Miranda DO Primary Care Provider Encounter Details Date Type Department Care Team (Late st Contact Info) Description 01/27/2019 Ancillary Orders Virtual Department 30 [place] [address] Ashley Velez PA-C [address] [place] [address] [email or web address] Hepatitis C virus infection without hepatic coma, [...] st Contact Info) Description 02/02/2025 Procedure Pass [address] Rudolph [place] [address] 02/02/2025 Procedure Pass [address] Rudolph [place] [address] 05/20/2025 9:30 AM EDT Appointment [address] Rudolph [place] [address] Dagoberto Miranda, DO [address] [place] [address], 2nd [place] [address] 05/20/2025 10:00 AM EDT Appointment [address] Rudolph [place] [address] Dagoberto Miranda, [address], 2nd [place] [address] 08/06/2025 1:30 PM EST Office Visit [facility] [address] [place] [address] Dr Rudolph [place]I [address] Dagoberto Miranda, [address], 2nd [place] [address] documented as of this encounter Results * US ABDOMEN LIMITED RIGHT UPPER QUADRANT (02/10/2019 10:23 AM EDT) Anatomical Region Laterality Modality Abdomen Ultrasound 02/10/2019 1:02 PM EDT Impressions 02/10/2019 1:25 PM EDT Normal ultrasound appearance of the liver. No liver masses. Normal Doppler flow in the main portal vein. POS - [id number] Narrative 02/10/2019 1:25 PM EDT EXAM: US [...] abdominal ultrasound was performed of the right upperquadrant with grayscale and color Doppler imaging. COMPARISON: [...] in the main portal vein. POS - [id number] us Ashley Velez PA-C IMG US ABDOMEN Final Result documented in this encounter Visit Diagnoses Diagnosis Hepatitis C virus infection without hepatic coma, unspecified chronicity Hepatitis C virus infection without hepatic coma, unspecified chronicity documented in this encounter Additional Health Concerns Assessment Noted Time PHQ-2 Depression Total Score: 0 11/04/19 19 3:01 PM EDT documented as of this encounter Care Teams Lace Finisher Relationship Specialty Start Date End Date Kassidy Centeno RN [address] [place] [address] [email or web address] PCP - General Internal Medicine 09/15/18 09/28/20 Unknown, Unknown, PCP - General 12/28/21 01/06/22 Aletha Peguero MD [email or web address] PCP - General Family Medicine 01/07/2204/28 Dagoberto Miranda DO [address] [place] [address], 2nd [place] [address] [email or web address] PCP - General Internal Medicine 04/29/23 documented as of this encounter Additional Source Comments The information contained in this document represents components of the legal health record. It is not the complete legal health record.[facility]
--- OUTSIDE RECORDS SUMMARY | 2025-04-20 12:34 | XMS_ITS | Encounter Summary ---
Author Organization [facility] Address [address] [place] [address] [address] [place] [address] Phone Care Team Providers Care Tool Maintenance Worker Name Role Phone Miranda, Dagoberto Tremaine Primary Care Provider Encounter Details Date Type Department Care Team (Late st Contact Info) Description 10/01/2023 Procedure Pass [facility], Ct Scan - [facility] [address] [place] [address] Social History Tobacco Use Types Packs/Day Years [...] 10/01/2023 10:01 AM Denia Tuttle RN * [place] Suicide Severity Rating Scale (Screener/Recent Self-Report) Question [...] st Contact Info) Description 02/02/2025 Procedure Pass [address] [place] [address] 02/02/2025 Procedure Pass [address] [place] [address] 05/20/2025 9:30 AM EDT Appointment [address] [place] [address] Dagoberto Miranda, DO [address] [place] [address], [address] [place] [address] [place] [address] 05/20/2025 10:00 AM EDT Appointment [address] [place] [address] Dagoberto Miranda, DO [address] [place] [address], 2nd [facility] [place] [address] 08/06/2025 1:30 PM EST Office Visit [facility] [address] [place] [address] [place] [address] Dagoberto Miranda, DO [address] [place] [address], 2nd [facility] [place] [address] documented as of this encounter Visit Diagnoses Not on filedocumented in this encounter Additional Health Concerns Assessment Noted Time PHQ-2 Depression Total Score: 1 01/04/20 22 10:37 AM EDT documented as of this encounter Care Teams Tool Maintenance Worker Relationship Specialty Start Date End Date Dagoberto Miranda DO [address] [place] [address], 2nd [place] [address] [email or web address] PCP - General Internal Medicine 04/29/23 documented as of this encounter Additional Source Comments The information contained in this document represents components of the legal health record. It is not the complete legal health record.[facility]
--- OUTSIDE RECORDS SUMMARY | 2025-04-20 12:34 | XMS_ITS | Encounter Summary ---
Author Organization [facility] Address [address] [place] [address] [place] [address] Phone Care Team Providers Care Awning Maker Name Role Phone Kassidy Centeno RNfarmworker general Provider [phone] Unknown, Unknown Primary Care Provider Aletha Flores MD Primary Care Provider [email or web address] Dagoberto Miranda DO Primary Care Provider Encounter Details Date Type Department Care Team (Late st Contact Info) Description 11/04/2018 Procedure Pass [address] [place] [address] Social History Tobacco Use Types Packs/Day Years [...] st Contact Info) Description 02/02/2025 Procedure Pass [address] [place] [address] 02/02/2025 Procedure Pass [address] [place] [address] 05/20/2025 9:30 AM EDT Appointment [address] Rudolph [place] [address] Dagoberto Miranda, [address] [place] [address] [place] [address] 05/20/2025 10:00 AM EDT Appointment [address] Rudolph [place] [address] Dagoberto Miranda DO [address] [place] [address] [place] [address] 08/06/2025 1:30 PM EST Office Visit [facility] [address] [place] [address] Dr Rudolph SERGEI [address] Dagoberto Miranda DO [address] [place] [address] [place] [address] documented as of this encounter Visit Diagnoses Not on filedocumented in this encounter Additional Health Concerns Assessment Noted Time PHQ-2 Depression Total Score: 0 11/04/19 19 3:01 PM EDT documented as of this encounter Care Teams Awning Maker Relationship Specialty Start Date End Date Kassidy Centeno RN [address] [place] [address] PCP - General Internal Medicine 09/15/18 09/28/20 Unknown, Unknown, PCP - General 12/28/21 01/06/22 Aletha Peguero MD [email or web address] PCP - General Family Medicine 01/07/2204/28 Dagoberto Miranda DO [address] [place] [address], [address] [place], [place] [address] [address] [email or web address] PCP - General Internal Medicine 04/29/23 documented as of this encounter Additional Source Comments The information contained in this document represents components of the legal health record. It is not the complete legal health record.[facility]
--- OUTSIDE RECORDS SUMMARY | 2025-04-20 12:34 | XMS_ITS | Encounter Summary ---
Author Organization [facility] Address [address] [place] [address] [place] [address] Phone Care Team Providers Care Chief Client Officer Name Role Phone Norris Silverman MD Primary Care Provider [email or web address] Kassidy Centeno RNvacuum drier tender Provider [phone] Unknown, Unknown Primary Care Provider Aletha Flores MD Primary Care Provider [email or web address] Dagoberto Miranda DO Primary Care Provider Reason for Referral * MRI/CAT Scan - Closed Specialty Diagnoses / Procedures Referred By Elia messina Referred To Contact Radiology Diagnoses Lumbar radiculopathy Procedures MRI Lumbar Spine Solomon Mason NP Phone: tel: fax: [email or web address] om Referral ID Status Reason Start Date Expiration Date Visits Re quested Visits Authorized [id number] Closed 10/01/2017 11/30/2017 1 1 Encounter Details Date Type Department Care Team (Latest Contact Info) Description 10/04/2017 Ancillary Orders [facility] Department [address] [place] [address] Solomon Mason NP [address] [place] [address] [email or web address] Lumbar radiculopathy Social History Tobacco Use [...] st Contact Info) Description 02/02/2025 Procedure Pass [address] [place] [address] 02/02/2025 Procedure Pass [address] [place] [address] 05/20/2025 9:30 AM EDT Appointment [address] [place] [address] Dagoberto Miranda, DO [address] [place] [address], 2nd [facility] SERGEI Rudolph [address] [email or web address] 05/20/2025 10:00 AM EDT Appointment [address] [place] [address] Dagoberto Miranda, DO [address] [place] [address], [address] [place] [address] [place] [address] [email or web address] 08/06/2025 1:30 PM EST Office Visit [facility] [address] [place] [address] [place] [address] Dagoberto Miranda, DO [address] [place] [address], [address] [place] [address] [place] [address] documented as of this encounter Results * [...] of clear concern are identified within the aieuf-ne-okmr. Conus appears to be present at L1. [...] of clear concern are identified within the sbpwg-qc-okrn.Conus appears to be present at L1. No [...] Mehreen Leo on 10/18/2017 4:18 PM Solomon Mason PHOTOGRAPH PRINTER IMG MR XSPECIALTY Final R esult documented in this encounter Visit Diagnoses Diagnosis Lumbar radiculopathy Thoracic or lumbosacral neuritis or radiculitis, unspecified Lumbar radiculopathy Thoracic or lumbosacral neuritis or radiculitis, unspecified documented in this encounter Care Teams Chief Client Officer Relationship Specialty Start Date End Date Norris Silverman MD [email or web address] PCP - General Family Medicine 07/18/17 09/14/18 Kassidy Centeno RN [address] [place] [address] [email or web address] PCP - General Internal Medicine 09/15/18 09/28/20 Unknown, Angelica, PCP - General 12/28/21 01/06/22 Aletha Peguero MD [email or web address] PCP - General Family Medicine 01/07/2204/28 Dagoberto Miranda DO [address] [place] [address], 2nd [place] [address] [email or web address] PCP - General Internal Medicine 04/29/23 documented as of this encounter Additional Source Comments The information contained in this document represents components of the legal health record. It is not the complete legal health record.[facility]
--- OUTSIDE RECORDS SUMMARY | 2025-04-20 12:34 | XMS_ITS | Encounter Summary ---
Author Organization [facility] Address [address] [place] [address] Phone Care Team Providers Care Data Abstractor Name Role Phone Dagoberto Miranda DO Primary Care Provider Reason for Visit * Reason Onset Date Comments Referral 04/13/2025 Encounter Details Date Type Department Care Team (Late st Contact Info) Description 04/13/2025 Telephone [facility] [address] [place] [address] [place] [address] Dagoberto Miranda DO [address] [place] [address] [email or web address] Referral Social History Tobacco Use Types Packs/Day Years [...] as of this encounter Progress Notes * Jacobo Murrieta RN - 04/13/2025 11:52 AM EDT Spoke with Cele to clarify reason for referral. States she is applying for social security and was told she will need to see a psychiatrist. Cele states they weren't specific as to to why they wanted her to see . She is requesting refill for cyclobenzaprine and percocet. * Candida Cao - 04/13/2025 8:21 AM EDT CD PEN Top Smart Phrases: Referral Request 1. Name of the office where the patient has been seen/requests to be seen: [facility] 2. Reason for referral/specialist appointment and the diagnosis code: pt said she need Evaluation for SSI 2A. Have you seen this provider before for this same problem? 2B. If this is a new problem, is your PCP aware of your symptoms? 3. Date of appointment(s): 4. Name of specialist provider: 5. NPI number to enter for referral authorization (enter n/a if not available): 6. Number of visits requested for referral: 7. Fax number of specialist office to send referral authorization: documented in this encounter Plan of Treatment Upcoming Encounters Date Type Department Care Team (Late st Contact Info) Description 02/02/2025 Procedure Pass [address] [place] [address] 02/02/2025 Procedure Pass [address] [place] [address] 05/20/2025 9:30 AM EDT Appointment [address] [place] [address] Dagoberto Miranda, [address] [place] [address], 2nd [facility] [place] [address] [email or web address] 05/20/2025 10:00 AM EDT Appointment [address] [place] [address] Dagoberto Miranda, [address] [place] [address], [address] [place] [address] [place] [address] [email or web address] 08/06/2025 1:30 PM EST Office Visit [facility] [address] [place] [address] [place] [address] Dagoberto Miranda, [address] [place] [address], [address] [place] [address] [place] [address] [email or web address] documented as of this encounter Visit Diagnoses Diagnosis Depression- Primary Depressive disorder, not elsewhere classified Chronic bilateral low back pain with right-sided sciatica documented in this encounter Additional Health Concerns Assessment Noted Time PHQ-2 Depression Total Score: 2 10/08/19 24 8:07 AM EST documented as of this encounter Care Teams Data Abstractor Relationship Specialty Start Date End Date Dagoberto Miranda DO [address] [place] [address], 2nd [facility] [place] [address] [email or web address] PCP - General Internal Medicine 04/29/23 documented as of this encounter Additional Source Comments The information contained in this document represents components of the legal health record. It is not the complete legal health record.[facility]
--- OUTSIDE RECORDS SUMMARY | 2025-04-20 12:34 | XMS_ITS | Encounter Summary ---
Author Organization [facility] Address [address] [place] [address] [place] [address] Phone Care Team Providers Care Senior Consulting Manager Name Role Phone Norris Silverman MD Primary Care Provider [email or web address] [email or web address] RNauditing control clerk Provider [phone] Unknown, Unknown Primary Care Provider Aletha Flores MD Primary Care Provider [email or web address] Dagoberto Miranda DO Primary Care Provider Encounter Details Date Type Department Care Team (Late st Contact Info) Description 07/18/2017 Procedure Pass [facility], Ct Scan - [address] [address] Social History Tobacco Use Types Packs/Day Years [...] st Contact Info) Description 02/02/2025 Procedure Pass [address] [place] [address] 02/02/2025 Procedure Pass [address] [place] [address] 05/20/2025 9:30 AM EDT Appointment [address] [place] [address] Dagoberto Miranda DO [address] [place] [address], [address] [place] [address] 05/20/2025 10:00 AM EDT Appointment [address] [place] [address] Dagoberto Miranda DO [address] [place] [address] 08/06/2025 1:30 PM EST Office Visit [facility] [address] [place] [address] Dagoberto Miranda DO [address] [place] [address] documented as of this encounter Visit Diagnoses Not on filedocumented in this encounter Care Teams Senior Consulting Manager Relationship Specialty Start Date End Date Norris Silverman MD [email or web address] PCP - General Family Medicine 07/18/17 09/14/18 Kassidy Centeno RN [address] [place] [address] PCP - General Internal Medicine 09/15/18 09/28/20 Unknown, Angelica, PCP - General 12/28/21 01/06/22 Aletha Peguero MD [email or web address] PCP - General Family Medicine 01/07/2204/28 Dagoberto Miranda DO [address] [place] [address] [email or web address] PCP - General Internal Medicine 04/29/23 documented as of this encounter Additional Source Comments The information contained in this document represents components of the legal health record. It is not the complete legal health record.[facility]
--- OUTSIDE RECORDS SUMMARY | 2025-04-20 12:34 | XMS_ITS | Encounter Summary ---
Author Organization [facility] Address [address] [place] [address] [place] [address] Phone Care Team Providers Care News Producer Name Role Phone Norris Silverman MD Primary Care Provider [email or web address] RNrelief [email or web address] Provider [phone] Unknown, Unknown Primary Care Provider Aletha Flores MD Primary Care Provider [email or web address] Dagoberto Miranda DO Primary Care Provider Encounter Details Date Type Department Care Team (Late st Contact Info) Description 10/04/2017 Procedure Pass [address] [address] Social History Tobacco Use Types Packs/Day Years [...] st Contact Info) Description 02/02/2025 Procedure Pass [address] [place] [address] 02/02/2025 Procedure Pass [address] [place] [address] 05/20/2025 9:30 AM EDT Appointment [address] [place] [address] Dagoberto Miranda DO [address] [place] [address], [address] [place], [place] [address] [address] 05/20/2025 10:00 AM EDT Appointment [address] [place] [address] Dagoberto Miranda DO [address] [place] [address] 08/06/2025 1:30 PM EST Office Visit [facility] [address] [place] [address] Dagoberto Miranda DO [address] [place] [address], [address] [place] [address] documented as of this encounter Visit Diagnoses Not on filedocumented in this encounter Care Teams News Producer Relationship Specialty Start Date End Date Norris Silverman MD [email or web address] PCP - General Family Medicine 07/18/17 09/14/18 Kassidy Centeno RN [address] [place] [address] PCP - General Internal Medicine 09/15/18 09/28/20 Unknown, Angelica, PCP - General 12/28/21 01/06/22 Aletha Peguero MD [email or web address] PCP - General Family Medicine 01/07/2204/28 Dagoberto Miranda DO [address] [place] [address] [email or web address] PCP - General Internal Medicine 04/29/23 documented as of this encounter Additional Source Comments The information contained in this document represents components of the legal health record. It is not the complete legal health record.[facility]
--- OUTSIDE RECORDS SUMMARY | 2025-04-20 12:35 | XMS_ITS | Encounter Summary ---
Author Organization [facility] Address [address] [place] [address] Drive [address] [place] [address] Phone Care Team Providers Care Diagnostic Imaging Manager Name Role Phone Miranda, Dagobertobryan Castillow Primary Care Provider Encounter Details Date Type Department Care Team (Late st Contact Info) Description 05/04/2024 Procedure Pass [facility] Endoscopy Admitting Dept Virtual Department [address] [place] [address] Social History Tobacco Use Types Packs/Day Years [...] st Contact Info) Description 02/02/2025 Procedure Pass [address] [place] [address] 02/02/2025 Procedure Pass [address] [place] [address] 05/20/2025 9:30 AM EDT Appointment [address] [place] [address] Dagoberto Miranda, DO [address] [place] [address], [address] [place] [address] [place] [address] [email or web address] 05/20/2025 10:00 AM EDT Appointment [address] [place] [address] Dagoberto Miranda, DO [address] [place] [address], [address] [place] [address] [place] [address] [email or web address] 08/06/2025 1:30 PM EST Office Visit [facility] [address] [place] [address] [place] [address] Dagoberto Miranda, [address] [place] [address], [address] [place] [address] [place] [address] [email or web address] documented as of this encounter Visit Diagnoses Not on filedocumented in this encounter Additional Health Concerns Assessment Noted Time PHQ-2 Depression Total Score: 2 10/08/19 24 8:07 AM EST documented as of this encounter Care Teams Diagnostic Imaging Manager Relationship Specialty Start Date End Date Dagoberto Miranda DO [address] [place] [address], [address] Floor [place] [phone] [email or web address] PCP - General Internal Medicine 04/29/23 documented as of this encounter Additional Source Comments The information contained in this document represents components of the legal health record. It is not the complete legal health record.[facility]
--- OUTSIDE RECORDS SUMMARY | 2025-04-20 12:35 | XMS_ITS | Encounter Summary ---
Author Organization [facility] Address [address] [place] [address] Drive [address] [place] [address] Phone Care Team Providers Care Cleaning And Maintenance Worker Name Role Phone Miranda, Dagobertobryan Castillow Primary Care Provider Encounter Details Date Type Department Care Team (Late st Contact Info) Description 03/16/2024 Procedure Pass [facility] Endoscopy Admitting Dept Virtual Department [address] [place] [address] Social History Tobacco Use Types Packs/Day Years [...] st Contact Info) Description 02/02/2025 Procedure Pass [address] [place] [address] 02/02/2025 Procedure Pass [address] [place] [address] 05/20/2025 9:30 AM EDT Appointment [address] [place] [address] Dagoberto Miranda, DO [address] [place] [address], [address] [place] [address] [place] [address] [email or web address] 05/20/2025 10:00 AM EDT Appointment [address] [place] [address] Dagoberto Miranda, DO [address] [place] [address], [address] [place] [address] [place] [address] [email or web address] 08/06/2025 1:30 PM EST Office Visit [facility] [address] [place] [address] [place] [address] Dagoberto Miranda, [address] [place] [address], [address] [place] [address] [place] [address] [email or web address] documented as of this encounter Visit Diagnoses Not on filedocumented in this encounter Additional Health Concerns Assessment Noted Time PHQ-2 Depression Total Score: 2 10/08/19 24 8:07 AM EST documented as of this encounter Care Teams Cleaning And Maintenance Worker Relationship Specialty Start Date End Date Dagoberto Miranda DO [address] [place] [address], [address] Floor [place] [phone] [email or web address] PCP - General Internal Medicine 04/29/23 documented as of this encounter Additional Source Comments The information contained in this document represents components of the legal health record. It is not the complete legal health record.[facility]
--- OUTSIDE RECORDS SUMMARY | 2025-04-20 12:35 | XMS_ITS | Clinical Summary ---
Author Organization [facility] Address [address] [place] [address] Phone Care Team Providers Care Digital Product Manager Name Role Phone Miranda, Dagoberto Tremaine Primary Care Provider Allergies No known active allergies Medications therapeutic multivitamin tablet Take 1 tablet by mouth daily. Active calcium-magnesium -zinc Tab Take by mouth. Activ e turmeric 400 mg Cap Take by mouth. Activ e polyethylene glycol (MIRALAX) 17 gram/dose powder Take 17 g by mouth daily. 595 g 1 10/08/19 24 Active docusate sodium (COLACE) 100 MG capsule Take 1 capsule (100 mg total) by mouth 2 (two) times a day. 60 capsule 1 10/08/19 24 Active Additional Information Patient not taking.Reported on 12/03/2024 lancets 28 gauge Misc 1 each by Miscellaneous route as needed. 90 each 3 10/28/19 24 Active blood-glucose meter,continuous (DEXCOM G6 COOK FISH AND CHIPS) Misc Replace every 360 days for blood sugar monitoring in diabetes. 1 each 03/02/20 24 Active Additional Information Patient not taking.Reported on 12/03/2024 blood-glucose transmitter (DEXCOM G6 TRANSMITTER) Kerry Replace every 90 days for blood sugar monitoring in diabetes. 1 each 3 03/02/20 24 Active RED BEET ROOT-SOUR VELEZ EXT ORAL Take by mouth. Activ e biotin, bulk, 100 % Powd by Miscellaneous route. Active ascorbic acid, vitamin C, (VITAMIN C) 250 MG tablet Take 250 mg by mouth daily. Active capsaicin (CAPZASIN-HP) 0.1 % Crea Apply topically 3 (three) times a day. 56.6 g 1 04/30/20 24 Active Additional Information Patient not taking.Reported on 12/03/2024 aspirin buffered 325 mg Tab tablet Take 325 mg by mouth daily. As needed Active insulin glargine 100 unit/mL (3 mL) InPn injection penIndications:Ty pe 1 diabetes mellitus with hyperglycemia Inject 30 Units under the skin daily. 18 mL 3 12/17/19 25 Active blood sugar diagnostic Strp stripsIndications :Type 1 diabetes mellitus with hyperglycemia 1 each by Miscellaneous route 3 (three) times a day before meals. Contour Next EZ 100 strip 3 01/21/20 25 Active blood-glucose sensor (CEED Tech G6 SENSOR) Kerry Replace every 10 days for blood sugar monitoring in diabetes. 5 each 3 01/23/20 25 Active blood-glucose meter kit Use as instructed for glucose testing. DM Type 1, on insulin. 1 each 01/26/20 25 Active blood sugar diagnostic Strp strips 1 each by Miscellaneous route 4 (four) times a day before meals and nightly. DM Type 1, on insulin. 400 strip 3 01/26/20 25 Active cyclobenzaprine (FLEXERIL) 10 MG tabletIndications :Chronic bilateral low back pain with right-sided sciatica Take 1 tablet (10 mg total) by mouth 3 (three) times a day as needed (muscle spasm). 90 tablet 3 02/10/20 25 Active clonazePAM (KLONOPIN) 0.5 MG tabletIndications :Anxiety state Take 1 tablet (0.5 mg total) by mouth 2 (two) times a day as needed for anxiety. 60 tablet 02/24/20 25 Active DULoxetine (CYMBALTA) 60 MG capsule TAKE 1 CAPSULE BY MOUTH DAILY 90 capsule 3 03/08/20 25 Active ULTICARE PEN NEEDLE 32 gauge x 1/4 Ndle USE ONCE DAILY WITH INSULIN 100 each 3 03/11/20 25 Active diclofenac sodium (VOLTAREN) 75 MG EC tabletIndications :Chronic bilateral low back pain with right-sided sciatica Take 1 tablet (75 mg total) by mouth 2 (two) times a day. 60 tablet 2 04/01/20 25 Active oxyCODONE-acetami nophen (PERCOCET) 10-325 mg per tablet Take 1 tablet by mouth every 4 (four) hours as needed for pain (specific location in comments). Partial fill ok 60 tablet 04/01/20 25 Active diclofenac sodium (VOLTAREN) 75 MG EC tabletIndications :Chronic bilateral low back pain with right-sided sciatica Take 1 tablet (75 mg total) by mouth 2 (two) times a day. 60 tablet 2 01/13/20 25 025 Discontin ued(Reord er) oxyCODONE-acetami nophen (PERCOCET) 10-325 mg per tablet Take 1 tablet by mouth every 4 (four) hours as needed for pain (specific location in comments). Partial fill ok 60 tablet 03/16/20 25 025 Discontin ued(Reord er) Active Problems Problem Noted Date Diagnosed Date [...] tumor marker is elevated, would refer to [employer] oncology for removal Ms villa is considering [...] encouraged to return to meet with our hospice educator/corsetier, we will meet next month for routine [...] Encounters Date Type Department Care Team Description 04/13/[address] [place] [address] Dagoberto Miranda, Referral 04/07/2025 2:15 PM EDT Office Visit [facility] [address] [place] [address] Nadege Li, Mehnaz Amaya, PT Chronic bilateral low back pain with bilateral sciatica (Primary Dx); Foot drop, left 04/01/[address] [place] [address] Shelbi Guerra 03/31/2025 2:15 PM EDT Office Visit [facility] [address] [place] [address] Nadege Li, Mehnaz Amaya, PT Chronic bilateral low back pain with bilateral sciatica (Primary Dx); Foot drop, left 03/24/2025 11:15 AM EDT Office Visit [facility] [address] [place] [address] Nadege Li, THREAD DRAWER Duke, Mehnaz, PT Chronic bilateral low back pain with bilateral sciatica (Primary Dx); Foot drop, left 03/17/2025 8:15 AM EDT Office Visit [facility] [address] [place] [address] Nadege Li, THREAD DRAWER Wall, Mehnaz, PT Chronic bilateral low back pain with bilateral sciatica (Primary Dx); Foot drop, left 03/16/[address] [place] [address] Dagoberto Miranda, DO Medication Refill 03/11/2025 7:00 AM EDT Office Visit [address] [address] Nadege iL, THREAD DRAWER Wall, Mehnaz, PT Chronic bilateral low back pain with bilateral sciatica (Primary Dx) 03/11/[address] [place] [address] Dagoberto Miranda, DO Medication Refill (Pen needles ) 03/08/[address] [place] [address] Dagoberto Miranda, DO Medication Refill 03/08/2025 Ancillary Orders [facility] [address] [place] [id number] Unknown, MD Angelica 03/07/2025 3:36 PM EDT - 03/07/2025 11:59 PM EDT Hospital Encounter [facility], [facility] - [address] [address] Dagoberto Miranda, Discharge Disposition: Home or Self Care 03/03/2025 8:15 AM EDT Office Visit [facility] [address] [place] [address] Nadege Li, THREAD DRAWER Wall, Mehnaz, PT Chronic bilateral low back pain with bilateral sciatica (Primary Dx) 02/24/2025 8:15 AM EDT Office Visit [facility] [address] [place] [address] Dolores Limukesh Ireland, THREAD DRAWER Wall, Mehnaz, PT Chronic bilateral low back pain with bilateral sciatica (Primary Dx); Foot drop, left 02/24/[address] [place] [address] Dagoberto Miranda, 02/24/2025 Telephone [facility] [address] [place] [address] Duke Mehnaz, PT 02/23/[address] [place] [address] Dagoberto Miranda, Medication Refill 02/09/2025 9:47 AM EDT - 02/09/2025 11:59 PM EDT Hospital Encounter [facility] [address] [place] [address] [place] [address] Dagoberto Miranda, Discharge Disposition: Home or Self Care 02/09/[address] [place] [address] Dagoberto Miranda, Referral 02/09/[address] [place] [address] Dagoberto Miranda, 02/02/2025 2:30 PM EDT Office Visit [address] [place] [address] Dagoberto Miranda, Type 1 diabetes mellitus without complication (Primary Dx); Mass of upper inner quadrant of left breast; Lumbar herniated disc; Lumbar radiculopathy; Annual physical exam 02/02/2025 Procedure Pass [facility], [facility] - [address] [address] 02/02/[address] [place] [address] Dagoberto Miranda, DO Forms & Paperwork 01/22/[address] [place] [address] Dagoberto Miranda, DO Medication Prior Authorization 01/20/[address] [place] [address] Dagoberto Miranda, DO Medication Refill 01/20/[address] [place] [address] Dagoberto Miranda, DO PT Treatment from Last 3 Months Immunizations Immunization Administration [...] st Contact Info) Description 02/02/2025 Procedure Pass [address] [place] [address] 02/02/2025 Procedure Pass [address] [place] [address] 05/20/2025 9:30 AM EDT Appointment [address] [place] [address] Dagoberto Miranda DO [address] [place] [address], [address] [place] [address] [email or web address] 05/20/2025 10:00 AM EDT Appointment [facility] - [address] [place] [address] Dagoberto Miranda, DO [address] [facility], 2nd Floor [place] [address] [email or web address] 08/06/2025 1:30 PM EST Office Visit [facility] [address] [place] [address] [place] [address] Dagoberto Miranda, DO [address] [facility], [address] [facility] [place] [address] [email or web address] Health Maintenance Due Date Last Done Comments PNEUMOCOCCAL VACCINES (50+ years) (1 of 2 - PCV) 1982 MAMMOGRAM 2003 COLOGUARD 2008 COLONOSCOPY 2008 COLORECTAL CANCER SCREENING 2008 FIT TEST 2008 FOBT 2008 SIGMOIDOSCOPY 2008 VIRTUAL COLONOSCOPY 2008 LUNG CANCER SCREENING (LDCT Only) 2013 ZOSTER VACCINES (1 of 2) 2013 DIABETIC EYE EXAM 01/07/2022 RSV VACCINE (1 - Risk 60-74 years 1-dose series) 2023 DEPRESSION SCREENING 10/07/2024 10/08/2023 INFLUENZA VACCINE (#1) 2025 , 06/13/2020, 07/03/2017 COVID-19 VACCINE ( season) 2025 09/08/2021, 10/19/2020, 09/21/2020 BLOOD PRESSURE 08/05/2025 02/02/2025 HEMOGLOBIN A1C 08/12/2025 02/09/2025, 10/03, 10/09/2023, Additional history exists LIPID PANEL 10/21/2025 10/21/2024, 06/0 08/2021, 11/03/2018 URINE MICROALBUMIN/CREATININE RATIO 10/21/2025 10/21/2024, 01/03/2022 [...] EDT) SODIUM 135 133 - 146 mmol/L [facility] POTASSIUM 4.2 3.3 - 5.1 mmol/L [facility] CHLORIDE 98 96 - 108 mmol/L [facility] CO2 26 21 - 35 mmol/L [facility] BUN 21(H) 6 - 19 mg/dL [facility] CREATININE 1.00 0.5 - 1.5 mg/dL [facility] GLUCOSE 221(H) 70 - 99 mg/dL [facility] ALBUMIN 4.3 3.9 - 4.8 g/dL [facility] TOTAL PROTEIN 7.9 6.5 - 8.0 g/dL [facility] CALCIUM 9.1 8.4 - 10.3 mg/dL [facility] ALKALINE PHOSPHATASE 85 39 - 117 U/L [facility] TOTAL BILIRUBIN <0.2 0.0 - 1.2 mg/dL [facility] AST 29 0 - 37 U/L [facility] ALT 24 0 - 40 U/L [facility] GLOBULIN 3.6 1 - 4.8 g/dL [facility] EGFR 64 >59 mL/min/1.7 3m2 [facility] Comment:Estimated glomerular filtration rate calculated using the CKD-EPI refit equation. ANION GAP 15 10 - 20 mmol/L [facility] Blood 02/09/2025 9:48 AM EDT 02/09/2025 9:53 AM EDT us Dagoberto Miranda DO LAB BLOOD ORDERABLES Fi nal Result [address] [address] * TSH with reflex (02/09/2025 9:48 AM EDT) TSH 0.81 0.27 - 4.20 uIU/mL [facility] Blood 02/09/2025 9:48 AM EDT 02/09/2025 9:53 AM EDT us Dagoberto Miranda DO LAB BLOOD ORDERABLES Fi nal Result Performing Organization Address City/[facility] Co de Phone Number [address] [address] * (ABNORMAL) CBC (02/09/2025 9:48 AM EDT) WBC 4.38 4.00 - 11.00 K/uL [facility] RBC 4.05 4.00 - 5.20 M/uL [facility] HGB 12.6 12.0 - 16.0 g/dL [facility] HCT 38.4 36.0 - 46.0 % [facility] PLT 202 150 - 450 K/uL [facility] MCV 94.8 80.0 - 100.0 fL [facility] MCH 31.1(H) 27.0 - 31.0 pg [facility] MCHC 32.8 32.0 - 36.0 g/dL [facility] RDW 11.2(L) 11.5 - 14.5 % [facility] MPV 10.1 8.4 - 12.0 fL [facility] NRBC 0.00 0.00 /100 WBCs [facility] ABSOLUTE NRBC 0.00 0.00 K/uL [facility] Blood 02/09/2025 9:48 AM EDT 02/09/2025 9:53 AM EDT Dagoberto Miranda DO LAB BLOOD ORDERABLES Fi nal Result Performing Organization Address [facility] Co de Phone Number [address] [address] * Hemoglobin A1c (02/09/2025 9:48 AM EDT) HEMOGLOBIN A1C 5.8 4.3 - 5.8 % [facility] Blood 02/09/2025 9:48 AM EDT 02/09/2025 9:55 AM EDT Dagoberto Miranda DO LAB BLOOD ORDERABLES Fi nal Result Performing Organization Address City/[facility]/ZIP Co de Phone Number [address] [address] * Microalbumin/creatinine ratio, random urine (10/21/2024 9:29 AM EDT) URINE MICROALBUMIN <1.2 0 - 2.3 mg/dL [facility] URINE CREATININE 66 mg/dL [facility] MICROALB/CRE RATIO NOT CALCULATED 0 - 20 mg/g Cre [facility] Comment:due to Microalbumin <1.2 Urine 10/21/2024 9:29 AM EDT 10/21/2024 9:32 AM EDT us Dagoberto Miranda DO URINE ORDERABLES Final Result Performing Organization Address [facility] de Phone Number [address] [address] * Lipid panel (10/21/2024 9:22 AM EDT) HDL 48 mg/dL [facility] Comment: Interpretation <40 mg/dL: Low HDL cholesterol (major risk factor for CHD) Greater than or equal to 60 mg/dL: High HDL cholesterol ( negative risk factor for CHD) HDL - cholesterol is affected by a number of factors, e.g. smoking, excerise, hormones, sex and age. CHOLESTEROL 163 0 - 240 mg/dL [facility] TRIGLYCERIDES 135 30 - 160 mg/dL [facility] LDL 88 50 - 129 mg/dL [facility] Comment: LDL levels in terms of risk for coronary heart disease: <100 mg/dL: Optimal 100-129 mg/dL: Near or above optimal 130-159 mg/dL: Borderline high 160-189 mg/dL: High >190 mg/dL: Very High CARDIAC RISK RATIO 3.4 3.3 - 4.4 C [facility] Blood 10/21/2024 9:22 AM EDT 10/21/2024 9:27 AM EDT us Dagoberto Miranda DO LAB BLOOD ORDERABLES Fi nal Result [address] [address] * Pap Test (03/17/2024 12:00 AM EDT) 03/17/2024 03/18/2024 9:0 1 AM EDT Narrative SEE NARRATIVE - 03/23/2024 5:07 PM EDT [address] [address] Database Management System Specialist: Emily Parker MD [employer] Cytology Report FINAL DIAGNOSIS A. PAP SMEAR (THIN PREP) CE: SPECIMEN ADEQUACY: Satisfactory for evaluation; transformation zone absent/insufficient. INTERPRETATION: NEGATIVE FOR INTRAEPITHELIAL LESION OR MALIGNANCY. This specimen was analyzed by the automated ThinPrep Imaging System ([employer].) and the selected larios were reviewed by a sourcing specialist. Electronically Signed Out By: JHONNY Ham(ASCP) The [...] 59, 66, 68) Note: Testing performed by [employer]Engine Onclarity HR-HPV analysis. Clinical correlation is advised. This HPV test was performed at [facility], [address] [place] [address]. This test has been FDA approved for both SurePath and ThinPrep cervical cytology specimens. The accuracy and precision of this test for all other specimen sources has been verified in the Cytopathology Laboratory of the [facility] and has not been cleared or approved by the U.S. Food and Drug Administration. Clinical correlation is advised. CLINICAL HISTORY Date of Last Menstrual Period: Not Provided Menstrual History: Post Menopausal Other Clinical Conditions: Screening Pap SPECIMEN SOURCE A: PAP SMEAR (THIN PREP) CE Patient Name: KAREN VILLA : 1965 (Age: 58) Sex: F Institution: [facility] Location: [facility] Date of Collection: 03/17/2024 Date of Reported: 03/23/2024 17:07 Results to: Deonan Munguia MD us Deonna Munguia MD CYTOLOGY ORDERABLES Final Result SEE NARRATIVE * Hepatitis C viral load (PCR) (01/03/2022 11:20 AM EDT) HCV RNA DETECT/QNT Undetected Undetected IU/mL [facility] Comment: (NOTE) Result in log IU/mL is Undetected. ADDITIONAL INFORMATION The quantification range of this assay is 15 to 100,000,000 IU/mL (1.18 log to 8.00 log IU/mL). Testing was performed using the colten HCV test ([employer] with the colten 6800 System. Blood (Blood) 01/03/2022 11: 20 AM EDT 01/03/2022 11:28 AM EDT us Aletha Peguero MD NON CULTURE MICROBIOLOGY Final R esult [facility] [address] [place] [address] from Last 3 Months or Most Recently Relevant to Health Maintenance Insurance [facility]CO MGP ACO MGP ACO MGP ACO [facility] ACO [facility]CO [facility]UR[facility] Care Teams Digital Product Manager Relationship Specialty Start Date End Date Dagoberto Miranda DO [address] [place] [address], [address] [place] [address] [email or web address] PCP - General Internal Medicine 04/29/23 Additional Source Comments The information contained in this document represents components of the legal health record. It is not the complete legal health record.[facility]
== END 2025-04-20 10:36 | disposition home or self-care (01) ==
LOC: HO.ENCR 09:47
PROVIDERS: PCP Pediatrics; Visit Provider Student in an Organized Health Care Education/Training Program
DX: E10.9 Type 1 diabetes mellitus without complications (principal)
CPT/HCPCS: 99204

== ENCOUNTER → 2025-04-20 09:47 | Outpatient (BNVA) | payer MEDICAID, SELFPAY | PROVIDERS: PCP Pediatrics; Visit Provider Student in an Organized Health Care Education/Training Program | DX: E10.9 Type 1 diabetes mellitus without complications (principal) | CPT/HCPCS: 82947; 99202 ==

== ENCOUNTER 2025-04-21 09:59 | Outpatient (AMB) | payer MEDICAID, SELFPAY ==
--- NOTE | 2025-04-21 10:31 | A.OFFVIS_ITS ---
Intake Intake Visit Reasons: Type 1 diabetes mellitus without complications Blaster Helper Required: No Accompanied by: Self / Same As Patient Allergies No Known Allergies Allergy (Verified 04/20/25 09:49) [facility] Medical History (Updated 04/20/25 @ 10:57 by Junior Bhatt MD) History of trigger finger GERD (gastroesophageal reflux disease) Anxiety Numbness Neuropathy Diabetes Lumbar radiculopathy Hepatitis C Arthritis DJD (degenerative joint disease) Surgical History (Updated 04/20/25 @ 09:57 by PANTERA Womack) Hx of cataract surgery Hx of oral surgery History of carpal tunnel release of both wrists History of surgical removal of pilonidal cyst H/O colonoscopy Social History Are you a primary day care assistant to a significant other at home: No Do you presently have visiting nurse or other home services: No Alcohol intake: current Alcohol intake frequency: 0-2 drinks per day Patient Tobacco Use Status: Current everyday Tobacco user Tobacco use type: Cigarette Cigarettes Per Day: 4 Current occupational status: employed 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 2= needs review? 3= comprehend keep point? 4= demonstrates understanding/ competent? NC= Not Covered Topics Learning Objective: Initial visit Initial or post srvc Initial or post srvc Initial or post srvc Initial or post srvc Initial or post srvc Post srvc Comments Pre Edu-assessment/plan Outcome or reassess Outcome or reassess Outcome or reassess Outcome or reassess Outcome or reassess Outcome or reassess Diabetes pathophysiology 1 Healthy eating 1 Being active 1 Taking medication 2 Monitoring glucose 1 Acute complication 1 Chronic complicated 1 Lifestyle and healthy coping 1 Diabetes distress in support 1 ?Diabetes pathophysiology: ?Defined diabetes med identify own type of diabetes; list 3 options for treating diabetes Healthy eating: ?Described effect of type, amount and ?timing of food on blood glucose; list 3 methods for planning meal Being active: ?State effect of exercise on blood glucose level Taking medication: ?State effect of diabetes medications on diabetes; name diabetes medications taking, action and side effects Monitoring glucose: ?Identify recommended blood glucose targets and personal target Acute complication: ?List symptoms and treatment of hyper and hypoglycemia, DKA, sick day guidelines and guidelines for severe weather or situations of crisis and diabetes supply manage Chronic complication: ?To find the relationship of blood glucose levels to long- term complications of diabetes in screening and preventative measures Lifestyle and healthy coping: ?Described lifestyle and healthy coping strategies to rule out diabetes self-management Diabetes to stress and support: ?Recognize Diabetes to stress and be able to identified support options Learning objectives: The patient was provided with verbal and written education on the following topics as outlined below. The patient met all learning objectives and was able to verbalize understanding and provide teach back of education topics discussed . The patient was provided with the opportunity to ask questions and all questions were answered. Patient Assessment Assess patient education level/literacy/barriers, patient diagnosed with type 1 diabetes approximately 2 years ago. A1c on 04/20/2025 5.8% Patient is currently on Lantus 20 units, does not use mealtime insulin Reports having glucometer and testing 1 to 3 times almost every day. Patient reports having glucose under 70 mg/dL 2 to 3 times a month does not experience hypoglycemic symptoms Insulin/Injectables (If applicable) * Storage/care of insulin?? * Injection sites? * Site rotation? * Onset, peak, duration * Drawing up insulin? * Injecting insulin/other injectables? * Sharps disposalContinuous blood glucose monitoring (if applicable) Hypoglycemia * Signs and symptoms? * Causes?? * Treatment? * Preventing hypoglycemia? Patient questions/concerns What is Diabetes? Pathophysiology How the body produces and uses insulin Identify type of DM Risk factors Signs of Diabetes Brief overview of Diabetes Management Monitoring blood sugar Following a meal plan Regular exercise Maintaining a healthy weight Taking medication as needed Members of the care team (PCP, RN, MA, RD, CDE, coach) Blood glucose monitoring When/how often to test Target blood sugar ranges Patient did not bring meter to today's visit Introduction to Nutrition Importance of healthy diet in managing DM Diet is personalized to individual preference Review patient?s regular diet/food preferences Who prepares meals/does food shopping/ Dining out?/ Barriers? How diet effects glucose Eating 3 balanced meals a day with small, healthy snacks between meals Review food groups Carbohydrates: What is a carbohydrate/Which food/food groups are considered carbohydrates Effect of carbohydrates on blood glucose Portion sizes Reading food labels Basic carb counting (if applicable per nursing assessment) Plate method Meal planning Recommendations: Follow plate method, consistent carbs and read nutritional labels. Smart Goal: Patient will identify foods and current meal plan that contain carbohydrates Educational Materials: The patient was provided with the following written educational materials: Planning Healthy Meals Handout Patient Response to instructions: Comprehension of Instructions: Fair Readiness to make changes: Contemplation How confident they feel about making changes: Fair Portions of this note were created using voice recognition software, please excuse any words or phrases that may have been misinterpreted. Patient Instructions: Include regular daily activity. ADA recommends 30 minutes of exercise 5 days a week. Weight loss talk to PCP or Banquet Set Up Person before starting new plan. Test blood sugar as directed; Fasting and 2hpp largest meal. Watch trends in results. Utilize results and to assess how food, physical activity and medications affect blood sugar results. Bring glucometer or CGM to next visit. Be knowledgeable about diabetes medication, its action, side effects, efficacy, toxicity, prescribed dosage, appropriate timing and frequency of administration, effect of missed and delayed doses and instructions for storage, travel and safe ty. Problem solving techniques to monitor hypo/hyperglycemia episodes and treatments. Reduce risk reduction behaviors, smoking cessation, regular eye, foot and dental examinations. Coding Level of Care Code Est Pt Level 1 (28061) Diagnoses Type 1 diabetes mellitus E10.9
--- OUTSIDE RECORDS SUMMARY | 2025-04-21 12:02 | XMS_ITS | Encounter Summary ---
Author Organization [facility] Address [address] [place] [address] [address] [place] [address] Phone Care Team Providers Care Outbound Sales Professional Name Role Phone Miranda, Dagobertobryan Castillow Primary Care Provider Encounter Details Date Type Department Care Team (Late st Contact Info) Description 05/04/2024 Procedure Pass [facility] Admitting Dept Virtual Department [address] [place] [address] Social History Tobacco Use Types Packs/Day Years [...] st Contact Info) Description 02/02/2025 Procedure Pass [address] [place] [address] 02/02/2025 Procedure Pass [address] [place] [address] 05/20/2025 9:30 AM EDT Appointment [address] [place] [address] Dagoberto Miranda, DO [address] [place] [address], [address] [place] [address] [place] [address] [email or web address] 05/20/2025 10:00 AM EDT Appointment [address] [place] [address] Dagoberto Miranda, DO [address] [place] [address], [address] [place] [address] [place] [address] [email or web address] 08/06/2025 1:30 PM EST Office Visit [facility] [address] [place] [address] [place] [address] Dagoberto Miranda, [address] [place] [address], [address] [place] [address] [place] [address] [email or web address] documented as of this encounter Visit Diagnoses Not on filedocumented in this encounter Additional Health Concerns Assessment Noted Time PHQ-2 Depression Total Score: 2 10/08/19 24 8:07 AM EST documented as of this encounter Care Teams Outbound Sales Professional Relationship Specialty Start Date End Date Dagoberto Miradna DO [address] [place] [address], 2nd Floor [place] [phone] [email or web address] PCP - General Internal Medicine 04/29/23 documented as of this encounter Additional Source Comments The information contained in this document represents components of the legal health record. It is not the complete legal health record.[facility]
--- OUTSIDE RECORDS SUMMARY | 2025-04-21 12:02 | XMS_ITS | Encounter Summary ---
Author Organization [facility] Address [address] [place] [address] Drive [address] [place] [address] Phone Care Team Providers Care Car Sealer Name Role Phone Miranda, Dagoberto Tremaine Primary Care Provider Encounter Details Date Type Department Care Team (Late st Contact Info) Description 10/01/2023 Procedure Pass [facility], Ct Scan - [facility] [address] [place] [address] Social History Tobacco Use Types Packs/Day Years [...] 10/01/2023 10:01 AM Denia Tuttle RN * [place] Suicide Severity Rating Scale (Screener/Recent Self-Report) Question [...] st Contact Info) Description 02/02/2025 Procedure Pass [address] [place] [address] 02/02/2025 Procedure Pass [address] [place] [address] 05/20/2025 9:30 AM EDT Appointment [address] [place] [address] Dagoberto Miranda, DO [address] [place] [address], [address] [place] [address] [place] [address] 05/20/2025 10:00 AM EDT Appointment [address] [place] [address] Dagoberto Miranda, DO [address] [place] [address], 2nd [facility] [place] [address] 08/06/2025 1:30 PM EST Office Visit [facility] [address] [place] [address] [place] [address] Dagoberto Miranda, DO [address] [place] [address], 2nd [facility] [place] [address] documented as of this encounter Visit Diagnoses Not on filedocumented in this encounter Additional Health Concerns Assessment Noted Time PHQ-2 Depression Total Score: 1 01/04/20 22 10:37 AM EDT documented as of this encounter Care Teams Car Sealer Relationship Specialty Start Date End Date Dagoberto Miranda DO [address] [place] [address], [address]nd [place] [address] [email or web address] PCP - General Internal Medicine 04/29/23 documented as of this encounter Additional Source Comments The information contained in this document represents components of the legal health record. It is not the complete legal health record.[facility]
--- OUTSIDE RECORDS SUMMARY | 2025-04-21 12:02 | XMS_ITS | Clinical Summary ---
Author Organization [facility] Address [address] [place] [address] Phone Care Team Providers Care Taper Machine Name Role Phone Miranda, Dagoberto Tremaine Primary [...] 10/28/19 24 Active blood-glucose meter,continuous (DEXCOM G6 CLASSIFIER) Misc Replace every 360 days for blood [...] strip 3 01/21/20 25 Active blood-glucose sensor (Parallel Universe G6 SENSOR) Kerry Replace every 10 days [...] tumor marker is elevated, would refer to PAPER RULER oncology for removal Ms villa is considering [...] encouraged to return to meet with our cosmetology educator/account relationship manager, we will meet next month for routine [...] Encounters Date Type Department Care Team Description 04/20/[address] [place] [address] Dagoberto Miranda, DO Medication Refill (/) 04/13/[address] [place] [address] Dagoberto Miranda, DO Referral 04/07/2025 2:15 PM EDT Office Visit [facility] [address] [place] [address] Nadege Li, Mehnaz Amaya, PT Chronic bilateral low back pain with bilateral sciatica (Primary Dx); Foot drop, left 04/01/[address] [place] [address] Shelbi Guerra 03/31/2025 2:15 PM EDT Office Visit [facility] [address] [place] [address] LaurabrieyeseniaNadege, [employer] Wall, Mehnaz, PT Chronic bilateral low back pain with bilateral sciatica (Primary Dx); Foot drop, left 03/24/2025 11:15 AM EDT Office Visit [facility] [address] [place] [address] LauraNadege klein, [employer] Wall, Mehnaz, PT Chronic bilateral low back pain with bilateral sciatica (Primary Dx); Foot drop, left 03/17/2025 8:15 AM EDT Office Visit [facility] [address] [place] [address] LaurabrieyeseniaNadege, [employer] Wall, Mehnaz, PT Chronic bilateral low back pain with bilateral sciatica (Primary Dx); Foot drop, left 03/16/[address] [place] [address] Dagoberto Miranda, DO Medication Refill 03/11/2025 7:00 AM EDT Office Visit [facility] [address] [place] [address] LauraNadege klein, [employer] Wall, Mehnaz, PT Chronic bilateral low back pain with bilateral sciatica (Primary Dx) 03/11/[address] [place] [address] Dagoberto Miranda, DO Medication Refill (Pen needles ) 03/08/[address] [place] [address] Dagoberto Miranda, DO Medication Refill 03/08/2025 Ancillary Orders [facility],Outside Imaging [address] [place] [address] Angelica Dominguez MD 03/07/2025 3:36 PM EDT - 03/07/2025 11:59 PM EDT Hospital Encounter [facility], [facility] [address] [place] [address] Dagoberto Miranda, Discharge Disposition: Home or Self Care 03/03/2025 8:15 AM EDT Office Visit [facility] [address] [place] [address] Nadege Li, [employer] P[employer] Mehnaz Wall, PT Chronic bilateral low back pain with bilateral sciatica (Primary Dx) 02/24/2025 8:15 AM EDT Office Visit [facility] [address] [place] [address] Nadege Li, [employer] P[employer] Mehnaz Wall, PT Chronic bilateral low back pain with bilateral sciatica (Primary Dx); Foot drop, left 02/24/[address] [place] [address] Dagoberto Miranda, 02/24/2025 Telephone [facility] [address] [place] [address] Mehnaz Wall, PT 02/23/[address] [place] [address] Dagoberto Miranda, Medication Refill 02/09/2025 9:47 AM EDT - 02/09/2025 11:59 PM EDT Hospital Encounter [facility] [address] [place] [address] [place] [address] Dagoberto Miranda, DO Discharge Disposition: Home or Self Care 02/09/[address] [place] [address] Dagoberto Miranda, Referral 02/09/[address] [place] [address] Dagoberto Miranda, 02/02/2025 2:30 PM EDT Office Visit [address] [place] [address] Dagoberto Miranda, Type 1 diabetes mellitus without complication (Primary Dx); Mass of upper inner quadrant of left breast; Lumbar herniated disc; Lumbar radiculopathy; Annual physical exam 02/02/2025 Procedure Pass [facility] [address] [place] [address] 02/02/2025 Telephone [facility] [address] [place] [address] Dagoberto Miranda, DO Forms & Paperwork 01/22/2025 Telephone [facility] [address] [place] [address] Dagoberto Miranda, DO Medication Prior Authorization 01/20/2025 Refill [facility] [address] [place] [address] Dagoberto Miranda, DO Medication Refill 01/20/2025 Telephone [facility] [address] [place] [address] Dagoberto Miranda, DO PT Treatment from Last [...] st Contact Info) Description 02/02/2025 Procedure Pass [address] [place] [address] 02/02/2025 Procedure Pass [address] [place] [address] 05/20/2025 9:30 AM EDT Appointment [address] [place] [address] Dagoberto Miranda, DO [address] [place] [address], 2nd [facility] [place] [address] 05/20/2025 10:00 AM EDT Appointment [address] [place] [address] Dagoberto Miranda, [address] [place] [address], 2nd Floor [place] [address] 08/06/2025 1:30 PM EST Office Visit [facility] [address] [place] [address] [place] [address] Dagoberto Miranda, [address] [place] [address], 2nd [facility] [place] [address] Health Maintenance Due Date Last Done Comments [...] Additional history exists LIPID PANEL 10/21/2025 10/21/2024, 06/08/2021, 11/03/2018 URINE MICROALBUMIN/CREATININE RATIO 10/21/2025 10/21/2024, 01/03/2022 [...] severe at L3-L4 and L4-L5. us Dagoberto Miranda DO IMG MR XSPECIALTY Final Result * (ABNORMAL) Comprehensive metabolic panel (02/09/2025 9:48 AM EDT) SODIUM 135 133 - 146 mmol/L [facility] POTASSIUM 4.2 3.3 - 5.1 mmol/L [facility] CHLORIDE 98 96 - 108 mmol/L [facility] CO2 26 21 - 35 mmol/L [facility] BUN 21(H) 6 - 19 mg/dL [facility] CREATININE 1.00 0.5 - 1.5 mg/dL [facility] GLUCOSE 221(H) 70 - 99 mg/dL [facility] ALBUMIN 4.3 3.9 - 4.8 g/dL [facility] TOTAL PROTEIN 7.9 6.5 - 8.0 g/dL [facility] CALCIUM 9.1 8.4 - 10.3 mg/dL [facility] ALKALINE PHOSPHATASE 85 39 - 117 U/L [facility] TOTAL BILIRUBIN <0.2 0.0 - 1.2 mg/dL [facility] AST 29 0 - 37 U/L [facility] ALT 24 0 - 40 U/L [facility] GLOBULIN 3.6 1 - 4.8 g/dL [facility] EGFR 64 >59 mL/min/1.7 3m2 [facility] Comment:Estimated glomerular filtration rate calculated using the CKD-EPI refit equation. ANION GAP 15 10 - 20 mmol/L [facility] Blood 02/09/2025 9:48 AM EDT 02/09/2025 9:53 AM EDT us Dagoberto Miranda DO LAB BLOOD ORDERABLES Fi nal Result [address] [address] * TSH with reflex (02/09/2025 9:48 AM EDT) TSH 0.81 0.27 - 4.20 uIU/mL [facility] Blood 02/09/2025 9:48 AM EDT 02/09/2025 9:53 AM EDT Dagoberto Miranda DO LAB BLOOD ORDERABLES Fi nal Result Performing Organization Address City/[facility]/ZIP Co de Phone Number [address] [address] * (ABNORMAL) CBC (02/09/2025 9:48 AM EDT) WBC 4.38 4.00 - 11.00 K/uL [facility] RBC 4.05 4.00 - 5.20 M/uL [facility] HGB 12.6 12.0 - 16.0 g/dL [facility] HCT 38.4 36.0 - 46.0 % [facility] PLT 202 150 - 450 K/uL [facility] MCV 94.8 80.0 - 100.0 fL [facility] MCH 31.1(H) 27.0 - 31.0 pg [facility] MCHC 32.8 32.0 - 36.0 g/dL [facility] RDW 11.2(L) 11.5 - 14.5 % [facility] MPV 10.1 8.4 - 12.0 fL [facility] NRBC 0.00 0.00 /100 WBCs [facility] ABSOLUTE NRBC 0.00 0.00 K/uL [facility] Blood 02/09/2025 9:48 AM EDT 02/09/2025 9:53 AM EDT us Dagoberto Miranda DO LAB BLOOD ORDERABLES Fi nal Result [address] [address] * Hemoglobin A1c (02/09/2025 9:48 AM EDT) HEMOGLOBIN A1C 5.8 4.3 - 5.8 % [facility] Blood 02/09/2025 9:48 AM EDT 02/09/2025 9:55 AM EDT Dagoberto Miranda DO LAB BLOOD ORDERABLES Fi nal Result Performing Organization Address [facility] Co de Phone Number [address] [address] * Microalbumin/creatinine ratio, random urine (10/21/2024 9:29 AM EDT) URINE MICROALBUMIN <1.2 0 - 2.3 mg/dL [facility] URINE CREATININE 66 mg/dL [facility] MICROALB/CRE RATIO NOT CALCULATED 0 - 20 mg/g Cre [facility] Comment:due to Microalbumin <1.2 Urine 10/21/2024 9:29 AM EDT 10/21/2024 9:32 AM EDT Dagoberto Miranda DO URINE ORDERABLES Final Result Performing Organization Address [facility] de Phone Number [address] [address] * Lipid panel (10/21/2024 9:22 AM EDT) HDL 48 mg/dL [facility] Comment: Interpretation <40 mg/dL: Low HDL cholesterol (major risk factor for CHD) Greater than or equal to 60 mg/dL: High HDL cholesterol ( negative risk factor for CHD) HDL - cholesterol is affected by a number of factors, e.g. smoking, excerise, hormones, sex and age. CHOLESTEROL 163 0 - 240 mg/dL [facility] TRIGLYCERIDES 135 30 - 160 mg/dL [facility] LDL 88 50 - 129 mg/dL [facility] Comment: LDL levels in terms of risk for coronary heart disease: <100 mg/dL: Optimal 100-129 mg/dL: Near or above optimal 130-159 mg/dL: Borderline high 160-189 mg/dL: High >190 mg/dL: Very High CARDIAC RISK RATIO 3.4 3.3 - 4.4 C [facility] Blood 10/21/2024 9:22 AM EDT 10/21/2024 9:27 AM EDT us Dagoberto Miranda DO LAB BLOOD ORDERABLES Fi nal Result [address] [address] * Pap Test (03/17/2024 12:00 AM EDT) 03/17/2024 03/18/2024 9:0 1 AM EDT Narrative SEE NARRATIVE - 03/23/2024 5:07 PM EDT [address] [address] Bias Machine Operator: Emily Parker MD PAP[facility]ULER Cytology Report FINAL DIAGNOSIS A. PAP SMEAR (THIN PREP) CE: SPECIMEN ADEQUACY: Satisfactory for evaluation; transformation zone absent/insufficient. INTERPRETATION: NEGATIVE FOR INTRAEPITHELIAL LESION OR MALIGNANCY. This specimen was analyzed by the automated ThinPrep Imaging System ([employer].) and the selected larios were reviewed by a user interface developer. Electronically Signed Out By: JHONNY Ham(ASCP) The [...] 59, 66, 68) Note: Testing performed by [employer] Onclarity HR-HPV analysis. Clinical correlation is advised. This HPV test was performed at [facility], [address] [place] [address]. This test has been FDA approved for both SurePath and ThinPrep cervical cytology specimens. The accuracy and precision of this test for all other specimen sources has been verified in the Cytopathology Laboratory of the [facility] and has not been cleared or approved by the U.S. Food and Drug Administration. Clinical correlation is advised. CLINICAL HISTORY Date of Last Menstrual Period: Not Provided Menstrual History: Post Menopausal Other Clinical Conditions: Screening Pap SPECIMEN SOURCE A: PAP SMEAR (THIN PREP) CE Patient Name: KAREN VILLA : 1965 (Age: 58) Sex: F Institution[facility] Location: [facility] Date of Collection: 03/17/2024 Date of Reported: 03/23/2024 17:07 Results to: Deonna Munguia MD us Doenna Munguia MD CYTOLOGY ORDERABLES Final Result Performing Organization Address [facility] de Phone Number SEE NARRATIVE * Hepatitis C viral load (PCR) (01/03/2022 11:20 AM EDT) HCV RNA DETECT/QNT Undetected Undetected IU/mL [facility] Comment: (NOTE) Result in log IU/mL is Undetected. ADDITIONAL INFORMATION The quantification range of this assay is 15 to 100,000,000 IU/mL (1.18 log to 8.00 log IU/mL). Testing was performed using the colten HCV test ([employer] with the colten 6800 System. Blood (Blood) 01/03/2022 11: 20 AM EDT 01/03/2022 11:28 AM EDT us Aletha Peguero MD NON CULTURE MICROBIOLOGY Final R esult Performing Organization Address City/[facility] Co de Phone Number [facility] [address] [place] [address] from Last 3 Months or Most Recently Relevant to Health Maintenance Insurance [facility] INSURANCE Care Teams Taper Machine Relationship Specialty Start Date End Date Dagoberto Miranda DO [address] [place] [address], 2nd [place] [address] [email or web address] PCP - General Internal Medicine 04/29/23 Additional Source Comments The information contained in this document represents components of the legal health record. It is not the complete legal health record.[facility]
--- OUTSIDE RECORDS SUMMARY | 2025-04-21 12:02 | XMS_ITS | Encounter Summary ---
Author Organization [facility] Address [address] [place] [address] [place] [address] Phone Care Team Providers Care Ophthalmologist Name Role Phone Norris Silverman MD Primary Care Provider [email or web address] [email or web address] Centeno RNbalance staff inspector Provider [phone] Unknown, Unknown Primary Care Provider Aletha Flores MD Primary Care Provider [email or web address] Dagoberto Miranda DO Primary Care Provider Reason for Referral * MRI/CAT Scan - Closed Specialty Diagnoses / Procedures Referred By Elia messina Referred To Contact Radiology Diagnoses Lumbar radiculopathy Procedures MRI Lumbar Spine Solomon Mason NP Phone: tel: fax: [email or web address] Referral ID Status Reason Start Date Expiration Date Visits Re quested Visits Authorized [id number] Closed 10/01/2017 11/30/2017 1 1 Encounter Details Date Type Department Care Team (Latest Contact Info) Description 10/04/2017 Ancillary Orders [facility] Department [address] [place] [address] Solomon Mason NP [address] [place] [address] [email or web address] Lumbar radiculopathy Social History Tobacco Use [...] st Contact Info) Description 02/02/2025 Procedure Pass [address] [place] [address] 02/02/2025 Procedure Pass [address] [place] [address] 05/20/2025 9:30 AM EDT Appointment [address] [place] [address] Dagoberto Miranda, DO [address] [place] [address], 2nd [facility] [place] [address] [email or web address] 05/20/2025 10:00 AM EDT Appointment [address] [place] [address] Dagoberto Miranda, DO [address] [place] [address], [address] [place] [address] [place] [address] [email or web address] 08/06/2025 1:30 PM EST Office Visit [facility] [address] [place] [address] [place] [address] Dagoberto Miranda, DO [address] [place] [address], [address] [place] [address] [place] [address] documented as of this encounter Results * [...] of clear concern are identified within the [id number]. Conus appears to be present at L1. [...] of clear concern are identified within the [id number].Conus appears to be present at L1. No [...] Leo on 10/18/2017 4:18 PM Solomon Mason HYDROGEOLOGIST IMG MR XSPECIALTY Final R esult documented in this encounter Visit Diagnoses Diagnosis Lumbar radiculopathy Thoracic or lumbosacral neuritis or radiculitis, unspecified Lumbar radiculopathy Thoracic or lumbosacral neuritis or radiculitis, unspecified documented in this encounter Care Teams Ophthalmologist Relationship Specialty Start Date End Date Norris Silverman MD [email or web address] PCP - General Family Medicine 07/18/17 09/14/18 Kassidy Centeno RN [address] [place] [address] [email or web address] PCP - General Internal Medicine 09/15/18 09/28/20 Unknown, nAgelica, PCP - General 12/28/21 01/06/22 Aletha Peguero MD [email or web address] PCP - General Family Medicine 01/07/2204/28 Dagoberto Miranda DO [address] [place] [address], 2nd [place] [address] [email or web address] PCP - General Internal Medicine 04/29/23 documented as of this encounter Additional Source Comments The information contained in this document represents components of the legal health record. It is not the complete legal health record.[facility]
--- OUTSIDE RECORDS SUMMARY | 2025-04-21 12:02 | XMS_ITS | Encounter Summary ---
Author Organization [facility] Address [address] [place] [address] [place] [address] Phone Care Team Providers Care Sample Puller Name Role Phone Norris Silverman MD Primary Care Provider [email or web address] room worker Provider [phone] Unknown, Unknown Primary Care Provider Aletha Flores MD Primary Care Provider [email or web address] Dagoberto Miranda DO Primary Care Provider Encounter Details Date Type Department Care Team (Late st Contact Info) Description 07/18/2017 Procedure Pass [facility], Ct Scan - [address] [address] Social History Tobacco Use Types Packs/Day Years [...] st Contact Info) Description 02/02/2025 Procedure Pass [address] [place] [address] 02/02/2025 Procedure Pass [address] [place] [address] 05/20/2025 9:30 AM EDT Appointment [address] [place] [address] Dagoberto Miranda DO [address] [place] [address], [address] [place] [address] 05/20/2025 10:00 AM EDT Appointment [address] [place] [address] Dagoberto Miranda DO [address] [place] [address] 08/06/2025 1:30 PM EST Office Visit [facility] [address] [place] [address] Dagoberto Miranda DO [address] [place] [address] documented as of this encounter Visit Diagnoses Not on filedocumented in this encounter Care Teams Sample Puller Relationship Specialty Start Date End Date Norris Silverman MD [email or web address] PCP - General Family Medicine 07/18/17 09/14/18 Kassidy Centeno RN [address] [place] [address] PCP - General Internal Medicine 09/15/18 09/28/20 Unknown, Angelica, PCP - General 12/28/21 01/06/22 Aletha Pegueor MD [email or web address] PCP - General Family Medicine 01/07/2204/28 Dagoberto Miranda DO [address] [place] [address] [email or web address] PCP - General Internal Medicine 04/29/23 documented as of this encounter Additional Source Comments The information contained in this document represents components of the legal health record. It is not the complete legal health record.[facility]
--- OUTSIDE RECORDS SUMMARY | 2025-04-21 12:02 | XMS_ITS | Encounter Summary ---
Author Organization [facility] Address [address] [place] [address] Phone Care Team Providers Care Trailer Steerer Name Role Phone Dagboerto Miranda DO Primary Care Provider Reason for Visit * Reason Onset Date Comments Referral 04/13/2025 Encounter Details Date Type Department Care Team (Late st Contact Info) Description 04/13/2025 Telephone [facility] [address] [place] [address] [place] [address] Dagoberto Miranda DO [address], [address]nd [place] [address] [email or web address] Referral Social History Tobacco Use Types Packs/Day [...] patient has been seen/requests to be seen: [facility] 2. Reason for referral/specialist appointment and [...] st Contact Info) Description 02/02/2025 Procedure Pass [address] [place] [address] 02/02/2025 Procedure Pass [address] [place] [address] 05/20/2025 9:30 AM EDT Appointment [address] [place] [address] Dagoberto Miranda, [address] [place] [address], 2nd [facility] SERGEI [place] [address] 05/20/2025 10:00 AM EDT Appointment [address] [place] [address] Dagoberto Miranda, [address] [place] [address], [address] [place] [address] SER[place] [address] 08/06/2025 1:30 PM EST Office Visit [facility] [address] [place] [address] [place] [address] Dagoberto Miranda, [address] [place] [address], [address] [place] [address] SERGEI [place] [address] documented as of this encounter Visit Diagnoses Diagnosis Depression- Primary Depressive disorder, not elsewhere classified Chronic bilateral low back pain with right-sided sciatica documented in this encounter Additional Health Concerns Assessment Noted Time PHQ-2 Depression Total Score: 2 10/08/19 24 8:07 AM EST documented as of this encounter Care Teams Trailer Steerer Relationship Specialty Start Date End Date Dagoberto Miranda DO [address] [place] [address], 2nd [facility] [place] [address] PCP - General Internal Medicine 04/29/23 documented as of this encounter Additional Source Comments The information contained in this document represents components of the legal health record. It is not the complete legal health record.[facility]
--- OUTSIDE RECORDS SUMMARY | 2025-04-21 12:02 | XMS_ITS | Encounter Summary ---
Author Organization [facility] Address [address] [place] [address] [address] [place] [phone] Phone Care Team Providers Care Presentation Team Member Name Role Phone Miranda, Dagobertobryan Castillow Primary Care Provider Encounter Details Date Type Department Care Team (Late st Contact Info) Description 03/16/2024 Procedure Pass [facility] Endoscopy Admitting Dept Virtual Department 30 [place] [address] Social History Tobacco Use Types Packs/Day Years [...] st Contact Info) Description 02/02/2025 Procedure Pass [address] [place] [address] 02/02/2025 Procedure Pass [address] [place] [address] 05/20/2025 9:30 AM EDT Appointment [address] [place] [address] Dagoberto Miranda, DO [address] [place] [address], [address] [place] [address] [place] [address] [email or web address] 05/20/2025 10:00 AM EDT Appointment [address] [place] [address] Dagoberto Miranda, DO [address] [place] [address], [address] [place] [address] Ron[place] [address] [email or web address] 08/06/2025 1:30 PM EST Office Visit [facility] [address] [place] [address] [place] [address] Dagoberto Miranda, [address] [place] [address], [address] [place] [address] [place] [address] [email or web address] documented as of this encounter Visit Diagnoses Not on filedocumented in this encounter Additional Health Concerns Assessment Noted Time PHQ-2 Depression Total Score: 2 10/08/19 24 8:07 AM EST documented as of this encounter Care Teams Presentation Team Member Relationship Specialty Start Date End Date Dagoberto Miranda DO [address] [place] [address], 2nd Floor [place] [phone] [email or web address] PCP - General Internal Medicine 04/29/23 documented as of this encounter Additional Source Comments The information contained in this document represents components of the legal health record. It is not the complete legal health record.[facility]
--- OUTSIDE RECORDS SUMMARY | 2025-04-21 12:02 | XMS_ITS | Encounter Summary ---
Author Organization [facility] Address [address] [place] [address] Drive [address] [place] [address] Phone Care Team Providers Care Health Director Name Role Phone Miranda, Dagobertobryan Penaloza DO Primary Care Provider Encounter Details Date Type Department Care Team (Late st Contact Info) Description 02/02/2025 Procedure Pass [facility], [address] [address] Social History Tobacco Use Types Packs/Day Years [...] st Contact Info) Description 02/02/2025 Procedure Pass [address] [place] [address] 02/02/2025 Procedure Pass [address] [place] [address] 05/20/2025 9:30 AM EDT Appointment [address] [place] [address] Dagoberto Miranda, DO [address] [place] [address], 2nd [facility] [place] [address] 05/20/2025 10:00 AM EDT Appointment [address] [place] [address] Dagoberto Miranda, [address] [place] [address], [address] [place] [address] [place] [address] 08/06/2025 1:30 PM EST Office Visit [facility] [address] [place] [address] [place] [address] Dagoberto Miranda, [address] [place] [address], [address] [place] [address] [place] [address] documented as of this encounter Visit Diagnoses Not on filedocumented in this encounter Additional Health Concerns Assessment Noted Time PHQ-2 Depression Total Score: 2 10/08/19 24 8:07 AM EST documented as of this encounter Care Teams Health Director Relationship Specialty Start Date End Date Dagoberto Miranda DO [address] [place] [address], 2nd Floor [place] [phone] [email or web address] PCP - General Internal Medicine 04/29/23 documented as of this encounter Additional Source Comments The information contained in this document represents components of the legal health record. It is not the complete legal health record.[facility]
--- OUTSIDE RECORDS SUMMARY | 2025-04-21 12:02 | XMS_ITS | Encounter Summary ---
Author Organization [facility] Address [address] [place] [address] [place] [address] Phone Care Team Providers Care Retail Associate Manager Bilingual Name Role Phone Kassidy Centeno RNfrozen yogurt maker Provider [phone] Unknown, Unknown Primary Care Provider Aletha Flores MD Primary Care Provider [email or web address] Dagoberto Miranda DO Primary Care Provider Encounter Details Date Type Department Care Team (Latest Contact Info) Description 02/17/2019 Transcribe Orders [facility] 2nd [place] [address] Ashley Velez PA-C [address] [place] [address] [email or web address] Hepatitis C virus infection [...] Contact Info) Description 02/02/2025 Procedure Pass [address] [place] [address] 02/02/2025 Procedure Pass [address] [place] [address] 05/20/2025 9:30 AM EDT Appointment [address] [place] [address] Dagoberto Miranda, DO [address] [place] [address], 2nd [place] [address] [email or web address] 05/20/2025 10:00 AM EDT Appointment [address] [place] [address] Dagoberto Miranda, DO [address] [place] [address], [address] [place] [address] [place] [address] [email or web address] 08/06/2025 1:30 PM EST Office Visit [facility] [address] [place] [address] Dr [place] [address] Dagoberto Miranda, DO [address] [place] [address], [address] [place], [place] [address], [place] [address] [email or web address] documented as of this encounter Results * (ABNORMAL) Hepatitis C genotyping (02/17/2019 2:12 PM EDT) HCV GENOTYPE 1a(A) Undetected [facility]PERIOR Comment: (NOTE) ADDITIONAL INFORMATION This test was performed using the [employer] RealTime HCV Genotype II assay ([employer] [place], [place]). Blood (Blood) 02/17/2019 2:1 2 PM EDT 02/17/2019 2:18 PM EDT us Ashley ZULUAGA-Julisa NON CULTURE MICROBIOLOGY Final Result [facility]PATH [address] DR [address] [place] [address] * Hepatitis B surface antigen (02/17/2019 2:12 PM EDT) HBV SURFACE ANTIGEN Negative Negative [facility] Blood 02/17/2019 2:12 PM EDT 02/17/2019 2:18 PM EDT us Ashley ZULUAGA-C LAB BLOOD ORDERABLES Final Resu lt Performing Organization Address [facility] Co de Phone Number [facility] [address] [place] [address] documented in this encounter Visit Diagnoses Diagnosis Hepatitis C virus infection without hepatic coma, unspecified chronicity- Primary documented in this encounter Additional Health Concerns Assessment Noted Time PHQ-2 Depression Total Score: 0 11/04/19 19 3:01 PM EDT documented as of this encounter Care Teams Retail Associate Manager Bilingual Relationship Specialty Start Date End Date Kassidy Centeno RN [address] [place] [address] [email or web address] PCP - General Internal Medicine 09/15/18 09/28/20 Unknown, Angelica, PCP - General 12/28/21 01/06/22 Aletha Peguero MD [email or web address] PCP - General Family Medicine 01/07/2204/28 Dagoberto Miranda DO [address] [place] [address], 2nd [place] [address] [email or web address] PCP - General Internal Medicine 04/29/23 documented as of this encounter Additional Source Comments The information contained in this document represents components of the legal health record. It is not the complete legal health record.[facility]
--- OUTSIDE RECORDS SUMMARY | 2025-04-21 12:02 | XMS_ITS | Encounter Summary ---
Author Organization [facility] Address [address] [place] [address] [place] [address] Phone Care Team Providers Care Radio Producer Name Role Phone Kassidy Centeno RNsuperintendent oil well services Provider Unknown, Unknown Primary Care Provider Aletha Flores MD Primary Care Provider [email or web address] Dagoberto Miranda DO Primary Care Provider Encounter Details Date Type Department Care Team (Late st Contact Info) Description 01/27/2019 Ancillary Orders Virtual Department 30 [place] [address] Ashley Velez PA-C [address] [place] [address] [email or web address] Hepatitis C virus infection without hepatic coma, [...] Contact Info) Description 02/02/2025 Procedure Pass [address] [place] [address] 02/02/2025 Procedure Pass [address] [place] [address] 05/20/2025 9:30 AM EDT Appointment [address] [place] [address] Dagoberto Miranda, DO [address] [place] [address], 2nd [place] [address] 05/20/2025 10:00 AM EDT Appointment [address] [place] [address] Dagoberto Miranda, [address], 2nd [place] [address] 08/06/2025 1:30 PM EST Office Visit [facility] [address] [place] [address] Dr Rud[place] [address] Dagoberto Miranda, [address], 2nd [place] [address] documented as of this encounter Results * US ABDOMEN LIMITED RIGHT UPPER QUADRANT (02/10/2019 10:23 AM EDT) Anatomical Region Laterality Modality Abdomen Ultrasound 02/10/2019 1:02 PM EDT Impressions 02/10/2019 1:25 PM EDT Normal ultrasound appearance of the liver. No liver masses. Normal Doppler flow in the main portal vein. POS - [id number] Narrative 02/10/2019 1:25 PM EDT EXAM: US [...] in the main portal vein. POS - [id number] us Ashley Velez PA-C IMG US ABDOMEN Final Result documented in this encounter Visit Diagnoses Diagnosis Hepatitis C virus infection without hepatic coma, unspecified chronicity Hepatitis C virus infection without hepatic coma, unspecified chronicity documented in this encounter Additional Health Concerns Assessment Noted Time PHQ-2 Depression Total Score: 0 11/04/19 19 3:01 PM EDT documented as of this encounter Care Teams Radio Producer Relationship Specialty Start Date End Date Kassidy Centeno RN [address] [place] [address] [email or web address] PCP - General Internal Medicine 09/15/18 09/28/20 Unknown, Unknown, PCP - General 12/28/21 01/06/22 Aletha Peguero MD [email or web address] PCP - General Family Medicine 01/07/2204/28 Dagoberto Miranda DO [address] [place] [address], 2nd [place] [address] [email or web address] PCP - General Internal Medicine 04/29/23 documented as of this encounter Additional Source Comments The information contained in this document represents components of the legal health record. It is not the complete legal health record.[facility]
--- OUTSIDE RECORDS SUMMARY | 2025-04-21 12:02 | XMS_ITS | Encounter Summary ---
Author Organization [facility] Address [address] [facility] [facility] [address] [place] [address] Phone Care Team Providers Care Athletic Team Physician Name Role Phone Dagoberto Miranda DO Primary Care Provider Reason for Visit * Reason Onset Date Comments Medication Refill 04/20/2025 Encounter Details Date Type Department Care Team (Late st Contact Info) Description 04/20/2025 Refill [facility] [address] [place] [address] Dagoberto Miranda DO [address], 2nd [place] [address] [email or web address] Medication Refill (/) Social History Tobacco Use Types Packs/Day Years [...] as of this encounter Progress Notes * Nidia Galeano MA - 04/20/2025 4:32 PM EDT Images from the original note were not included. Rx Care Gap Status - Instructions for Clinical Staff (prescriber discretion applies): > Mismatch review guide > Check PDMP for all controlled medication requests. Visit Info Last visit: 02/02/2025 Dagoberto Miranda, - Family Medicine [facility] > Requested f/u: Return in about 3 months (around 05/05/2025) for Recheck. Upcoming visit: 08/06/2025 Dagoberto Miranda DO - Family Medicine [facility] ACTIONS TAKEN BY Nidia Galeano MA - Checked PDMP/MassPAT. Diabetes Rx Protocol (on Diabetes Registry) - blood sugar diagnostic Criteria met; renew for up to 12 months. Visit in the past 14 months: Yes Clinical criteria: - BMP within past year: Yes - A1c within past 6 months: Yes - Lipid panel within past year: Yes (LDL 88 on 10/21/2024) - Urine microalbumin within past year or on NORTH/ARB: Yes Opioid Rx Protocol - oxycodone HCl/acetaminophen Controlled substance renewals are at prescriber discretion. Pain mgmt profile/toxicology (urine/saliva) may be considered annually or more frequently if indicated. In-person visit in past 2 years: Yes (Last in-person visit: 02/02/2025 (Dagoberto Miranda DO - [facility])) Visit in past 4 months: Yes Benzodiazepine on medication list Opioid agreement on file: No Pain management profile/toxicology in past 12 months: No Non-Opioid Controlled Substance With PDMP Rx Protocol - clonazepam Renewal is at prescriber discretion. Visit in the past 12 months: Yes Skeletal Muscle Relaxant Rx Protocol - cyclobenzaprine HCl Criteria met; renew for up to 12 months. Visit in the past 14 months: Yes Lab Results Component Value Date SODIUM 135 02/09/2025 POTASSIUM 4.2 02/09/2025 CHLORIDE 98 02/09/2025 CO2 26 02/09/2025 BUN 21 (H) 02/09/2025 CREATININE 1.00 02/09/2025 EGFR 64 02/09/2025 Lab Results Component Value Date HEMOGLOBIN A1C 5.8 02/09/2025 MICROALB/CRE RATIO NOT CALCULATED 10/21/2024 URINE MICROALBUMIN <1.2 10/21/2024 Lab Results Component Value Date LDL 88 10/21/2024 HDL 48 10/21/2024 CARDIAC RISK RATIO 3.4 10/21/2024 TRIGLYCERIDES 135 10/21/2024 CHOLESTEROL 163 10/21/2024 * Orlin Stone - 04/20/2025 1:07 PM EDT Pt is requesting a refill of the following mediations: oxyCODONE-acetaminophen (PERCOCET) 10-325 mg per tablet clonazePAM (KLONOPIN) 0.5 MG tablet cyclobenzaprine (FLEXERIL) 10 MG tablet blood sugar diagnostic Strp strips Pt is out of the [facility], [facility] best call back number [phone] Central Support Manual Arts Therapist (Please do not reply to this user; this inbox is not monitored.) Thank you. documented in this encounter Plan of Treatment Upcoming Encounters Date Type Department Care Team (Late st Contact Info) Description 02/02/2025 Procedure Pass [facility] - [address] [place] [address] 02/02/2025 Procedure Pass [address] [place] [address] 05/20/2025 9:30 AM EDT Appointment [address] [place] [address] Dagoberto Miranda, [address] [place] [address], 2nd Floor [place] [address] 05/20/2025 10:00 AM EDT Appointment [address] [place] [address] Dagoberto Miranda, [address] [place] [address], [address] [place] [address] [place] [address] 08/06/2025 1:30 PM EST Office Visit [facility] [address] [place] [address] Dr [place] [address] Dagoberto Miranda, [address] [place] [address], [address] [place] [address] [place] [address] documented as of this encounter Visit Diagnoses Diagnosis Anxiety state Anxiety state, unspecified Chronic bilateral low back pain with right-sided sciatica documented in this encounter Additional Health Concerns Assessment Noted Time PHQ-2 Depression Total Score: 2 10/08/19 24 8:07 AM EST documented as of this encounter Care Teams Athletic Team Physician Relationship Specialty Start Date End Date Dagoberto Miranda DO [address] [place] [address], [address] [place] [address] [place] [address] PCP - General Internal Medicine 04/29/23 documented as of this encounter Additional Source Comments The information contained in this document represents components of the legal health record. It is not the complete legal health record.[facility]
--- OUTSIDE RECORDS SUMMARY | 2025-04-21 12:02 | XMS_ITS | Encounter Summary ---
Author Organization [facility] Address [address] [place] [address] [place] [address] Phone Care Team Providers Care Sleeve Turner Name Role Phone Kassidy Centeno RNassembly line robot operator Provider [phone] Unknown, Unknown Primary Care Provider Aletha Flores MD Primary Care Provider [email or web address] Dagoberto Miranda DO Primary Care Provider Encounter Details Date Type Department Care Team (Late st Contact Info) Description 01/27/2019 Ancillary Orders [facility] [address] [place] [address] Ashley Velez PA-C [address] [place] [address] [email or web address] Social History Tobacco Use Types Packs/Day Years [...] st Contact Info) Description 02/02/2025 Procedure Pass [address] [place] [address] 02/02/2025 Procedure Pass [address] [place] [address] 05/20/2025 9:30 AM EDT Appointment [address] [place] [address] Dagoberto Miranda, DO [address] [place] [address], 2nd Floor [place] [address] 05/20/2025 10:00 AM EDT Appointment [address] [place] [address] Dagoberto Miranda, DO [address] [place] [address], 2nd [facility] [place] [address] 08/06/2025 1:30 PM EST Office Visit [facility] [address] [place] [address] Dr [place] [address] Dagoberto Miranda, DO [address] [place] [address], [address] [place] [address] [place] [address] documented as of this encounter Visit Diagnoses Not on filedocumented in this encounter Additional Health Concerns Assessment Noted Time PHQ-2 Depression Total Score: 0 11/04/19 19 3:01 PM EDT documented as of this encounter Care Teams Sleeve Turner Relationship Specialty Start Date End Date Kassidy Centeno RN [address] [place] [address] [email or web address] PCP - General Internal Medicine 09/15/18 09/28/20 Unknown, Unknown, PCP - General 12/28/21 01/06/22 Aletha Peguero MD PCP - General Family Medicine 01/07/2204/28 Dagoberto Miranda DO [address] [place] [address], 2nd [place] [address] [email or web address] PCP - General Internal Medicine 04/29/23 documented as of this encounter Additional Source Comments The information contained in this document represents components of the legal health record. It is not the complete legal health record.[facility]
--- OUTSIDE RECORDS SUMMARY | 2025-04-21 12:02 | XMS_ITS | Encounter Summary ---
Author Organization [facility] Address [address] [place] [address] [place] [address] Phone Care Team Providers Care Nurse Head Name Role Phone Kassidy Centeno RNnetwork internship Provider [phone] Unknown, Unknown Primary Care Provider Aletha Flores MD Primary Care Provider [email or web address] Dagoberto Miranda DO Primary Care Provider Encounter Details Date Type Department Care Team (Late st Contact Info) Description 11/04/2018 Procedure Pass [address] [place] [address] Social History Tobacco Use Types Packs/Day Years [...] st Contact Info) Description 02/02/2025 Procedure Pass [address] [place] [address] 02/02/2025 Procedure Pass [address] [place] [address] 05/20/2025 9:30 AM EDT Appointment [address] Rudolph [place] [address] Dagoberto Miranda, [address] [place] [address] [place] [address] 05/20/2025 10:00 AM EDT Appointment [address] Rud[place] [address] Dagoberto Miranda DO [address] [place] [address] [place] [address] 08/06/2025 1:30 PM EST Office Visit [facility] [address] [place] [address] Dr [place]olph [place] [address] Dagoberto Miranda DO [address] [place] [address] [place] [address] documented as of this encounter Visit Diagnoses Not on filedocumented in this encounter Additional Health Concerns Assessment Noted Time PHQ-2 Depression Total Score: 0 11/04/19 19 3:01 PM EDT documented as of this encounter Care Teams Nurse Head Relationship Specialty Start Date End Date Kassidy Centeno RN [address] [place] [address] PCP - General Internal Medicine 09/15/18 09/28/20 Unknown, Unknown, PCP - General 12/28/21 01/06/22 Aletha Peguero MD [email or web address] PCP - General Family Medicine 01/07/2204/28 Dagoberto Miranda DO [address] [place] [address], [address] [place], [place] [address] [address] [email or web address] PCP - General Internal Medicine 04/29/23 documented as of this encounter Additional Source Comments The information contained in this document represents components of the legal health record. It is not the complete legal health record.[facility]
--- OUTSIDE RECORDS SUMMARY | 2025-04-21 12:02 | XMS_ITS | Encounter Summary ---
Author Organization [facility] Address [address] [place] [address] [place] [address] Phone Care Team Providers Care Scalp Treatment Operator Name Role Phone Norris Silverman MD Primary Care Provider [email or web address] Kassidy Centeno RNesthetic dermatologist Provider [phone] Unknown, Unknown Primary Care Provider Aletha Flores MD Primary Care Provider [email or web address] Dagoberto Miranda DO Primary Care Provider Encounter Details Date Type Department Care Team (Late st Contact Info) Description 10/04/2017 Procedure Pass [address] [address] Social History Tobacco Use Types Packs/Day Years [...] st Contact Info) Description 02/02/2025 Procedure Pass [address] [place] [address] 02/02/2025 Procedure Pass [address] [place] [address] 05/20/2025 9:30 AM EDT Appointment [address] [place] [address] Dagoberto Miranda DO [address] [place] [address], [address] [place], [place] [address] [address] 05/20/2025 10:00 AM EDT Appointment [address] Rudolph [place] [address] Dagoberto Miranda DO [address] [place] [address] 08/06/2025 1:30 PM EST Office Visit [facility] [address] [place] [address] Dagoberto Miranda DO [address] [place] [address], [address] [place] [address] documented as of this encounter Visit Diagnoses Not on filedocumented in this encounter Care Teams Scalp Treatment Operator Relationship Specialty Start Date End Date Norris Silverman MD [email or web address] PCP - General Family Medicine 07/18/17 09/14/18 Kassidy Centeno RN [address] [place] [address] PCP - General Internal Medicine 09/15/18 09/28/20 Unknown, Angelica, PCP - General 12/28/21 01/06/22 Aletha Peguero MD [email or web address] PCP - General Family Medicine 01/07/2204/28 Dagoberto Miranda DO [address] [place] [address] [email or web address] PCP - General Internal Medicine 04/29/23 documented as of this encounter Additional Source Comments The information contained in this document represents components of the legal health record. It is not the complete legal health record.[facility]
--- OUTSIDE RECORDS SUMMARY | 2025-04-21 12:02 | XMS_ITS | Encounter Summary ---
Author Organization [facility] Address [address] [place] [address] [place] [address] Phone Care Team Providers Care Hydraulic Assembler Name Role Phone Kassidy Centeno RNindustrial automation specialist Provider [phone] Unknown, Unknown Primary Care Provider Aletha Flores MD Primary Care Provider [email or web address] Dagoberto Miranda DO Primary Care Provider Encounter Details Date Type Department Care Team (Late st Contact Info) Description 10/16/2018 Ancillary Orders Virtual Department [address] [place] [address] Ashley Velez PA-C [address] [place] [address] [email or web address] Hepatitis C virus infection [...] st Contact Info) Description 02/02/2025 Procedure Pass [address] [place] [address] 02/02/2025 Procedure Pass [address] [place] [address] 05/20/2025 9:30 AM EDT Appointment [address] [place] [address] Dagoberto Miranda, DO [address] [place] [address], 2nd [place] [address] 05/20/2025 10:00 AM EDT Appointment [address] [place] [address] Dagoberto Miranda, DO [address] [place] [address], 2nd [place] [address] 08/06/2025 1:30 PM EST Office Visit [facility] [address] [place] [address] Dr Rudolph [place] [address] Dagoberto Miranda, DO [address] [place] [address], [address] [place] [address] documented as of this encounter Visit Diagnoses Diagnosis Hepatitis C virus infection without hepatic coma, unspecified chronicity documented in this encounter Care Teams Hydraulic Assembler Relationship Specialty Start Date End Date Kassidy Centeno RN [address] [place] [address] PCP - General Internal Medicine 09/15/18 09/28/20 Unknown, Angelica, PCP - General 12/28/21 01/06/22 Aletha Peguero MD [email or web address] PCP - General Family Medicine 01/07/2204/28 Dagoberto Miranda DO [address] [place] [address], 2nd [place] [address] [email or web address] PCP - General Internal Medicine 04/29/23 documented as of this encounter Additional Source Comments The information contained in this document represents components of the legal health record. It is not the complete legal health record.[facility]
== END 2025-04-21 10:34 | disposition home or self-care (01) ==
LOC: HO.ENCR 10:00
PROVIDERS: PCP Pediatrics; Visit Provider Registered Nurse Diabetes Educator
DX: E10.9 Type 1 diabetes mellitus without complications (principal)

== ENCOUNTER → 2025-04-21 09:59 | Outpatient (BNVA) | payer MEDICAID, SELFPAY | PROVIDERS: PCP Pediatrics; Visit Provider Registered Nurse Diabetes Educator | DX: E10.9 Type 1 diabetes mellitus without complications (principal) | CPT/HCPCS: 99211 ==

== ENCOUNTER 2025-07-14 14:02 | Outpatient (REF) | payer MEDICAID, SELFPAY ==
--- NOTE | 2025-07-14 14:04 | EMG_ITS ---
Chief complaint: Left chronic footdrop I saw patient initially 09/2023 with severe back pain and left footdrop. Thought to be from lumbar radiculopathy. MRI lumbar showed severe foraminal stenosis. Today she looks much more comfortable, back pain has improved for the most part. Left footdrop also has improved. Able to walk better. However she is diabetic and admits to numbness on both feet, that it feels like she is constantly wearing shoes even when she is bare feet. Reason for referral: Evaluate for neuropathy versus radiculopathy Referred by: Petar ZULUAGA Procedure done: Bilateral lower extremity NCS/EMG Precautions and/or limitations: None The limb temperature was monitored continuously and remained between 32-36 degrees C during the performance of the NCS. Nerve Conduction Studies Anti Sensory Summary Table ?Stim Site NR Onset (ms) Norm Onset (ms) Peak (ms) Norm Peak (ms) O-P Amp (?V) Norm O-P Amp Site1 Site2 Delta-0 (ms) Dist (cm) Jose (m/s) Norm Jose (m/s) Left Sural Anti Sensory (Lat Mall) Calf NR <4.0 >5.0 Calf Lat Mall 14.0 Right Sural Anti Sensory (Lat Mall) Calf NR <4.0 >5.0 Calf Lat Mall 14.0 Motor Summary Table ?Stim Site NR Onset (ms) Norm Onset (ms) O-P Amp (mV) Norm O-P Amp iAmp (mV) Amp (1st) (%) Site1 Site2 Delta-0 (ms) Dist (cm) Jose (m/s) Norm Jose (m/s) Left Peroneal Motor (Ext Dig Brev) Ankle NR <4.0 >2.5 Ankle Ext Dig Brev 0.0 B Fib NR B Fib Ankle 0.0 >40 Poplt NR Poplt B Fib 0.0 >40 Right Peroneal Motor (Ext Dig Brev) Ankle NR <4.0 >2.5 Ankle Ext Dig Brev 0.0 B Fib NR B Fib Ankle 0.0 >40 Poplt NR Poplt B Fib 0.0 >40 Left Tibial Motor (Abd Pratt Brev) Ankle NR <5 >2.5 Ankle Abd Pratt Brev 0.0 Knee NR Knee Ankle 0.0 >40 Right Tibial Motor (Abd Pratt Brev) Ankle ? 4.8 <5 1.3 >2.5 1.4 100.0 Ankle Abd Pratt Brev 4.8 0.0 Knee ? 16.3 0.9 1.1 69.2 Knee Ankle 11.5 37.0 32 >40 EMG ?Side Muscle Nerve Root Ins Act Fibs Psw Amp Dur Poly Recrt Int Pat Comment Right AbdHallucis MedPlantar S1-2 Incr 1+ 1+ Nml Nml 0 Nml Complete Right AntTibialis Dp Br Peron L4-5 Nml Nml Nml Nml Nml 0 Nml Complete Right PostTibialis Tibial L5, S1 Nml Nml Nml Nml Nml 0 Nml Complete Right MedGastroc Tibial S1-2 Nml Nml Nml Nml Nml 0 Nml Complete Right VastusMed Femoral L2-4 Nml Nml Nml Nml Nml 0 Nml Complete Left AbdHallucis MedPlantar S1-2 Incr 2+ 2+ Nml Nml 0 Nml Complete Left AntTibialis Dp Br Peron L4-5 Incr 2+ 2+ Nml Nml 0 Nml Complete Left PostTibialis Tibial L5, S1 Nml Nml Nml Nml Nml 0 Nml Complete Left MedGastroc Tibial S1-2 Nml Nml Nml Nml Nml 0 Nml Complete Left VastusMed Femoral L2-4 Nml Nml Nml Nml Nml 0 Nml Complete Left Peroneus Long Sup Br Peron L5-S1 Incr 2+ 2+ Nml Nml 0 Nml Complete Left BicepsFemS Sciatic L5-S1 Nml Nml Nml Nml Nml 0 Nml Complete Paraspinal EMG ?Side Muscle Nerve Root Ins Act Fibs Psw Comment Right Lumbar Upper Rami Nml Nml Nml Right Lumbar Mid Rami Nml Nml Nml Right Lumbar Lower Rami Nml Nml Nml Left Lumbar Upper Rami Nml Nml Nml Left Lumbar Mid Rami Nml Nml Nml Left Lumbar Lower Rami Nml Nml Nml FINDINGS: Absent responses on bilateral peroneal, left tibial, and bilateral sural nerves. Very small amplitude seen on right tibial with slow conduction velocity. Concentric needle EMG was performed in selected muscles of the bilateral lower extremity and lumbar paraspinals. Study revealed signs of electric abnormalities as shown in the table above. Right AH showed increased insertional activity, PSWs and fibrillations. Left AH, tibialis anterior and peroneus longus showed increased insertional activity with +2 PSWs and fibrillations. No denervation seen on more proximal muscles including lumbar paraspinals. IMPRESSION: 1. This is an abnormal study. 2. There is electrodiagnostic evidence for severe sensorimotor distal symmetric polyneuropathy, both axonal and demyelinating features, with superimposed peroneal neuropathy at fibular neck or at least proximal to peroneus longus. 3. There is no electrodiagnostic evidence for ongoing lumbar radiculopathy or plexopathy. Thank you for your kind referral. Marie Cowan MD, AMY Board Certified, [place] Board of Physical Medicine and Rehabilitation (ABPMR) Board Certified, [place] Board of Electrodiagnostic Medicine (ABEM) CODIN 35148 x 2 extremities MTDD
--- OUTSIDE RECORDS SUMMARY | 2025-07-14 21:50 | XMS_ITS | Encounter Summary ---
Author Organization [facility] Address [address] [place] [address] Phone Care Team Providers Care Foundry Worker General Name Role Phone Dagoberto Miranda DO Primary Care Provider Amada Patel MD Unavailable [phone] Encounter Details Date Type Department Care Team (Late st Contact Info) Description 02/02/2025 Procedure Pass [address] [place] [address] Social History Tobacco Use Types Packs/Day Years Used Date Smoking Tobacco: Every Day Cigarettes 0.5 95.9 Started: [birth year]/05/1976 Smokeless Tobacco: Never Comments:I would love to sheila t. Alcohol Use Standard Drinks/Week Comments Yes 14 [...] Care Team (Late st Contact Info) Description 08/13/2025 10:00 AM EST Telemedicine [facility] [address] [place] [address] Cathie Ward, HNP- 22 [facility], [facility] [address] [place] [address] 09/10/2025 9:00 AM EST Office Visit [facility] [address] [place] [address] [place] [address] Dagoberto Miranda DO 170 [facility], [address] [place] [address] documented as of this encounter Visit Diagnoses Not on filedocumented in this encounter Additional Health Concerns Assessment Noted Time PHQ-2 Depression Total Score: 2 10/08/19 24 8:07 AM EST documented as of this encounter Care Teams Foundry Worker General Relationship Specialty Start Date End Date Dagoberto Miranda DO [address] [place] [address], [address] [place] [address] PCP - General Internal Medicine 04/29/23 Amada Patel MD [address] [place] [address] [address] [place], [place] [id number] [email or web address] Insurance Assigned Provider 06/19/25 documented as of this encounter Additional Source Comments The information contained in this document represents components of the legal health record. It is not the complete legal health record.[facility]
--- OUTSIDE RECORDS SUMMARY | 2025-07-14 21:50 | XMS_ITS | Encounter Summary ---
Author Organization [facility] Address [address] [place] [address] [place] [address] Phone Care Team Providers Care Senior Reservations Agent Name Role Phone Kassidy Centeno RNmicroeconomics professor Provider [phone] Unknown, Unknown Primary Care Provider Aletha Flores MD Primary Care Provider [email or web address] Dagoberto Miranda DO Primary Care Provider Amada Patel MD Unavailable [phone] Encounter Details Date Type Department Care Team (Late st Contact Info) Description 11/04/2018 Procedure Pass [address] [place] [address] Social History Tobacco Use Types Packs/Day Years [...] Info) Description 08/13/2025 10:00 AM EST Telemedicine [facility] [place] [address] Cathie Ward, PMHNP-BC 22 [facility], [address] [place] [address] 09/10/2025 9:00 AM EST Office [facility] [address] [place] [address] [place] [address] Dagoberto Miranda DO 170 [facility], 2nd [place] [address] [email or web address] documented as of this encounter Visit Diagnoses Not on filedocumented in this encounter Additional Health Concerns Assessment Noted Time PHQ-2 Depression Total Score: 0 11/04/19 19 3:01 PM EDT documented as of this encounter Care Teams Senior Reservations Agent Relationship Specialty Start Date End Date Kassidy Centeno RN [address] [place] [address] PCP - General Internal Medicine 09/15/18 09/28/20 Unknown, Unknown, MD PCP - General 12/28/21 01/06/22 Aletha Peguero MD [email or web address] PCP - General Family Medicine 01/07/22 04/28/23 Dagoberto Miranda DO [address] [place] [address], [address] [place] [address] PCP - General Internal Medicine 04/29/23 Amada Patel MD [address] [place] [address], [facility] [address] [place] [address] [email or web address] Insurance Assigned Provider 06/19/25 documented as of this encounter Additional Source Comments The information contained in this document represents components of the legal health record. It is not the complete legal health record.[facility]
--- OUTSIDE RECORDS SUMMARY | 2025-07-14 21:50 | XMS_ITS | Encounter Summary ---
Author Organization [facility] Address [address] [place] [address] Phone Care Team Providers Care Pharmacy Technologist Name Role Phone Dagoberto Miranda DO Primary Care Provider Amada Patel MD Unavailable [phone] Encounter Details Date Type Department Care Team (Late st Contact Info) Description 02/02/2025 Procedure Pass [address] [place] [address] Social History Tobacco Use Types Packs/Day Years [...] Info) Description 08/13/2025 10:00 AM EST Telemedicine [facility] [address] [place] [address] Cathie Ward, HNP- 22 [facility], [address] [place] [address] 09/10/2025 9:00 AM EST Office Visit [facility] [address] [place] [address] [place] [address] Dagoberto Miranda DO 170 [facility], [address] [place] [address] documented as of this encounter Visit Diagnoses Not on filedocumented in this encounter Additional Health Concerns Assessment Noted Time PHQ-2 Depression Total Score: 2 10/08/19 24 8:07 AM EST documented as of this encounter Care Teams Pharmacy Technologist Relationship Specialty Start Date End Date Dagoberto Miranda DO [address] [place] [address], [address] [place] [address] PCP - General Internal Medicine 04/29/23 Amada Patel MD [address] [place] [address] [address] [place] [address] [email or web address] Insurance Assigned Provider 06/19/25 documented as of this encounter Additional Source Comments The information contained in this document represents components of the legal health record. It is not the complete legal health record.[facility]
--- OUTSIDE RECORDS SUMMARY | 2025-07-14 21:50 | XMS_ITS | Encounter Summary ---
Author Organization [facility] Address [address] [place] [address] [place] [address] Phone Care Team Providers Care Shroudman Name Role Phone Kassidy Centeno RNdirector oracle Provider [phone] Unknown, Unknown Primary Care Provider Aletha Flores MD Primary Care Provider [email or web address] Dagoberto Miranda DO Primary Care Provider Amada Patel MD Unavailable [phone] Encounter Details Date Type Department Care Team (Latest Contact Info) Description 02/17/2019 Transcribe Orders [facility] [address] 2[address] [place] [address] Ashley Velez PA-C [address], [address] [place] [address] [email or web address] Hepatitis C virus [...] Info) Description 08/13/2025 10:00 AM EST Telemedicine [facility] [address] [place] [address] Cathie Ward, PMHNP-BC 22 [facility], [address] [place] [address] [email or web address] 09/10/2025 9:00 AM EST Office Visit [facility] [address] [place] [address] Dagoberto Miranda, 170 [facility], 2nd [place] [address] [email or web address] documented as of this encounter Results * (ABNORMAL) Hepatitis C genotyping (02/17/2019 2:12 PM EDT) Pathologist [facility] HCV GENOTYPE 1a(A) Undetected [facility] Comment: (NOTE) ADDITIONAL INFORMATION This test was performed using the Raphael RealTime HCV Genotype II assay ([employer] [place], [place]). Blood (Blood) 02/17/2019 2:1 2 PM EDT 02/17/2019 2:18 PM EDT us Ashley Velez PA-C NON CULTURE MICROBIOLOGY Final Result [facility] [address] [place] [address] * Hepatitis B surface antigen (02/17/2019 2:12 PM EDT) Pathologist [facility] HBV SURFACE ANTIGEN Negative Negative [facility] Blood 02/17/2019 2:12 PM EDT 02/17/2019 2:18 PM EDT us Ashley Velez PA-C LAB BLOOD BKR ORDERABLES Final Result [facility] [address] [place] [address] documented in this encounter Visit Diagnoses Diagnosis Hepatitis C virus infection without hepatic coma, unspecified chronicity- Primary documented in this encounter Additional Health Concerns Assessment Noted Time PHQ-2 Depression Total Score: 0 11/04/19 19 3:01 PM EDT documented as of this encounter Care Teams Shroudman Relationship Specialty Start Date End Date Kassidy Centeno RN [address] [place] [address] [email or web address] PCP - General Internal Medicine 09/15/18 09/28/20 Unknown, Unknown, PCP - General 12/28/21 01/06/22 Aletha Peguero MD [email or web address] PCP - General Family Medicine 01/07/22 04/28/23 Dagoberto Miranda DO [address] [place] [address], 2nd [place] [address] [email or web address] PCP - General Internal Medicine 04/29/23 Amada Patel MD [address] [place] [address], [address] [place] [address] [email or web address] Insurance Assigned Provider 06/19/25 documented as of this encounter Additional Source Comments The information contained in this document represents components of the legal health record. It is not the complete legal health record.[facility]
--- OUTSIDE RECORDS SUMMARY | 2025-07-14 21:50 | XMS_ITS | Encounter Summary ---
Author Organization [facility] Address [address] [place] [address] [place] [address] Phone Care Team Providers Care Stewardesses Teacher Name Role Phone Kassidy Centeno RNglobal head advertiser solutions Provider [phone] Unknown, Unknown Primary Care Provider Aletha Flores MD Primary Care Provider [email or web address] Dagoberto Miranda DO Primary Care Provider Amada Patel MD Unavailable [phone] Encounter Details Date Type Department Care Team (Late Contact Info) Description 01/27/2019 Ancillary Orders [facility] [address] [place] [address] Ashley Velez PA-C [address], [address] [place] [address] [email or web address] Social History Tobacco Use [...] Encounters Date Type Department Care Team (Late Contact Info) Description 08/13/2025 10:00 AM EST Telemedicine [facility]al Health [address] [place] [address] Cathie Ward, HNP- 22 [facility], [address] [place] [address] [email or web address] 09/10/2025 9:00 AM EST Office Visit [facility] [address] [place] [address] Dagoberto Miranda DO [address] [place] [address], [address] [place] [address] [email or web address] documented as of this encounter Visit Diagnoses Not on filedocumented in this encounter Additional Health Concerns Assessment Noted Time PHQ-2 Depression Total Score: 0 11/04/19 19 3:01 PM EDT documented as of this encounter Care Teams Stewardesses Teacher Relationship Specialty Start Date End Date Kassidy Centeno RN [address] [place] [address] [email or web address] PCP - General Internal Medicine 09/15/18 09/28/20 Unknown, Angelica, PCP - General 12/28/21 01/06/22 Aletha Peguero MD [email or web address] PCP - General Family Medicine 01/07/22 04/28/23 Dagoberto Miranda DO [address] [place] [address], [address] [place] [address] PCP - General Internal Medicine 04/29/23 Amada Patel MD [address] [place] [address], [address] [place], [place] [id number] [email or web address] Insurance Assigned Provider 06/19/25 documented as of this encounter Additional Source Comments The information contained in this document represents components of the legal health record. It is not the complete legal health record.[facility]
--- OUTSIDE RECORDS SUMMARY | 2025-07-14 21:51 | XMS_ITS | Encounter Summary ---
Author Organization [facility] Address [facility] [place] [address] [place] [address] Phone Care Team Providers Care Electrical Estimator Name Role Phone RubenCecilebryan Penaloza DO Primary Care Provider Amada Patel MD Unavailable [phone] Reason for Visit * Reason Onset Date Comments Appointment 07/14/2025 Encounter Details Date Type Department Care Team (Late st Contact Info) Description 07/14/2025 Telephone [facility]al Health [address] [place] [address] Unknown, Unknown, Appointment Social History Tobacco Use Types Packs/Day Years [...] as of this encounter Progress Notes * Amada Ram - 07/14/2025 2:57 PM EST PT lvm on 07/13 requesting an appt. [facility] Call Center CSS Agent (Please do not reply to this user, as this inbox is not monitored. Thank you.) Thank you. documented in this encounter Plan of Treatment Upcoming Encounters Date Type Department Care Team (Late st Contact Info) Description 08/13/2025 10:00 AM EST Telemedicine [facility] Behavioral Health [address] [place] [address] [place] [address] Cathie Ward, HNP- 22 [facility], [facility] 205 [place] [address] 09/10/2025 9:00 AM EST Office Visit [facility] [address] [place] [address] [place] [address] Dagoberto Miranda DO 170 [facility], 2nd [place] [address] documented as of this encounter Visit Diagnoses Not on filedocumented in this encounter Additional Health Concerns Assessment Noted Time PHQ-2 Depression Total Score: 2 10/08/19 24 8:07 AM EST documented as of this encounter Care Teams Electrical Estimator Relationship Specialty Start Date End Date Dagoberto Miranda DO [address] [place] [address], 2nd [place] [address] [email or web address] PCP - General Internal Medicine 04/29/23 Amada Patel MD [address] [place] [address], [address] [place] [address] [email or web address] Insurance Assigned Provider 06/19/25 documented as of this encounter Additional Source Comments The information contained in this document represents components of the legal health record. It is not the complete legal health record.[facility]
--- OUTSIDE RECORDS SUMMARY | 2025-07-14 21:51 | XMS_ITS | Encounter Summary ---
Author Organization [facility] Address [facility] [address] [place] [address] Phone Care Team Providers Care Recruitment Manager Name Role Phone Ruben Dagoberto Penaloza DO Primary Care Provider Amada Patel MD Unavailable [phone] Encounter Details Date Type Department Care Team (Late st Contact Info) Description 10/01/2023 Procedure Pass [facility], Ct Scan - [facility] 30 [place] [address] Social History Tobacco Use Types Packs/Day Years [...] 10/01/2023 10:01 AM Denia Tuttle RN * [place] Suicide Severity Rating Scale (Screener/Recent Self-Report) Question [...] Info) Description 08/13/2025 10:00 AM EST Telemedicine [facility] Health [address] [place] [address] [place] [address] Cathie Ward, [facility]- 22 [facility], [facility] 205 [place] [address] 09/10/2025 9:00 AM EST Office Visit [facility] [address] [place] [address] Dagoberto Miranda DO [address] [place] [address] documented as of this encounter Visit Diagnoses Not on filedocumented in this encounter Additional Health Concerns Assessment Noted Time PHQ-2 Depression Total Score: 1 01/04/20 22 10:37 AM EDT documented as of this encounter Care Teams Recruitment Manager Relationship Specialty Start Date End Date Dagoberto Miranda DO [address] [place] [address] PCP - General Internal Medicine 04/29/23 Amada Patel MD [address] [place] [address], [address] [place] [address] [email or web address] Insurance Assigned Provider 06/19/25 documented as of this encounter Additional Source Comments The information contained in this document represents components of the legal health record. It is not the complete legal health record.[facility]
--- OUTSIDE RECORDS SUMMARY | 2025-07-14 21:51 | XMS_ITS | Encounter Summary ---
Author Organization [facility] Address [address] [facility] [place] [address] Phone Care Team Providers Care Diver Pumper Name Role Phone Dagoberto Miranda DO Primary Care Provider Amada Patel MD Unavailable [phone] Encounter Details Date Type Department Care Team (Late st Contact Info) Description 03/16/2024 Procedure Pass [facility] Endoscopy Admitting Dept Virtual Department 30 [place] [address] Social History Tobacco Use Types Packs/Day Years [...] Info) Description 08/13/2025 10:00 AM EST Telemedicine [facility] Health [address] [place] [address] Cath[facility], [facility] 22 [facility], [address] [place] [address] 09/10/2025 9:00 AM EST Office Visit [facility] [address] [place] [address] [place] [address] Dagoberto Miranda DO 170 [facility], [address] [place] [address] documented as of this encounter Visit Diagnoses Not on filedocumented in this encounter Additional Health Concerns Assessment Noted Time PHQ-2 Depression Total Score: 2 10/08/19 24 8:07 AM EST documented as of this encounter Care Teams Diver Pumper Relationship Specialty Start Date End Date Dagoberto Miranda DO [address] [place] [address], [address] [place] [address] PCP - General Internal Medicine 04/29/23 Amada Patel MD [address] [place] [address] [address] [place] [address] [email or web address] Insurance Assigned Provider 06/19/25 documented as of this encounter Additional Source Comments The information contained in this document represents components of the legal health record. It is not the complete legal health record.[facility]
--- OUTSIDE RECORDS SUMMARY | 2025-07-14 21:51 | XMS_ITS | Encounter Summary ---
Author Organization [facility] Address [address] [place] [address] Phone Care Team Providers Care Concrete Analyst Name Role Phone Dagoberto Miranda DO Primary Care Provider Amada Patel MD Unavailable [phone] Encounter Details Date Type Department Care Team (Late st Contact Info) Description 02/02/2025 Procedure Pass [facility], [facility] 30 [place] [address] Social History Tobacco Use Types Packs/Day Years [...] Info) Description 08/13/2025 10:00 AM EST Telemedicine [facility] Behavioral Health [address] [place] [address] Cathie Ward, [facility] 22 [facility], [address] [place] [address] 09/10/2025 9:00 AM EST Office Visit [facility] [address] [place] [address] [place] [address] Dagoberto Miranda DO 170 [facility], [address] [place] [address] [email or web address] documented as of this encounter Visit Diagnoses Not on filedocumented in this encounter Additional Health Concerns Assessment Noted Time PHQ-2 Depression Total Score: 2 10/08/19 24 8:07 AM EST documented as of this encounter Care Teams Concrete Analyst Relationship Specialty Start Date End Date Dagoberto Miranda DO [address] [place] [address], [address] [place] [address] PCP - General Internal Medicine 04/29/23 Amada Patel MD [address] [place] [address], [address] [place], [place] [id number] Insurance Assigned Provider 06/19/25 documented as of this encounter Additional Source Comments The information contained in this document represents components of the legal health record. It is not the complete legal health record.[facility]
--- OUTSIDE RECORDS SUMMARY | 2025-07-14 21:51 | XMS_ITS | Encounter Summary ---
Author Organization [facility] Address [address] [place] [address] [place] [address] Phone Care Team Providers Care Cylinder Inspector Name Role Phone Myrnamckinley SamJonnie Parada MD Primary Care Provider [email or web address] Centeno RNadvertising vice president Provider [phone] Unknown, Unknown Primary Care Provider Aletha Flores MD Primary Care Provider [email or web address] Dagoberto Miranda DO Primary Care Provider Amada Patel MD Unavailable [phone] Encounter Details Date Type Department Care Team (Late st Contact Info) Description 07/18/2017 Procedure Pass [facility], Ct Scan - [address] [address] Social History Tobacco Use Types Packs/Day Years [...] Info) Description 08/13/2025 10:00 AM EST Telemedicine [facility] Behavioral Health [address] [place] [address] [place] [address] Cathie Ward, YUDI-[address], [address] [place] [address] [email or web address] 09/10/2025 9:00 AM EST Office Visit [facility] [address] [place] [address] [place] [address] Dagoberto Miranda DO 170 [facility], [address] [place] [address] [email or web address] documented as of this encounter Visit Diagnoses Not on filedocumented in this encounter Care Teams Cylinder Inspector Relationship Specialty Start Date End Date Norris Silverman MD [email or web address] PCP - General Family Medicine 07/18/17 09/14/18 Kassidy Centeno RN [address] [place] [address] PCP - General Internal Medicine 09/15/18 09/28/20 Unknown, Unknown, MD PCP - General 12/28/21 01/06/22 Aletha Peguero MD [email or web address] PCP - General Family Medicine 01/07/22 04/28/23 Dagoberto Miranda DO [address] [place] [address], [address] [place] [address] [email or web address] PCP - General Internal Medicine 04/29/23 Amada Patel MD [address] [place] [address] 7 [place] [address] Insurance Assigned Provider 06/19/25 documented as of this encounter Additional Source Comments The information contained in this document represents components of the legal health record. It is not the complete legal health record.[facility]
--- OUTSIDE RECORDS SUMMARY | 2025-07-14 21:51 | XMS_ITS | Encounter Summary ---
Author Organization [facility] Address [address] [place] [address] [place] [address] Phone Care Team Providers Care Customer Service Representative Teller Name Role Phone Kassidy Centeno RNdirector financial systems Provider [phone] Unknown, Unknown Primary Care Provider Aletha Flores MD Primary Care Provider [email or web address] Dagoberto Miranda DO Primary Care Provider Amada Patel MD Unavailable [phone] Encounter Details Date Type Department Care Team (Late st Contact Info) Description 10/16/2018 Ancillary Orders Virtual Department 30 [place] [address] Ashley Velez PA-C [address], [address]. [address] [place] [address] [email or web address] Hepatitis C virus infection without hepatic coma, [...] Info) Description 08/13/2025 10:00 AM EST Telemedicine [facility] Behavioral Health [address] [place] [address] [place] [address] Cathie Ward, HNP- 22 [facility], [address] [place] [address] [email or web address] 09/10/2025 9:00 AM EST Office Visit [address] [place] [address] Dagoberto Miranda DO [address] [place] [address], [address] [place] [address] documented as of this encounter Visit Diagnoses Diagnosis Hepatitis C virus infection without hepatic coma, unspecified chronicity documented in this encounter Care Teams Customer Service Representative Teller Relationship Specialty Start Date End Date Kassidy Centeno RN 30 [place] [address] [email or web address] PCP - General Internal Medicine 09/15/18 09/28/20 Unknown, Unknown, PCP - General 12/28/21 01/06/22 Aletah Peguero MD [email or web address] PCP - General Family Medicine 01/07/22 04/28/23 Dagoberto Miranda DO [address] [place] [address], [address] [place] [address] PCP - General Internal Medicine 04/29/23 Amada Patel MD [address] [place] [address] 7 [place] [address] [email or web address] Insurance Assigned Provider 06/19/25 documented as of this encounter Additional Source Comments The information contained in this document represents components of the legal health record. It is not the complete legal health record.[facility]
--- OUTSIDE RECORDS SUMMARY | 2025-07-14 21:51 | XMS_ITS | Encounter Summary ---
Author Organization [facility] Address [address] [place] [address] [place] [address] Phone Care Team Providers Care Locomotive Oiler Name Role Phone Norris Silverman MD Primary Care Provider [email or web address] Kassidy Centeno RNbrushing machine operator Provider [phone] Unknown, Unknown Primary Care Provider Aletha Flores MD Primary Care Provider [email or web address] Dagoberto Miranda DO Primary Care Provider Amada Patel MD Unavailable [phone] Reason for Referral * MRI/CAT Scan - Closed Specialty Diagnoses / Procedures Referred By Contari t Referred To Contact Radiology Diagnoses Lumbar radiculopathy Procedures MRI Lumbar Spine Solomon Mason NP Phone: tel: fax: [email or web address] Referral ID Status Reason Start Date Expiration Date Visits Re quested Visits Authorized [id number] Closed 10/01/2017 11/30/2017 1 1 Encounter Details Date Type Department Care Team (Latest Contact Info) Description 10/04/2017 Ancillary Orders [facility] Department [address] [place] [address] [phone] Solomon Mason NP 6 [place] [address] [email or web address] Lumbar radiculopathy Social History Tobacco Use [...] Info) Description 08/13/2025 10:00 AM EST Telemedicine [facility] Behavioral Health [address] [place] [address] [place] [address] Cathie Ward, HNP- 22 [facility], [address] [place] [address] [email or web address] 09/10/2025 9:00 AM EST Office Visit [facility] [address] [place] [address] [place] [address] Dagoberto Miranda, 170 [facility], 2nd [place] [address] [email or web address] documented as of this [...] of clear concern are identified within the [id number]. Conus appears to be present at L1. [...] of clear concern are identified within the [id number]-fb-rjsa.Conus appears to be present at L1. No [...] Leo on 10/18/2017 4:18 PM Solomon Mason NP IMG MR XSPECIALTY Final R esult documented in this encounter Visit Diagnoses Diagnosis Lumbar radiculopathy Thoracic or lumbosacral neuritis or radiculitis, unspecified Lumbar radiculopathy Thoracic or lumbosacral neuritis or radiculitis, unspecified documented in this encounter Care Teams Locomotive Oiler Relationship Specialty Start Date End Date Norris Silverman MD [email or web address] PCP - General Family Medicine 07/18/17 09/14/18 Kassidy Centeno RN [address] [place] [address] PCP - General Internal Medicine 09/15/18 09/28/20 Unknown, Angelica, PCP - General 12/28/21 01/06/22 Aletha Peguero MD [email or web address] PCP - General Family Medicine 01/07/22 04/28/23 Dagoberto Miranda DO [address] [place] [address], 2nd [place] [address] [email or web address] PCP - General Internal Medicine 04/29/23 Amada Patel MD [address] [place] [address] 7 [place] [address] [email or web address] Insurance Assigned Provider 06/19/25 documented as of this encounter Additional Source Comments The information contained in this document represents components of the legal health record. It is not the complete legal health record.[facility]
--- OUTSIDE RECORDS SUMMARY | 2025-07-14 21:51 | XMS_ITS | Encounter Summary ---
Author Organization [facility] Address [address] [place] [address] [place] [address] Phone Care Team Providers Care Fmd Teacher Name Role Phone Kassidy Centeno RNhalf section ironer Provider [phone] Unknown, Unknown Primary Care Provider Aletha Flores MD Primary Care Provider [email or web address] Dagoberto Miranda DO Primary Care Provider Amada Patel MD Unavailable [phone] Encounter Details Date Type Department Care Team (Late st Contact Info) Description 01/27/2019 Ancillary Orders Virtual Department 30 [place] [address] Ashley Velez PA-C [address], [address] [place] [address] [email or web address] Hepatitis C virus [...] Info) Description 08/13/2025 10:00 AM EST Telemedicine [facility] Behavioral Health [address] [place] [address] Cathie Ward, PMHNP-BC [address] [facility], [address] [place] [address] 09/10/2025 9:00 AM EST Office Visit [facility] [address] [place] [address] Dagoberto Miranda, 170 [facility], 2nd [place] [address] documented as of this encounter Results * US ABDOMEN LIMITED RIGHT UPPER QUADRANT (02/10/2019 10:23 AM EDT) Anatomical Region Laterality Modality Abdomen Ultrasound 02/10/2019 1:02 PM EDT Impressions 02/10/2019 1:25 PM EDT Normal ultrasound appearance of the liver. No liver masses. Normal Doppler flow in the main portal vein. POS - [id number] Narrative 02/10/2019 1:25 PM EDT EXAM: US [...] in the main portal vein. POS - [id number] us Ashley Velez PA-C IMG US ABDOMEN Final Result documented in this encounter Visit Diagnoses Diagnosis Hepatitis C virus infection without hepatic coma, unspecified chronicity Hepatitis C virus infection without hepatic coma, unspecified chronicity documented in this encounter Additional Health Concerns Assessment Noted Time PHQ-2 Depression Total Score: 0 11/04/19 19 3:01 PM EDT documented as of this encounter Care Teams Fmd Teacher Relationship Specialty Start Date End Date Kassidy Centeno RN [address] [place] [address] PCP - General Internal Medicine 09/15/18 09/28/20 Unknown, Angelica, PCP - General 12/28/21 01/06/22 Aletha Peguero MD [email or web address] PCP - General Family Medicine 01/07/22 04/28/23 Dagoberto Miranda DO [address] [place] [address], 2nd [place] [address] [email or web address] PCP - General Internal Medicine 04/29/23 Amada Patel MD [address] [place] [address], [address] [place] [address] [email or web address] Insurance Assigned Provider 06/19/25 documented as of this encounter Additional Source Comments The information contained in this document represents components of the legal health record. It is not the complete legal health record.[facility]
--- OUTSIDE RECORDS SUMMARY | 2025-07-14 21:51 | XMS_ITS | Encounter Summary ---
Author Organization [facility] Address [address] [place] [address] Phone Care Team Providers Care Vest Front Presser Name Role Phone Myrnamckinley SamJonnie Parada MD Primary Care Provider [email or web address] [email or web address] Centeno RNbarrel rifler button Provider [phone] Unknown, Unknown Primary Care Provider Aletha Flores MD Primary Care Provider [email or web address] Dagoberto Miranda DO Primary Care Provider Amada Patel MD Unavailable [phone] Encounter Details Date Type Department Care Team (Late st Contact Info) Description 10/04/2017 Procedure Pass [facility], [address] [address] Social History Tobacco Use Types Packs/Day Years [...] Info) Description 08/13/2025 10:00 AM EST Telemedicine [facility] [address] [place] [address] [place] [address] Cathie Ward, YUDI-[address] [place] [address] [email or web address] 09/10/2025 9:00 AM EST Office Visit [facility] [address] [place] [address] Dr [place] [address] Dagoberto Miranda DO [address] [facility], 2nd [place] [address] [email or web address] documented as of this encounter Visit Diagnoses Not on filedocumented in this encounter Care Teams Vest Front Presser Relationship Specialty Start Date End Date Norris Silverman MD [email or web address] PCP - General Family Medicine 07/18/17 09/14/18 Kassidy Centeno RN [address] [place] [address] PCP - General Internal Medicine 09/15/18 09/28/20 Unknown, Unknown, PCP - General 12/28/21 01/06/22 Aletha Peguero MD [email or web address] PCP - General Family Medicine 01/07/22 04/28/23 Dagoberto Miranda DO [address] [place] [address], [address] [place] [address] [email or web address] PCP - General Internal Medicine 04/29/23 Amada Patel MD [address] [place] [address], [facility] [address] [place] [address] [email or web address] Insurance Assigned Provider 06/19/25 documented as of this encounter Additional Source Comments The information contained in this document represents components of the legal health record. It is not the complete legal health record.[facility]
--- OUTSIDE RECORDS SUMMARY | 2025-07-14 21:51 | XMS_ITS | Clinical Summary ---
Author Organization [facility] Address [address] [place] [address] Phone Care Team Providers Care Bus Mechanic Name Role Phone RubenCecilebryan Penaloza DO Primary Care Provider Amada Patel MD Unavailable [phone] Allergies No known active allergies Medications therapeutic [...] 10/28/19 24 Active blood-glucose meter,continuous (DEXCOM G6 PEANUT ROASTER) Misc Replace every 360 days for blood [...] times a day. 56.6 g 1 04/30/20 Active Additional Information Patient not taking.Reported on [...] Contour Next EZ 100 strip 3 01/21/20 Active blood-glucose sensor (DEXCOM G6 SENSOR) Kerry Replace every 10 days for blood sugar monitoring in diabetes. 5 each 3 01/23/20 Active blood-glucose meter kit Use as instructed for glucose testing. DM Type 1, on insulin. 1 each 01/26/20 25 Active DULoxetine (CYMBALTA) 60 MG capsule TAKE 1 CAPSULE BY MOUTH DAILY 90 capsule 3 03/08/20 25 Active ULTICARE PEN NEEDLE 32 gauge x 1/4 Ndle USE ONCE DAILY WITH INSULIN 100 each 3 03/11/20 25 Active blood sugar diagnostic Strp strips 1 each by Miscellaneous route 4 (four) times a day before meals and nightly. DM Type 1, on insulin. 400 strip 3 04/21/20 25 Active diclofenac sodium (VOLTAREN) 75 MG EC tabletIndications :Chronic bilateral low back pain with right-sided sciatica Take 1 tablet (75 mg total) by mouth 2 (two) times a day. 60 tablet 2 05/28/20 25 Active clonazePAM (KLONOPIN) 0.5 MG tabletIndications :Anxiety state Take 1 tablet (0.5 mg total) by mouth 2 (two) times a day as needed for anxiety. 60 tablet 06/29/20 25 Active oxyCODONE-acetami nophen (PERCOCET) 10-325 mg per tablet Take 1 tablet by mouth every 4 (four) hours as needed for pain (specific location in comments). Partial fill ok 60 tablet 06/29/20 25 Active cyclobenzaprine (FLEXERIL) 10 MG tabletIndications :Chronic bilateral low back pain with right-sided sciatica Take 1 tablet (10 mg total) by mouth 3 (three) times a day as needed (muscle spasm). 90 tablet 3 07/07/20 25 Active clonazePAM (KLONOPIN) 0.5 MG tabletIndications :Anxiety state Take 1 tablet (0.5 mg total) by mouth 2 (two) times a day as needed for anxiety. 60 tablet 04/21/20 25 025 Discontin ued(Reord er) cyclobenzaprine (FLEXERIL) 10 MG tabletIndications :Chronic bilateral low back pain with right-sided sciatica Take 1 tablet (10 mg total) by mouth 3 (three) times a day as needed (muscle spasm). 90 tablet 3 05/11/20 25 025 Discontin ued(Reord er) oxyCODONE-acetami nophen (PERCOCET) 10-325 mg per tablet Take 1 tablet by mouth every 4 (four) hours as needed for pain (specific location in comments). Partial fill ok 60 tablet 05/28/20 25 025 Discontin ued(Reord er) Active Problems [...] tumor marker is elevated, would refer to [facility] oncology for removal Ms villa is considering [...] to return to meet with our cosmetology educator/sample sewer, we will meet next month for routine [...] Encounters Date Type Department Care Team Description 07/14/2025 Telephone [facility] [address] [place] [address] [place] [address] Unknown, Unknown, Appointment 07/07/2025 Refill [facility]in [address] [place] [address] Dagoberto Miranda, DO Medication Refill 07/07/2025 Telephone [facility] [place] [address] Dagoberto Miranda, DO Referral 06/28/[address] [place] [address] Shelbi Guerra Medication Refill 05/20/2025 9:16 AM EDT - 05/20/2025 11:59 PM EDT Hospital Encounter [address] [place] [address] Dagoberto Mrianda, DO Discharge Disposition: Home or Self Care 05/20/2025 9:15 AM EDT Hospital Encounter [address] [place] [address] Dagoberto Miranda, Discharge Disposition: Home or Self Care 05/13/[address] [place] [address] Dagoberto Miranda, Referral 05/11/2025 Orders Only [address] [place] [address] Dagoberto Miranda, Chronic bilateral low back pain with right-sided sciatica 05/03/2025 [facility] RISK SCORES SYSTEM GENERATED External System Generated Encounter [address] [place] [id number] Unknown, Unknown, 04/20/[address] [place] [address] Dagoberto Miranda, Medication Refill (/) 02/02/2025 Procedure Pass [address] [place] [address] 02/02/2025 Procedure Pass [address] [place] [address] from Last 3 Months Immunizations Immunization Administration [...] 0.5 95.9 Started: 08/05/1976 Smokeless Tobacco: Never Tobacco Cessation:Ready to Q uit: Not Asked; Counseling Given: Not Answered Comments:I would love to quit. Alcohol Use Standard Drinks/Week Comments Yes 14 [...] Info) Description 08/13/2025 10:00 AM EST Telemedicine [facility] [address] [place] [address] Cathie Ward, HNP- [address] [facility], [address] [place] [address] [email or web address] 09/10/2025 9:00 AM EST Office Visit [facility] [address] [place] [address] Dagoberto Miranda, [address] [facility] [place] [place], [address] [place] [address] [email or web address] Health Maintenance Due Date Last Done Comments PNEUMOCOCCAL VACCINES (50+ years) (1 of 2 - PCV) 1982 COLOGUARD 2008 COLONOSCOPY 2008 COLORECTAL CANCER SCREENING 2008 FIT TEST 2008 FOBT 2008 SIGMOIDOSCOPY 2008 VIRTUAL COLONOSCOPY 2008 LUNG CANCER SCREENING (LDCT Only) 2013 RSV VACCINE (1 - Risk 50-74 years 1-dose series) 2013 ZOSTER VACCINES (1 of 2) 2013 DIABETIC EYE EXAM 01/07/2022 DEPRESSION SCREENING 10/07/2024 10/08/2023 INFLUENZA VACCINE (#1) 2025 3, 06/13/2020, 07/03/2017 COVID-19 VACCINE (4 - 2024- season) 2025 09/08/2021, 10/19/2020, 09/21/2020 BLOOD PRESSURE 08/05/2025 02/02/2025 HEMOGLOBIN A1C 08/12/2025 02/09/2025, 10/03, 10/09/2023, Additional history exists LIPID PANEL 10/21/2025 10/21/2024, 06/0 08/2021, 11/03/2018 URINE MICROALBUMIN/CREATININE RATIO 10/21/2025 10/21/2024, 01/03/2022 SMOKING Hx and SMOKELESS TOBACCO SCREENING 05/20/2026 05/20/2025 PAP SMEAR 03/17/2027 03/17/2024 MAMMOGRAM 05/20/2027 05/20/2025 Adult Td,Tdap Booster 12/24/2027 12/23/2017 HEPATITIS C [...] Procedure Name Priority Date/Time Associated Diagnosis Comments BI US BREAST LIMITED (LEFT) Routine 05/20/2025 10:30 AM EDT Mass of upper inner quadrant of left breast BI MAMMOGRAM DIAGNOSTIC WITH TOMOSYNTHESIS WITH CAD (BILATERAL) Routine 05/20/2025 9:38 AM EDT Type 1 diabetes mellitus without complications Lumbar herniated disc Lumbar radiculopathy Annual physical exam Mass of upper inner quadrant of left breast HEMOGLOBIN A1C Routine 02/09/2025 9:48 AM EDT Type 1 diabetes mellitus without complication MICROALBUMIN/CREATINI NE RATIO, RANDOM URINE Routine 10/21/2024 9:29 AM EDT Type 1 diabetes mellitus with hyperglycemia LIPID PANEL Routine 10/21/2024 9:22 AM EDT Type 1 diabetes mellitus with hyperglycemia PAP TEST Routine 03/17/2024 12:00 AM EDT HEPATITIS C VIRAL LOAD, PCR Routine 01/03/2022 11:20 AM EDT Chronic hepatitis C without hepatic coma from Last 3 Months or Most Recently Relevant to Health Maintenance Results * BI US BREAST LIMITED (LEFT) (05/20/2025 10:30 AM EDT) Anatomical Region Laterality Modality Breast Left, Breast Bilateral Left Ul trasound 05/20/2025 9:56 AM EDT Impressions 05/20/2025 10:35 AM EDT No imaging findings suspicious for malignancy. Clinical follow-up recommended as well as bilateral screening mammography in 12 months. BI-RADS 2 BENIGN Results and recommendations were communicated to the patient at time of examination. Narrative 05/20/2025 10:35 AM EDT BI MAMMOGRAM DIAGNOSTIC WITH TOMOSYNTHESIS WITH CAD (BILATERAL), BI US BREAST LIMITED (LEFT) Additional patient information: Palpable lump 10:00 position left breast. Reportedly, the patient is status-post benign left breast biopsy. COMPARISON: Comparison is made with relevant prior imaging. Breast composition: The breasts are extremely dense, which lowers the sensitivity of mammography. FINDINGS: Right Mammogram: No abnormal masses, suspicious calcifications, or other significant findings are identified mammographically in the right breast. There is no change since previous examination. Left Mammogram: No abnormal masses, suspicious calcifications, or other significant findings are identified mammographically in the left breast. There is no change since previous examination. There are a few diffusely distributed microcalcifications with benign characteristics. Left Ultrasound: Targeted ultrasound was performed in the area of clinical concern as indicated by the patient. No sonographic abnormality is seen. us Dagoberto Miranda DO IMG US BREAST Final R esult * BI MAMMOGRAM DIAGNOSTIC WITH TOMOSYNTHESIS WITH CAD (BILATERAL) (05/20/2025 9:38 AM EDT) Anatomical Region Laterality Modality Breast Left, Breast Right, Breast Bilateral Bila teral Mammography 05/20/2025 9:56 AM EDT Impressions 05/20/2025 10:35 AM EDT No imaging findings suspicious for malignancy. Clinical follow-up recommended as well as bilateral screening mammography in 12 months. BI-RADS 2 BENIGN Results and recommendations were communicated to the patient at time of examination. Narrative 05/20/2025 10:35 AM EDT BI MAMMOGRAM DIAGNOSTIC WITH TOMOSYNTHESIS WITH CAD (BILATERAL), BI US BREAST LIMITED (LEFT) Additional patient information: Palpable lump 10:00 position left breast. Reportedly, the patient is status-post benign left breast biopsy. COMPARISON: Comparison is made with relevant prior imaging. Breast composition: The breasts are extremely dense, which lowers the sensitivity of mammography. FINDINGS: Right Mammogram: No abnormal masses, suspicious calcifications, or other significant findings are identified mammographically in the right breast. There is no change since previous examination. Left Mammogram: No abnormal masses, suspicious calcifications, or other significant findings are identified mammographically in the left breast. There is no change since previous examination. There are a few diffusely distributed microcalcifications with benign characteristics. Left Ultrasound: Targeted ultrasound was performed in the area of clinical concern as indicated by the patient. No sonographic abnormality is seen. us Dagoberto Miranda DO IMG MG EXAMS Final R esult * Hemoglobin A1c (02/09/2025 9:48 AM EDT) HEMOGLOBIN A1C 5.8 4.3 - 5.8 % [facility] Blood 02/09/2025 9:48 AM EDT 02/09/2025 9:55 AM EDT us Dagoberto Miranda DO LAB BLOOD BKR ORDERABLE S Final Result [address] [address] * Microalbumin/creatinine ratio, random urine (10/21/2024 9:29 AM EDT) URINE MICROALBUMIN <1.2 0 - 2.3 mg/dL [facility] URINE CREATININE 66 mg/dL [facility] MICROALB/CRE RATIO NOT CALCULATED 0 - 20 mg/g Cre [facility] Comment:due to Microalbumin <1.2 Urine 10/21/2024 9:29 AM EDT 10/21/2024 9:32 AM EDT us Dagoberto Miranda DO LAB URINE ORDERABLES Fi nal Result Performing Organization Address [facility] Co de Phone Number [address] [address] * Lipid panel (10/21/2024 9:22 AM EDT) HDL 48 mg/dL [facility] Comment: Interpretation <40 mg/dL: Low HDL cholesterol (major risk factor for CHD) Greater than or equal to 60 mg/dL: High HDL cholesterol ( negative risk factor for CHD) HDL - cholesterol is affected by a number of factors, e.g. smoking, excerise, hormones, sex and age. CHOLESTEROL 163 0 - 240 mg/dL [facility] TRIGLYCERIDES 135 30 - 160 mg/dL [facility] LDL 88 50 - 129 mg/dL [facility] Comment: LDL levels in terms of risk for coronary heart disease: <100 mg/dL: Optimal 100-129 mg/dL: Near or above optimal 130-159 mg/dL: Borderline high 160-189 mg/dL: High >190 mg/dL: Very High CARDIAC RISK RATIO 3.4 3.3 - 4.4 C [facility] Blood 10/21/2024 9:22 AM EDT 10/21/2024 9:27 AM EDT us Dagoberto Miranda DO LAB BLOOD BKR ORDERABLE S Final Result Performing Organization Address City/[facility] Co de Phone Number [address] [address] * Pap Test (03/17/2024 12:00 AM EDT) Report [address] [address] Litigation Legal Secretary: Emily Parker MD [facility] Cytology Report FINAL DIAGNOSIS A. PAP SMEAR (THIN PREP) CE: SPECIMEN ADEQUACY: Satisfactory for evaluation; transformation zone absent/insufficien t. INTERPRETATION: NEGATIVE FOR INTRAEPITHELIAL LESION OR MALIGNANCY. This specimen was analyzed by the automated ThinPrep Imaging System ([employer] and the selected larios were reviewed by a senior investigator. Electronically Signed Out By: JHONNY Ham(ASCP) The [...] 59, 66, 68) Note: Testing performed by [employer] HR-HPV analysis. Clinical correlation is advised. This HPV test was performed at [facility], [address] [place] [address]. This test has been FDA approved for both SurePath and ThinPrep cervical cytology specimens. The accuracy and precision of this test for all other specimen sources has been verified in the Cytopathology Laboratory of the [facility] and has not been cleared or approved by the U.S. Food and Drug Administration. Clinical correlation is advised. CLINICAL HISTORY Date of Last Menstrual Period: Not Provided Menstrual History: Post Menopausal Other Clinical Conditions: Screening Pap SPECIMEN SOURCE A: PAP SMEAR (THIN PREP) CE Patient Name: KAREN VILLA : 1965 (Age: 58) Sex: F Institution: [facility] Location: [facility] Date of Collection: 03/17/2024 Date of Reported: 03/23/2024 17:07 Results to: Deonna Munguia MD [facility] Final Diagnosis A. PAP SMEAR (THIN PREP) CE: SPECIMEN ADEQUACY: Satisfactory for evaluation; transformation zone absent/insufficien t. INTERPRETATION: NEGATIVE FOR INTRAEPITHELIAL LESION OR MALIGNANCY. This specimen was analyzed by the automated ThinPrep Imaging System ([employer] and the selected larios were reviewed by a senior investigator. [facility] Results\Inter pretation A. PAP SMEAR (THIN PREP) CE: Human Papilloma Virus TestNEGATIVE for high-risk Human Papilloma Virus types 16, 18, 45 and the Other high risk probe set (Includes 31, 33, 35, 39, 51, 52, 56, 58, 59, 66, 68)Note: Testing performed by [employer] HR-HPV analysis. Clinical correlation is advised. This HPV test was performed at [facility], [address] [place] [address]. This test has been FDA approved for both SurePath and ThinPrep cervical cytology specimens. The accuracy and precision of this test for all other specimen sources has been verified in the Cytopathology Laboratory of the [facility] and has not been cleared or approved by the U.S. Food and Drug Administration. Clinical correlation is advised. [facility] Conversion Type (Conversion Source) 03/17/2024 03/18/2024 9:01 AM EDT us Deonna Munguia MD CYTOLOGY ORDERABLES Edited Resul t - Final [facility] [address] [place] [address] * Hepatitis C viral load (PCR) (01/03/2022 11:20 AM EDT) HCV RNA DETECT/QNT Undetected Undetected IU/mL [facility] Comment: (NOTE) Result in log IU/mL is Undetected. ADDITIONAL INFORMATION The quantification range of this assay is 15 to 100,000,000 IU/mL (1.18 log to 8.00 log IU/mL). Testing was performed using the colten HCV test ([employer] with the colten 6800 System. Blood (Blood) 01/03/2022 11: 20 AM EDT 01/03/2022 11:28 AM EDT us Aletha Peguero MD LAB BLOOD BKR ORDERABLES Final R esult [facility] [address] [place] [address] from Last 3 Months or Most Recently Relevant to Health Maintenance Insurance [facility] [place] [id number] [facility] [facility] [employer] ACO [facility] ACO [facility] INSURANCE Care Teams Bus Mechanic Relationship Specialty Start Date End Date Dagoberto Miarnda DO [address] [place] [address], [address] [place] [address] [email or web address] PCP - General Internal Medicine 04/29/23 Amada Patel MD [address] [place] [address], [address] [place] [address] [email or web address] Insurance Assigned Provider 06/19/25 Additional Source Comments The information contained in this document represents components of the legal health record. It is not the complete legal health record.[facility]
--- OUTSIDE RECORDS SUMMARY | 2025-07-14 21:51 | XMS_ITS | Encounter Summary ---
Author Organization [facility] Address [address] [place] [address] Phone Care Team Providers Care Ground Wood Supervisor Name Role Phone Dagoberto Miranda DO Primary Care Provider Amada Patel MD Unavailable [phone] Encounter Details Date Type Department Care Team (Late st Contact Info) Description 05/04/2024 Procedure Pass [facility] Admitting Dept Virtual Department [address] [place] [address] Social History Tobacco Use Types Packs/Day Years [...] Info) Description 08/13/2025 10:00 AM EST Telemedicine [facility] [address] [place] [address] Cathie Ward, [facility] [address] [facility], [address] [place] [address] 09/10/2025 9:00 AM EST Office Visit [facility] [address] [place] [address] [place] [address] Dagoberto Miranda DO 170 [facility], [address] [place] [id number] documented as of this encounter Visit Diagnoses Not on filedocumented in this encounter Additional Health Concerns Assessment Noted Time PHQ-2 Depression Total Score: 2 10/08/19 24 8:07 AM EST documented as of this encounter Care Teams Ground Wood Supervisor Relationship Specialty Start Date End Date Dagoberto Miranda DO [address] [place] [address], [address] [place] [address] PCP - General Internal Medicine 04/29/23 Amada Patel MD [address] [place] [address] [address] [place] [address] [email or web address] Insurance Assigned Provider 06/19/25 documented as of this encounter Additional Source Comments The information contained in this document represents components of the legal health record. It is not the complete legal health record.[facility]
== END 2025-07-14 14:03 | disposition home or self-care (01) ==
LOC: HO.NEURO 14:02
PROVIDERS: PCP Pediatrics; Visit Provider Physician Assistant
DX: M54.16 Radiculopathy, lumbar region (principal); M21.372 Foot drop, left foot
CPT/HCPCS: 95886; 95909

== ENCOUNTER → 2025-07-14 14:04 | Outpatient (BNV) | payer MEDICAID, SELFPAY | PROVIDERS: PCP Pediatrics; Visit Provider Physical Medicine & Rehabilitation | DX: G62.89 Other specified polyneuropathies (principal) | CPT/HCPCS: 95886; 95909 ==